=== PATIENT | male | born 1965 | race Caucasian/White ===

== ENCOUNTER → 2017-07-11 15:40 | Outpatient (CLI) | payer MEDICARE, MEDICAID, SELFPAY ==
--- NOTE | 2017-07-11 15:44 | RAD_ITS ---
STUDY: X-RAY CHEST REASON FOR EXAM: Male, 51 years old. Chest pain and cough TECHNIQUE: PA and lateral views of the chest. COMPARISON: 11/04/2015 FINDINGS: Satisfactory position of a left subclavian pacemaker The lungs are clear and expanded. There is no demonstrated pleural abnormality. Normal size heart. Normal mediastinum and zahida. Normal visualized pulmonary arteries. Normal visualized aortic arch and descending thoracic aorta. There are diffuse degenerative changes of the visualized thoracic spine. Normal visualized ribs, clavicles, and shoulders. There is no demonstrated abnormality of the visualized soft tissue structures of the upper abdomen. RAD/Chest PA and Lateral IMPRESSION: No acute pulmonary process Electronically Signed: Santo Lawrence MD at 15:29 EDT , Service support ,
[2017-07-11 15:55] LABS: Bacteria 0 SEEN /hpf (None Seen); Red Blood Cells-Urine 0 SEEN /hpf (0-5); White Blood Cells 0 SEEN /hpf (0-5)
[2017-07-11 16:24] LABS: Color, Urine Yellow (Yellow); Glucose, Dipstick Normal (Normal); Ketone-Dipstick 15 mg/dl (Negative); Leukocyte Esterase-Dipstick Negative /ul (Negative); Nitrite-Dipstick Negative (Negative); Occult Blood-Urine Negative /ul (Negative); Protein-Dipstick Negative (Negative); Specific Gravity, Urine 1.025 (1.002-1.030); Urine Bilirubin Dipstick Negative (Negative); Urine Clarity Clear (Clear); Urine Urobilinogen Normal (Normal)
[2017-07-11 16:29] LABS: Hematocrit 39.6 % (40-54); Hemoglobin 12.6 g/dl (13.0-16.5); Mean Corp Hgb Conc 31.8 g/gl (32-36); Mean Corpuscular Hgb 19.1 pg (27.0-32.0); Mean Corpuscular Volume 60.2 fL (80-94); Platelet Count 194 K/mm3 (150-450); RBC Distribution Width SD 33.2 fl (35.1-43.9); Red Blood Count 6.58 M/mm3 (4.6-6.2); White Blood Count 8.9 K/mm3 (4.4-11.0)
[2017-07-11 16:31] LABS: Prothrombin Time (Protime)PT. 13.4 SECONDS (11.7-14.9)
[2017-07-11 16:35] LABS: Mean Platelet Vol. 11.2 fl (6.2-12.0); Scan Indicated on CBC? Y/N YES- FLAGS NOTED
[2017-07-11 16:48] LABS: Differential Comment SCANNED
[2017-07-11 16:59] LABS: Anion Gap 6 (5-15); BUN 15 mg/dL (7-18); BUN/Creat Ratio 19.5 RATIO (10-20); Calcium,Total 9.2 mg/dL (8.5-10.1); Chloride 103 mmol/L (98-107); Creatinine, Serum 0.77 mg/dL (0.70-1.30); EST Glomerular Filtration Rate 114 mL/min (>60); Est Glom Filt Rate - Afr Amer 138 mL/min (>60); Glucose 92 mg/dL (74-106); Potassium 3.7 mmol/L (3.5-5.1); Sodium Level 139 mmol/L (136-145)
[2017-07-11 17:19] LABS: Mucous, Urine 3+ /hpf (<or=2+); Squamous Epithelial Cells - UA 0-5 SEEN /hpf (0-5)
== END ==
PROVIDERS: Family Provider Internal Medicine; PCP Internal Medicine; Visit Provider Physician Assistant Medical
DX: Z95.810 Presence of automatic (implantable) cardiac defibrillator (principal); I42.0 Dilated cardiomyopathy; I47.2 Ventricular tachycardia; I47.1 Supraventricular tachycardia; I49.5 Sick sinus syndrome; I44.1 Atrioventricular block, second degree; Z86.79 Personal history of other diseases of the circulatory system
CPT/HCPCS: 36415; 71046; 80048; 81001; 85027; 85610

== ENCOUNTER → 2017-07-26 09:21 | Day surgery (SDC) | payer MEDICARE, MEDICAID, SELFPAY ==
[2017-07-25 11:41] VITALS: BMI 30.9
--- NOTE | 2017-07-26 11:21 | PCM.OP.BLANK ---
Problem List (1) Biventricular implantable cardioverter-defibrillator (ICD) in situ Status: Acute Comment: 12/23/98 Dual chamber pacemaker, 08/12/10 Paacemaker generator change & atrial lead repair, 12/08/10 removal of implanted pacemaker, implant of ventricular lead, implant of coronary vein lead, implant of atrial lead, implant of ICD, ICD generator change 11/29
--- NOTE | 2017-07-26 11:34 | PCM.OP.BLANK ---
Problem List (1) Biventricular implantable cardioverter-defibrillator (ICD) in situ Status: Acute Comment: 12/23/98 Dual chamber pacemaker, 08/12/10 Paacemaker generator change & atrial lead repair, 12/08/10 removal of implanted pacemaker, implant of ventricular lead, implant of coronary vein lead, implant of atrial lead, implant of ICD, ICD generator change 11/29 Operative Report Date of Procedure: 07/26/17 Preoperative diagnosis is device at end of life for normal battery depletion. Postoperative diagnosis same as above. After informed consent and IV antibiotics the patient was brought to the [place] catheterization laboratory and the skin over the device was prepped and draped in the usual sterile manner. Intermittent boluses of Versed, fentanyl and propofol were used for sedation and analgesia as well as 1% subcutaneous lidocaine. An incision was made over the pre-existing device. Using blunt and Bovie dissection the pocket was opened and the device was removed. Careful attention was paid not to injure the pre-existing leads. The leads were removed from the device header and they were interrogated. There is normal lead function. Hemostasis was obtained. The pocket was flushed with antibiotic solution. The sponge and needle count were correct. The new device was brought to the field. The leads were placed in the appropriate position in the header and secured by the set screw. The leads and the device were then placed in the pocket. The pocket was closed with a deep layer of running 2-0 Vicryl, a superficial layer of running 4-0 Vicryl, skin with Steri-Strips which were covered with a rolled 4 x 4 and Tegaderm. Patient left the room with the device programmed to proper parameters and there were no complications. All lead parameters were tested and found to be functionally normal. The patient has a BiV ICD with pacemaker dependency. Normal lead function. Battery replaced due to alert for abrupt battery failure for [place] recall. Tyrex antibiotic pouch placed Lead and device serial and model numbers are available in the chart documents provided by the device company airline security representative procedure summary.
== END ==
PROVIDERS: Family Provider Internal Medicine; PCP Internal Medicine; Visit Provider Internal Medicine Cardiovascular Disease
DX: Z45.010 Encounter for checking and testing of cardiac pacemaker pulse generator [battery] (principal); Z95.810 Presence of automatic (implantable) cardiac defibrillator; I42.0 Dilated cardiomyopathy; I49.5 Sick sinus syndrome; I44.1 Atrioventricular block, second degree; I47.1 Supraventricular tachycardia; I47.2 Ventricular tachycardia; Z86.79 Personal history of other diseases of the circulatory system; E78.5 Hyperlipidemia, unspecified
CPT/HCPCS: 33264; 93641; 99152; 99153; J3010; J7030; J7050; A4216; J2785

== ENCOUNTER 2021-06-19 14:06 | Observation (INO) | payer MEDICARE, MEDICAID, SELFPAY ==
[2021-06-19 14:07] VITALS: BP 118/73; PULSE 70; RESP 18; TEMP 35.8; O2SAT 93; BMI 30.7
--- NOTE | 2021-06-19 14:53 | EDS_ITS ---
HPI HPI - GI History of Present Illness Chief Complaint: Abd Pain Informant: patient Abdominal Pain/Flank Pain Onset: Yesterday Context: Gradual Onset Timing: Intermittent Quality: Aching Location: Epigastric Worsened by: Nothing Relieved by: Nothing Nausea/Vomiting/Emesis GI Symptom: Positive for Nausea and Vomiting Quality: Positive for Nonbilious; Negative for Blood streaks, Coffee ground and Hematemesis Diarrhea/Melena/Hematochezia Stool Quality: Positive for Watery Associated Symptoms Associated Symptoms: Negative for Dysuria, Frequency and Hematuria Narrative Narrative: Patient presents with abdominal pain that began yesterday. Patient states it is gradually getting worse. Patient states it can it comes and goes. Patient states the pain is over the epigastric area. Patient describes it as aching. Patient states nothing makes it better nothing makes it worse. Patient admits to some nausea and vomiting. Patient has a colostomy bag and states his stools are usually liquid. Patient denies any melena or hematochezia. Patient denies any dysuria, frequency, or hematuria. [facility] Medical History (Updated 06/19/21 @ 19:[address] Wilbert Padgett, ) Benign hypertension Dilated cardiomyopathy History of complete heart block History of depression Hyperlipidemia Mental retardation Paroxysmal atrial fibrillation Second degree AV block, Mobitz type II Tachycardia-bradycardia syndrome Ulcerative colitis Ventricular tachycardia Home Medications multivitamin with folic acid 1 tab PO DAILY 11/09/15 [History Last Taken 07/26/17] Handicap placard #1 ea 11/01/18 [Rx Last Taken Unknown] cholecalciferol (vitamin D3) 10 mcg (400 unit) capsule 400 unit PO DAILY 04/23/19 [History Last Taken Unknown] ferrous sulfate 325 mg (65 mg iron) tablet,delayed release 325 mg PO BID tab 04/23/19 [History Last Taken Unknown] vitamin B complex 1 tab PO DAILY 04/23/19 [History Last Taken Unknown] carvedilol 3.125 mg tablet 3.125 mg PO BID #60 tab 08/06/20 [Rx Last Taken Unknown] rivaroxaban 20 mg tablet 20 mg PO QDAY #90 tab 09/02/20 [Rx Last Taken Unknown] digoxin 250 mcg (0.25 mg) tablet 250 mcg PO DAILY #90 tab 11/24/20 [Rx Last Taken Unknown] lisinopril 2.5 mg tablet 2.5 mg PO BID #180 tab 11/24/20 [Rx Last Taken Unknown] Allergy/AdvReac Type Severity Reaction Status Date / Time infliximab [From Remicade] Allergy Unknown Verified 06/19/21 14:09 Family History Unknown No problems noted. Surgical History Biventricular implantable cardioverter-defibrillator (ICD) in situ History of ileostomy Social History Smoking Status: Never smoker alcohol intake: never substance use type: does not use caffeine: Yes Type: tea what type of physical activity do you participate in: none seatbelt use: always do you feel safe at home: Yes ROS ROS ED Constitutional Constitutional ED: Denies chills or fever(s) Eyes Eyes: Denies blurry vision or change in vision ENT ENT ED: Denies rhinorrhea or sore throat Cardiovascular Cardiovascular: Denies chest pain or palpitations Respiratory/Chest Respiratory/Chest: Denies cough or dyspnea Gastrointestinal Gastrointestinal: Reports abdominal pain, nausea and vomiting Genitourinary Genitourinary ED: Denies dysuria or hematuria Musculoskeletal Musculoskeletal: Reports back pain; Denies neck pain Integumentary Denies abscess or rash Neurologic Neurologic: Denies headache(s) or weakness Allergic/Immunologic Allergic/Immunologic ED: Denies mouth swelling or urticaria EXAM Physical Exam Const Vital Signs: 06/19/21 14:07 Temperature 96.5 F L Temperature Source Temporal Pulse Rate 70 Respiratory Rate 18 Blood Pressure 118/73 Blood Pressure Mean 88 Pulse Ox 93 Oxygen Delivery Method Room Air Positive well nourished, well developed and unkempt General Appearance ED: unkempt, well developed and NAD HEENT Reports moist mucous membranes Neck supple and no JVD Resp normal respiratory effort and clear to auscultation bilaterally Cardio regular rate, regular rhythm and no murmurs GI normal to inspection, nondistended, normoactive bowel sounds and non-tender Auscultation: normoactive bowel sounds Palpation: soft and tender epigastric, LUQ and RUQ; Negative for guarding or rebound tenderness present Extremity normal to inspection General Extremety ED: Negative for edema or tenderness General Extremity: Negative for edema Neuro oriented x3, CN's II-XII intact bilaterally and no sensory deficits noted Sensorium / Orientation: alert Motor Exam: strength 5/5 throughout Psych mental status grossly normal Appearance: unkempt Skin no rashes or lesions noted MDM MDM MDM Narrative Medical decision making narrative: Patient was given IV fluids, morphine, and Zofran. CBC shows mild anemia with a hemoglobin of 8.2 hematocrit 25.3. Platelets were normal. Comprehensive metabolic profile shows a BUN of 37 and creatinine of 2.23. These are increased from previous results from 2018. Urinalysis does not show any evidence of urinary tract infection. CT scan of the abdomen pelvis was obtained with oral contrast. There is fatty infiltration of the liver. There is no other acute abnormality noted. This was interpreted by the radiologist and reviewed by myself. Case was discussed with the hospitalist. He will admit the patient for observation. Patient understands and is agreeable with the plan. All questions were answered. Lab Data Labs: Laboratory Results - last 24 hr 06/19/21 06/19/21 06/19/21 15:00 15:00 18:20 WBC 7.7 RBC 4.20 L Hgb 8.2 L Hct 25.3 L MCV 60.2 L MCH 19.5 L MCHC 32.4 RDW Std Deviation 33.3 L RDW Coeff of Milagros 15.9 H Plt Count 174 Immature Gran % (Auto) 0.500 Neut % (Auto) 92.5 H Lymph % (Auto) 3.9 L [place] % (Auto) 3.0 Eos % (Auto) 0.0 Baso % (Auto) 0.1 Absolute Neuts (auto) 7.1 Absolute Lymphs (auto) 0.30 L Nucleated RBC % 0 Platelet Estimate ADEQUATE Microcytosis 2+ Sodium 134 L Potassium 4.7 Chloride 98 Carbon Dioxide 27.0 Anion Gap 9 BUN 37 H Creatinine 2.23 H Estim Creat Clear Calc 29.59 Est GFR (MDRD) Af Amer 40 L Est GFR (MDRD) Non-Af 33 L BUN/Creatinine Ratio 16.6 Glucose 178 H Calcium 10.5 H Total Bilirubin 0.80 AST 17 ALT 41 Alkaline Phosphatase 94 Total Protein 9.8 H Albumin 4.5 Globulin 5.3 H Albumin/Globulin Ratio 0.8 L Lipase 40 L Urine Color Yellow Urine Clarity Sl Cldy Urine pH 5.0 Ur Specific [place] 1.025 Urine Protein 30 H Urine Glucose (UA) Normal Urine Ketones 5 H Urine Occult Blood 25 H Urine Nitrite Negative Urine Bilirubin Negative Urine Urobilinogen Normal Ur Leukocyte Esterase 25 H Urine RBC 0-5 SEEN Urine WBC 0-5 SEEN Ur Squamous Epith Cells 0-5 SEEN Urine Bacteria 0 SEEN Urine Mucus 0 SEEN Radiography Diagnostic Testing: Clinical Impression(s) from Imaging Studies Abdomen CT 06/19/21 14:56 IMPRESSION: No acute abnormality. Fatty infiltration of the liver. Electronically Signed: Stiven Swann MD at 17:42 EST , Treatment and Re-Evaluation Vital Sign Attestation:: Vital signs were reviewed prior to admission. They are stable. Discharge Plan Dx/Rx/DC Orders Clinical Impression: Acute kidney injury, Gastroenteritis Disposition Disposition: Acute Care [facility]
--- NOTE | 2021-06-19 14:56 | CT_ITS ---
STUDY: CT ABDOMEN AND PELVIS WITHOUT CONTRAST REASON FOR EXAM: Male, 55 years old. Abdominal pain -- PO Contrast RADIATION DOSAGE (If Supplied By Facility): CTDIvol = ( 8.6 ) mGy, DLP = ( 433.77 ) mGycm TECHNIQUE: Transaxial images were obtained from the dome of the diaphragm to the symphysis pubis with oral contrast, and without intravenous contrast. Sagittal and coronal images were reconstructed. Individualized dose optimization techniques were used for this CT. COMPARISON: 12/22/2012 FINDINGS: The visualized lung bases are unremarkable. The visualized portions of the heart are within normal limits. There is decreased attenuation of the liver consistent with steatosis. Normal gallbladder and extrahepatic biliary system. Normal spleen. Normal pancreas. Normal bilateral adrenal glands. Normal right kidney. Normal left kidney. Normal visualized stomach. Normal small intestine. Status post subtotal colectomy with a right lower quadrant ileostomy. The appendix is visualized and appears normal. Normal abdominal aorta. Normal inferior vena cava. Normal retroperitoneum. Normal urinary bladder. There are prostatic calcifications. Normal abdominal wall. Normal osseous structures. CT/Abdomen/Pel W ORAL Cont Only IMPRESSION: No acute abnormality. Fatty infiltration of the liver. Electronically Signed: Stiven Swann MD at 17:42 EST ,
[2021-06-19] MEDS: Ondansetron 4 MG/2 ML Vial IV (15:07)
[2021-06-19] MEDS: Morphine 4 MG/ML Syringe IV (15:09)
[2021-06-19] MEDS: 0.9% Normal Saline 1,000 ML 1000 ML IV (15:10)
[2021-06-19 15:24] LABS: Absolute Neutrophil Count 7.1 X10^3/uL (2.0-7.7); Basophil# 0.01 X10^3/uL; Basophil% 0.1 % (0-1); Hematocrit 25.3 % (40-54); Hemoglobin 8.2 g/dL (13.0-16.5); Lymphocyte % 3.9 % (19-41); Mean Corp Hgb Conc 32.4 g/dL (32-36); Mean Corpuscular Hgb 19.5 pg (27.0-32.0); Mean Corpuscular Volume 60.2 fL (80-94); Monocyte# 0.23 X10^3/uL; NRBC Flagged by Analyzer 0 % (0-5); Neutrophil # 7.14 X10^3/uL (2.7-7.7); Neutrophil % 92.5 % (47-70); POSITIVE DIFFERENTIAL YES; POSITIVE MORPHOLOGY YES; Platelet Count 174 K/mm3 (150-450); RBC Distribution Width CV 15.9 % (11.6-14.6); RBC Distribution Width SD 33.3 fl (35.1-43.9); White Blood Count 7.7 K/mm3 (4.4-11.0)
[2021-06-19 15:27] LABS: Differential Indicated SCAN CRITERIA MET
[2021-06-19 15:33] LABS: ALB/GLOB Ratio 0.8 RATIO (0.9-2.4); AST(SGOT) 17 U/L (15-37); Alanine Aminotransfer ALT/SGPT 41 U/L (16-61); Albumin, Serum 4.5 g/dL (3.2-5.0); Alkaline Phosphatase 94 U/L (45-117); Anion Gap 9 (5-15); BUN 37 mg/dL (7-18); BUN/Creat Ratio 16.6 RATIO (10-20); Calcium,Total 10.5 mg/dL (8.5-10.1); Chloride 98 mmol/L (98-107); Creatinine, Serum 2.23 mg/dL (0.70-1.30); EST Glomerular Filtration Rate 33 mL/min (>60); Est Glom Filt Rate - Afr Amer 40 mL/min (>60); Estimated Creatinine Clearance 29.59 ml/min; Globulin 5.3 g/dL (2.2-4.2); Glucose 178 mg/dL (74-106); Lipase 40 U/L (73-393); Potassium 4.7 mmol/L (3.5-5.1); Protein, Total 9.8 g/dL (6.4-8.2); Sodium Level 134 mmol/L (136-145)
[2021-06-19 15:48] LABS: Microcytosis 2+; Platelet Estimate ADEQUATE (ADEQ)
[2021-06-19 18:27] LABS: Bacteria 0 SEEN /hpf (None Seen); Mucous, Urine 0 SEEN /hpf (<or=2+)
[2021-06-19 18:29] LABS: Color, Urine Yellow (Yellow); Glucose, Dipstick Normal (Normal); Ketone-Dipstick 5 mg/dl (Negative); Nitrite-Dipstick Negative (Negative); Occult Blood-Urine 25 /ul (Negative); Protein-Dipstick 30 mg/dl (Negative); Specific Gravity, Urine 1.025 (1.002-1.030); Urine Bilirubin Dipstick Negative (Negative); Urine Clarity Sl Cldy (Clear); Urine Urobilinogen Normal (Normal)
[2021-06-19 18:30] LABS: Leukocyte Esterase-Dipstick 25 /ul (Negative)
[2021-06-19 18:34] LABS: Red Blood Cells-Urine 0-5 SEEN /hpf (0-5); Squamous Epithelial Cells - UA 0-5 SEEN /hpf (0-5); White Blood Cells 0-5 SEEN /hpf (0-5)
[2021-06-19] MEDS: Acetaminophen 500 MG Tablet 1000 MG PO (19:05)
[2021-06-19] MEDS: 0.9% Normal Saline 1,000 ML 999 ML IV (19:43)
[2021-06-19 19:44] VITALS: BP 112/71; PULSE 68; RESP 14; TEMP 36.6; O2SAT 97
--- NOTE | 2021-06-19 19:47 | HP.PCM.HOS_ITS ---
HPI - General HPI Narrative MARCELA IGNACIO, is a 55 M who presents to the hospital with abdominal pain, nausea, and vomiting. He states that this started last night after he ate some chicken or turkey. It does appear that he has some type of learning disability and has a mixed livestock farmer who checks in on him every couple of days. He denies any lightheadedness or dizziness, states that his abdominal pain is better now and that his nausea has improved a little bit. He does have a colostomy secondary to ulcerative colitis that he said was placed in 2009. He has noticed that his stool has been fairly liquidy over the last several days which is not normal for him. In the ER he did not doses but he was found in acute failure with a creat inine of 2.23 however his most recent creatinine prior to this 1 was about 4 years ago. Also his hemoglobin was 8.2 but he denies any blood in his stool. He is supposed to be on iron replacement at home as well. [facility] Medical History (Updated 06/19/21 @ 19:[address] Wilbert Padgett, DO) Benign hypertension Dilated cardiomyopathy History of complete heart block History of depression Hyperlipidemia Mental retardation Paroxysmal atrial fibrillation Second degree AV block, Mobitz type II Tachycardia-bradycardia syndrome Ulcerative colitis Ventricular tachycardia Home Medications multivitamin with folic acid 1 tab PO DAILY 11/09/15 [History Last Taken 07/26/17] Handicap placard #1 ea 11/01/18 [Rx Last Taken Unknown] cholecalciferol (vitamin D3) 10 mcg (400 unit) capsule 400 unit PO DAILY 04/23/19 [History Last Taken Unknown] vitamin B complex 1 tab PO DAILY 04/23/19 [History Last Taken Unknown] carvedilol 3.125 mg tablet 3.125 mg PO BID #60 tab 08/06/20 [Rx Last Taken Unknown] rivaroxaban 20 mg tablet 20 mg PO QDAY #90 tab 09/02/20 [Rx Last Taken Unknown] digoxin 250 mcg (0.25 mg) tablet 250 mcg PO DAILY #90 tab 11/24/20 [Rx Last Taken Unknown] lisinopril 2.5 mg tablet 2.5 mg PO BID #180 tab 11/24/20 [Rx Last Taken Unknown] alendronate 70 mg PO DAILY 06/19/21 [History Last Taken Unknown] Allergy/AdvReac Type Severity Reaction Status Date / Time infliximab [From Remicade] Allergy Unknown Verified 06/19/21 14:09 Family History Unknown No problems noted. Surgical History Biventricular implantable cardioverter-defibrillator (ICD) in situ History of ileostomy Social History Smoking Status: Never smoker alcohol intake: never substance use type: does not use caffeine: Yes Type: tea what type of physical activity do you participate in: none seatbelt use: always do you feel safe at home: Yes ROS Constitutional Constitutional: Denies chills, fatigue, fever(s) or malaise Eyes Eyes: Denies blurry vision ENT HEENT: Denies headache(s) or nasal discharge Cardiovascular Cardiovascular: Denies chest pain, dyspnea on exertion or syncope Respiratory/Chest Respiratory/Chest: Denies cough, shortness of breath at rest or shortness of breath with exertion Gastrointestinal Gastrointestinal: Reports nausea and vomiting; Denies constipation or diarrhea Genitourinary Genitourinary: Denies dysuria Neurologic Neurologic: Denies focal weakness, numbness or tremor(s) Psychiatric Psychiatric: Denies anxiety or depression Vital Signs Vital Signs Vital Signs: 06/19/21 14:07 06/19/21 19:44 Temperature 96.5 F L 97.9 F Temperature Source Temporal Temporal Pulse Rate 70 68 Respiratory Rate 18 14 Blood Pressure 118/73 112/71 Blood Pressure Mean 88 84 Pulse Ox 93 97 Oxygen Delivery Method Room Air Room Air Weight Weight: 167 lb 9.6 oz Body Mass Index (BMI) 30.7 Physical Exam Const alert, oriented x3 and no apparent distress General Appearance: cooperative HEENT normocephalic Mouth: dry mucous membranes Eyes PERRL, EOMs intact bilaterally and conjunctivae normal Neck supple and no JVD Resp normal respiratory effort, no retractions, no use of accessory muscles and clear to auscultation bilaterally Auscultation: Negative for crackles, rales, rhonchi or wheezes Cardio regular rate, regular rhythm, S1 normal heart sound, S2 normal heart sound and no murmurs GI soft to palpation, non-tender and non-distended; Negative for hepatosplenomegaly GI Narrative: Ostomy with liquid stool in his right lower quadrant Extremity no clubbing, cyanosis or edema Skin no rashes or lesions noted Neuro no focal motor deficits and no sensory deficits noted Psych affect normal Appearance: appropriate Results Lab / Micro Data Result Diagrams: 06/19/21 15:00 06/19/21 15:00 Labs: Laboratory Results - last 24 hr 06/19/21 15:00: WBC 7.7, RBC 4.20 L, Hgb 8.2 L, Hct 25.3 L, MCV 60.2 L, MCH 19.5 L, MCHC 32.4, RDW Std Deviation 33.3 L, RDW Coeff of Milagros 15.9 H, Plt Count 174, Immature Gran % (Auto) 0.500, Neut % (Auto) 92.5 H, Lymph % (Auto) 3.9 L, [place] % (Auto) 3.0, Eos % (Auto) 0.0, Baso % (Auto) 0.1, Absolute Neuts (auto) 7.1, Absolute Lymphs (auto) 0.30 L, Nucleated RBC % 0, Platelet Estimate ADEQUATE, Microcytosis 2+ 06/19/21 15:00: Sodium 134 L, Potassium 4.7, Chloride 98, Carbon Dioxide 27.0, Anion Gap 9, BUN 37 H, Creatinine 2.23 H, Estim Creat Clear Calc 29.59, Est GFR (MDRD) Af Amer 40 L, Est GFR (MDRD) Non-Af 33 L, BUN/Creatinine Ratio 16.6, Glucose 178 H, Calcium 10.5 H, Total Bilirubin 0.80, AST 17, ALT 41, Alkaline Phosphatase 94, Total Protein 9.8 H, Albumin 4.5, Globulin 5.3 H, Al bumin/Globulin Ratio 0.8 L, Lipase 40 L 06/19/21 18:20: Urine Color Yellow, Urine Clarity Sl Cldy, Urine pH 5.0, Ur Specific [place] 1.025, Urine Protein 30 H, Urine Glucose (UA) Normal, Urine Ketones 5 H, Urine Occult Blood 25 H, Urine Nitrite Negative, Urine Bilirubin Negative, Urine Urobilinogen Normal, Ur Leukocyte Esterase 25 H, Urine RBC 0-5 S EEN, Urine WBC 0-5 SEEN, Ur Squamous Epith Cells 0-5 SEEN, Urine Bacteria 0 SEEN, Urine Mucus 0 SEEN Radiology Impression Abdomen CT 06/19/21 14:56 IMPRESSION: No acute abnormality. Fatty infiltration of the liver. Electronically Signed: Stiven Swann MD at 17:42 EST , Assessment & Plan Assessment/Plan (1) Acute kidney injury: (2) Gastroenteritis: PLAN: 1. GLORY secondary to dehydration from gastroenteritis/status post ostomy for ulcerative colitis ?Placed on antiemetic and start him on IV fluids ?We will hold any nephrotoxic medications he takes ?Baseline creatinine seems to be around 0.7 however we have not had a recent creatinine since 2018 ?Ostomy is intact with liquid stool we will monitor 2. Paroxysmal A. fib/dilated cardiomyopathy/tachybradycardia syndrome status post pacemaker and defibrillator/HTN ?We will hold his Xarelto and his digoxin as well as his lisinopril secondary to his GLORY ?Can resume Coreg 3. Osteoporosis ?Stable ?Can resume alendronate on discharge if his renal function is improved DVT: Ambulation Charges/Coding Visit Charges OBSV E&M: 97257 Initial observation care L2
[2021-06-19 20:32] VITALS: BMI 31.1
[2021-06-19 20:39] VITALS: BP 130/72; PULSE 86; RESP 20; TEMP 37.1; O2SAT 98
[2021-06-19] MEDS: 0.9% Normal Saline 1,000 ML 100 ML IV (20:43)
[2021-06-19] MEDS: Carvedilol 3.125 MG TABLET PO (20:50)
[2021-06-19 21:12] LABS: Ferritin 81 ng/mL (26-388); Iron 48 ug/dL (65-175); Iron Binding Capacity,Total 459 ug/dL (250-450); PERCENT IRON SATURATION 10.5 % (15.0-55.0)
[2021-06-20 02:35] VITALS: BP 116/64; PULSE 71; RESP 18; TEMP 36.5; O2SAT 100
[2021-06-20] MEDS: 0.9% Normal Saline 1,000 ML 100 ML IV (05:39)
[2021-06-20 05:46] LABS: Absolute Lymphocyte Count 1.11 X10^3/uL (0.83-4.51); Absolute Neutrophil Count 6.2 X10^3/uL (2.0-7.7); Basophil# 0.03 X10^3/uL; Basophil% 0.3 % (0-1); Eosinophil# 0.24 X10^3/uL; Eosinophils% 2.8 % (0-5); Hemoglobin 12.7 g/dL (13.0-16.5); Lymphocyte # 1.11 X10^3/ul (0.83-4.51); Lymphocyte % 12.9 % (19-41); Mean Corp Hgb Conc 31.8 g/dL (32-36); Mean Corpuscular Hgb 19.7 pg (27.0-32.0); Mean Corpuscular Volume 61.9 fL (80-94); Monocyte# 0.98 X10^3/uL; Monocyte% 11.4 % (0-10); NRBC Flagged by Analyzer 0 % (0-5); Neutrophil # 6.21 X10^3/uL (2.7-7.7); Neutrophil % 71.9 % (47-70); Platelet Count 194 K/mm3 (150-450); RBC Distribution Width CV 17.5 % (11.6-14.6); RBC Distribution Width SD 33.6 fl (35.1-43.9); Red Blood Count 6.46 M/mm3 (4.6-6.2); White Blood Count 8.6 K/mm3 (4.4-11.0)
[2021-06-20 06:00] LABS: Anion Gap 3 (5-15); BUN 30 mg/dL (7-18); BUN/Creat Ratio 36.5 RATIO (10-20); Calcium,Total 8.2 mg/dL (8.5-10.1); Chloride 109 mmol/L (98-107); Creatinine, Serum 0.82 mg/dL (0.70-1.30); EST Glomerular Filtration Rate 104 mL/min (>60); Est Glom Filt Rate - Afr Amer 126 mL/min (>60); Estimated Creatinine Clearance 80.46 ml/min; Glucose 105 mg/dL (74-106); Potassium 3.6 mmol/L (3.5-5.1); Sodium Level 139 mmol/L (136-145)
[2021-06-20 08:45] VITALS: BP 114/67; PULSE 81; RESP 16; TEMP 37; O2SAT 94
[2021-06-20] MEDS: Carvedilol 3.125 MG TABLET PO ×2 (08:57→19:53)
--- NOTE | 2021-06-20 09:02 | PN.HOSP_ITS ---
Subjective Subjective Patient still having increased output from the ileostomy bag. Patient looks dehydrated. BUN 30. Objective Data Objective Data Vital Signs: Vital Signs Temp Pulse Resp BP Pulse Ox 98.6 F 81 16 114/67 94 06/20/21 08:45 06/20/21 08:45 06/20/21 08:45 06/20/21 08:45 06/20/21 08:45 Oxygen Delivery Method Room Air Weight: 170 lb 10.205 oz Body Mass Index (BMI) 31.1 Intake & Output: Intake and Output for Last 24 Hours 06/18/21 06/19/21 06/20/21 23:59 23:59 23:59 Intake Total 1999 893.33 / 893.33 Output Total 1150 / 1150 Balance 1999 -256.67 / -256.67 Lab / Micro Data Result Diagrams: 06/20/21 05:18 06/20/21 05:18 Labs: Laboratory Results - last 24 hr 06/19/21 15:00: WBC 7.7, RBC 4.20 L, Hgb 8.2 L, Hct 25.3 L, MCV 60.2 L, MCH 19.5 L, MCHC 32.4, RDW Std Deviation 33.3 L, RDW Coeff of Milagros 15.9 H, Plt Count 174, Immature Gran % (Auto) 0.500, Neut % (Auto) 92.5 H, Lymph % (Auto) 3.9 L, [place] % (Auto) 3.0, Eos % (Auto) 0.0, Baso % (Auto) 0.1, Absolute Neuts (auto) 7.1, Absolute Lymphs (auto) 0.30 L, Nucleated RBC % 0, Platelet Estimate ADEQUATE, Microcytosis 2+ 06/19/21 15:00: Sodium 134 L, Potassium 4.7, Chloride 98, Carbon Dioxide 27.0, Anion Gap 9, BUN 37 H, Creatinine 2.23 H, Estim Creat Clear Calc 29.59, Est GFR (MDRD) Af Amer 40 L, Est GFR (MDRD) Non-Af 33 L, BUN/Creatinine Ratio 16.6, Glucose 178 H, Calcium 10.5 H, Total Bilirubin 0.80, AST 17, ALT 41, Alkaline Phosphatase 94, Total Protein 9.8 H, Albumin 4.5, Globulin 5.3 H, Albumin/Globulin Ratio 0.8 L, Lipase 40 L 06/19/21 15:00: Iron 48 L, TIBC 459 H, Iron Saturation 10.5 L, Ferritin 81 06/19/21 18:20: Urine Color Yellow, Urine Clarity Sl Cldy, Urine pH 5.0, Ur Specific [place] 1.025, Urine Protein 30 H, Urine Glucose (UA) Normal, Urine Ketones 5 H, Urine Occult Blood 25 H, Urine Nitrite Negative, Urine Bilirubin Negative, Urine Urobilinogen Normal, Ur Leukocyte Esterase 25 H, Urine RBC 0-5 SEEN, Urine WBC 0-5 SEEN, Ur Squamous Epith Cells 0-5 SEEN, Urine Bacteria 0 SEEN, Urine Mucus 0 SEEN 06/20/21 05:18: WBC 8.6, RBC 6.46 H, Hgb 12.7 L, Hct 40.0, MCV 61.9 L, MCH 19.7 L, MCHC 31.8 L, RDW Std Deviation 33.6 L, RDW Coeff of Milagros 17.5 H, Plt Count 194, Immature Gran % (Auto) 0.700, Neut % (Auto) 71.9 H, Lymph % (Auto) 12.9 L, [place] % (Auto) 11.4 H, Eos % (Auto) 2.8, Baso % (Auto) 0.3, Absolute Neuts (auto) 6.2, Absolute Lymphs (auto) 1.11, Nucleated RBC % 0 06/20/21 05:18: Sodium 139, Potassium 3.6, Chloride 109 H, Carbon Dioxide 27.0, Anion Gap 3 L, BUN 30 H, Creatinine 0.82, Estim Creat Clear Calc 80.46, Est GFR (MDRD) Af Amer 126, Est GFR (MDRD) Non-Af 104, BUN/Creatinine Ratio 36.5 H, Glucose 105, Calcium 8.2 L Radiography Diagnostic Testing: Radiology Impression Abdomen CT 06/19/21 14:56 IMPRESSION: No acute abnormality. Fatty infiltration of the liver. Electronically Signed: Stiven Swann MD at 17:42 EST , Physical Exam Narrative General: Alert, Oriented x3, Cooperative HEENT: Atraumatic, PERRLA, EOMI, Normocephalic Oral: No Gingival or Mucosal Lesions/ Ulcerations Neck: Supple, No JVD, Negative Carotid Bruits Lungs: Air entry diminished in bilateral lung bases. No crepitation/rhonchi Cardiovascular: Regular rate, Regular Rhythm, Normal S1, Normal S2, No murmurs Abdomen: Bowel Sounds Present, Soft, Non Tender, Non-Distended. Ileostomy bag with liquidy stool yellow in color : No renal angle tenderness. No suprapubic tenderness. Extremities: No edema, Capillary Refill Less than 3 Seconds Skin: No rashes, No breakdown Musculoskeletal: No Tenderness to Palpation of Joints or Extremities Neurological: Cranial nerves II-XII grossly intact, DTR 2+/4 and Symmetrical, Neuro grossly intact Psych/Mental Status: Mild learning debility. Assessment & Plan Assessment/Plan (1) Acute kidney injury: (2) Gastroenteritis: PLAN: 1. GLORY most likely prerenal from prerenal: Volume resuscitation. Monitor kidney function. BUN/creatinine ratio 36. Creatinine improved from 2.23-0.82. GLORY resolved. 2. Acute gastroenteritis with increased liquid output status post ostomy for ulcerative colitis: Patient had 7 liquid bowel movements today therefore continue IV fluid volume resuscitation. Heart rate and blood pressure are in normal range. On antiemetic. 2. Paroxysmal A. fib/dilated cardiomyopathy/tachybradycardia syndrome status post pacemaker and defibrillator: Xarelto resumed. Digoxin from tomorrow 125 mcg daily. Continue holding lisinopril On Coreg. 3. Osteoporosis: Alendronate on hold. Resume once patient is discharged DVT: On Xarelto. Charges/Coding Visit Charges Inpatient E&M: 32422 Subs Hosp L2
[2021-06-20] MEDS: 0.45% Normal Saline 1,000 ML 100 ML IV (15:38)
[2021-06-20] MEDS: Rivaroxaban 20 MG Tablet PO (17:21)
[2021-06-20 19:48] VITALS: BP 120/52; PULSE 66; RESP 16; TEMP 37.1; O2SAT 97
[2021-06-21 01:56] VITALS: BP 108/57; PULSE 62; RESP 16; TEMP 37; O2SAT 96
[2021-06-21 07:12] LABS: Absolute Lymphocyte Count 1.54 X10^3/uL (0.83-4.51); Absolute Neutrophil Count 3.6 X10^3/uL (2.0-7.7); Basophil# 0.02 X10^3/uL; Basophil% 0.3 % (0-1); Eosinophil# 0.49 X10^3/uL; Eosinophils% 7.4 % (0-5); Hematocrit 36.2 % (40-54); Hemoglobin 11.1 g/dL (13.0-16.5); Lymphocyte # 1.54 X10^3/ul (0.83-4.51); Lymphocyte % 23.4 % (19-41); Mean Corp Hgb Conc 30.7 g/dL (32-36); Mean Corpuscular Hgb 18.9 pg (27.0-32.0); Mean Corpuscular Volume 61.7 fL (80-94); Monocyte# 0.94 X10^3/uL; Monocyte% 14.3 % (0-10); NRBC Flagged by Analyzer 0 % (0-5); Neutrophil # 3.56 X10^3/uL (2.7-7.7); Neutrophil % 54.1 % (47-70); Platelet Count 175 K/mm3 (150-450); RBC Distribution Width CV 16.7 % (11.6-14.6); RBC Distribution Width SD 34.2 fl (35.1-43.9); Red Blood Count 5.87 M/mm3 (4.6-6.2); White Blood Count 6.6 K/mm3 (4.4-11.0)
[2021-06-21 07:30] VITALS: BP 116/66; PULSE 60; RESP 14; TEMP 36.7; O2SAT 98
[2021-06-21 07:32] LABS: Anion Gap 4 (5-15); BUN 17 mg/dL (7-18); BUN/Creat Ratio 27.6 RATIO (10-20); Chloride 108 mmol/L (98-107); Creatinine, Serum 0.62 mg/dL (0.70-1.30); EST Glomerular Filtration Rate 145 mL/min (>60); Est Glom Filt Rate - Afr Amer 176 mL/min (>60); Estimated Creatinine Clearance 106.41 ml/min; Glucose 78 mg/dL (74-106); Potassium 3.7 mmol/L (3.5-5.1); Sodium Level 140 mmol/L (136-145)
[2021-06-21 07:34] VITALS: PULSE 60
[2021-06-21] MEDS: Multivitamins,Ther W-Minerals Tablet 1 TABLET PO (07:34)
[2021-06-21] MEDS: Digoxin 125 MCG Tablet PO (07:34)
[2021-06-21] MEDS: Vitamin B Comp W-C Capsule 1 CAP PO (07:34)
[2021-06-21] MEDS: Carvedilol 3.125 MG TABLET PO (07:34)
--- NOTE | 2021-06-21 08:20 | PCM.DC ---
Discharge Instructions Diet Discharge Diet: Soft diet (Soft diet for 3 days and then regular diet.) Activity Discharge Activity: May Not Drive Dressing / Incision Call your doctor if you observe: Fever of 101 or Higher, Coldness, Increased Pain, Numbness or Tingling, Change in Color, Inability to urinate, Inability to have a bowel movement, Shortness of breath, Dizziness, Fainting spells, Swelling in the ankles, Chest pain, Prolonged hiccupping, Increased palpitations (irregular heartbeat), Calf discomfort and Uncontrolled pain Follow Up Care Test Results: Test results from this visit will be discussed in further detail at your follow-up appointment, if applicable. Discharge Plan Admission Admit Date/Time: 06/20/21 10:44 Primary Reason for Your Visit: Acute kidney injury. Attending Provider: Houston Archibald Primary Care Provider: Maritza Hikcey Discharge Orders/Prescriptions Prescriptions: Continued cholecalciferol (vitamin D3) 400 unit capsule 400 unit PO DAILY RF: 0 vitamin B complex [B Complex-Vitamin B12] Tablet 1 tab PO DAILY RF: 0 multivitamin with folic acid 1 TABLET tablet 1 tab PO DAILY RF: 0 alendronate 70 mg tablet 70 mg PO QWEEK RF: 0 rivaroxaban 20 mg tablet 20 mg PO QDAY RF: 0 (DME) Handicap placard Qty: 1 RF: 0 carvedilol 3.125 mg tablet 3.125 mg PO BID Qty: 60 RF: 11 Changed digoxin 250 mcg (0.25 mg) tablet 125 mcg PO DAILY Qty: 0 RF: 0 lisinopril 2.5 mg tablet 2.5 mg PO DAILY Qty: 0 RF: 0 Referrals / Follow Up: Maritza Hickey MD [Primary Care Provider] - Within 1 Week Ace Sahu MD [STAFF PHYSICIAN] - Within 1 Month (History of complete heart block, status post AICD, VT, dilated cardiomyopathy, paroxysmal A. fib) Disposition Disposition (needs filled in before D/C Order can be placed): Home, Self Care
--- NOTE | 2021-06-21 08:21 | DS.PCM_ITS ---
Providers Date of Admission: 06/20/21 Date of Discharge: 06/21/21 Primary Care Physician: Dr. Maritza Hickey MD Reason For Visit: DEHYDRATION AND GLORY Diagnosis Discharge Diagnosis (1) Acute kidney injury: Status: Acute Code(s): N17.9 - Acute kidney failure, unspecified (2) Gastroenteritis: Status: Acute Code(s): K52.9 - Noninfective gastroenteritis and colitis, unspecified Medications at Discharge Home Medications multivitamin with folic acid 1 tab PO DAILY 11/09/15 Handicap placard #1 ea 11/01/18 cholecalciferol (vitamin D3) 10 mcg (400 unit) capsule 400 unit PO DAILY 04/23/19 vitamin B complex 1 tab PO DAILY 04/23/19 carvedilol 3.125 mg tablet 3.125 mg PO BID #60 tab 08/06/20 alendronate 70 mg PO QWEEK 06/19/21 rivaroxaban 20 mg PO QDAY 06/19/21 digoxin 125 mcg PO DAILY #0 tab 06/21/21 lisinopril 2.5 mg PO DAILY #0 tab 06/21/21 Hospital Course Summary of Care Provided Hospital Course: This is a 55-year-old gentleman with mild learning disability admitted with abdominal pain, nausea and vomiting for 2 days prior to admission. He ate chicken and turkey before that. Patient admitted with acute kidney injury from hypovolemia. 1. GLORY most likely prerenal from prerenal: Volume resuscitation. Monitor kidney function. BUN/creatinine ratio 36. Creatinine improved from 2.23-0.82. GLORY resolved. 2. Acute gastroenteritis with increased liquid output status post ostomy for ulcerative colitis: Patient had 7 liquid bowel movements today therefore continue IV fluid volume resuscitation. Heart rate and blood pressure are in normal range. On antiemetic. 2. Paroxysmal A. fib/dilated cardiomyopathy/tachybradycardia syndrome status post pacemaker and defibrillator: Xarelto resumed. Digoxin from tomorrow 125 mcg daily. Continue holding lisinopril and resume from 06/23. On Coreg 3.125 mg twice daily. Digoxin dose decreased to 125 mcg daily. 3. Osteoporosis: Resume once patient is discharged DVT: On Xarelto. Discharge medication reconciliation done. Discharge follow-up instructions completed. Discharge process discussed with the patient and all questions were answered to patient's satisfaction. Discharged home.Lisinopril dose decreased to 2.5 mg daily to start from 06/23/2021 and digoxin dose decreased to 125 mcg daily. Follow with hot metal mixer operator Dr. Sahu in the month. Follow-up PCP Total time spent, exact 35 minutes on discharge meds reconciliation, examina tion, coordination of care with nurses and ancillary staff, review of imaging and blood test and discussion with the patient on follow-up instructions. Physical Exam Narrative General: Alert, Oriented x3, Cooperative HEENT: Atraumatic, PERRLA, EOMI, Normocephalic Oral: No Gingival or Mucosal Lesions/ Ulcerations Neck: Supple, No JVD, Negative Carotid Bruits Lungs: Air entry diminished in bilateral lung bases. No crepitation/rhonchi Cardiovascular: Regular rate, Regular Rhythm, Normal S1, Normal S2, No murmurs Abdomen: Bowel Sounds Present, Soft, Non Tender, Non-Distended. Ileostomy bag with thick liquid stool. No blood. : No renal angle tenderness. No suprapubic tenderness. Extremities: No edema, Capillary Refill Less than 3 Seconds Skin: No rashes, No breakdown Musculoskeletal: No Tenderness to Palpation of Joints or Extremities Neurological: Cranial nerves II-XII grossly intact, DTR 2+/4 and Symmetrical, Neuro grossly intact Psych/Mental Status: Mild learning debility. Weight / BMI Weight Weight: 170 lb 10.205 oz Body Mass Index (BMI) 31.1 ABG / Lab / Microbiology Data Result Diagrams: 06/21/21 06:35 06/21/21 06:35 Laboratory: Laboratory Results - last 24 hr 06/21/21 06:35: WBC 6.6, RBC 5.87, Hgb 11.1 L, Hct 36.2 L, MCV 61.7 L, MCH 18.9 L, MCHC 30.7 L, RDW Std Deviation 34.2 L, RDW Coeff of Milagros 16.7 H, Plt Count 175, Immature Gran % (Auto) 0.500, Neut % (Auto) 54.1, Lymph % (Auto) 23.4, [place] % (Auto) 14.3 H, Eos % (Auto) 7.4 H, Baso % (Auto) 0.3, Absolute Neuts (auto) 3.6, Absolute Lymphs (auto) 1.54, Nucleated RBC % 0 06/21/21 06:35: Sodium 140, Potassium 3.7, Chloride 108 H, Carbon Dioxide 28.0, Anion Gap 4 L, BUN 17, Creatinine 0.62 L, Estim Creat Clear Calc 106.41, Est GFR (MDRD) Af Amer 176, Est GFR (MDRD) Non-Af 145, BUN/Creatinine Ratio 27.6 H, Glucose 78, Calcium 8.0 L Meaningful Use Info Meaningful Use Diagnoses (Choose all that apply): None applicable Discharge Plan Admission Admit Date/Time: 06/20/21 10:44 Primary Reason for Your Visit: Acute kidney injury. Attending Provider: Houston Archibald Primary Care Provider: Maritza Hickey Discharge Orders/Prescriptions Prescriptions: Continued cholecalciferol (vitamin D3) 400 unit capsule 400 unit PO DAILY RF: 0 vitamin B complex [B Complex-Vitamin B12] Tablet 1 tab PO DAILY RF: 0 multivitamin with folic acid 1 TABLET tablet 1 tab PO DAILY RF: 0 alendronate 70 mg tablet 70 mg PO QWEEK RF: 0 rivaroxaban 20 mg tablet 20 mg PO QDAY RF: 0 (DME) Handicap placard Qty: 1 RF: 0 carvedilol 3.125 mg tablet 3.125 mg PO BID Qty: 60 RF: 11 Changed digoxin 250 mcg (0.25 mg) tablet 125 mcg PO DAILY Qty: 0 RF: 0 lisinopril 2.5 mg tablet 2.5 mg PO DAILY Qty: 0 RF: 0 Referrals / Follow Up: Maritza Hickey MD [Primary Care Provider] - Within 1 Week Ace Sahu MD [STAFF PHYSICIAN] - Within 1 Month (History of complete heart block, status post AICD, VT, dilated cardiomyopathy, paroxysmal A. fib) Disposition Disposition (needs filled in before D/C Order can be placed): Home, Self Care Charges/Coding Visit Charges Inpatient E&M: 40932 Disch Hosp
--- NOTE | 2021-06-21 11:00 | CASEMGMT ---
HARMAN HOUSER Assessment: Face to Face with pt for initial transition planning/care coordination assessment. RN CORRINA introduced self and role at [facility], pt voices understanding and consents to assessment. Pt is A/O x4 and answers all questions appropriately at this time. Pt sitting on edge of bed in no distress, dressed and ready for dc. Care providers, pharmacy, and demographics verified/updated. Admitting Dx: dehydration, GLORY PCP:Ed[place]ira per chart, pt could not confirm this but states pt is at the [facility]. Specialists: Pt denies. Preferred Pharmacy: [facility] Insurance: SHELBY Diehl Prescription Benefit: yes LW/HPOA: Pt denies having a LW/DPOA and denies need for info regarding AD. Pt wishes for resources for this. He states he has asked his gold leaf roller to assist without success. Provided pt with information and administrator social welfare phone number to call if he decides to complete. LNOK: Loretta Pena, gold leaf roller Living Arrangements: Pt lives alone in a ground level apt with no steps to enter. Pt reports he is I in ADL's and denies concerns at home. Transportation: Pt drives self and denies concerns with transportation. DME/HHC/SNF: Pt denies having any DME in the home, hx of HHC but has been at [facility] and [facility]. Pt states no concerns with going home at time of dc. Pt states no further concerns/needs. CM to follow. Advised pt to ask CM if any further question/concerns/needs arise, voices understanding. Pt Goal: Home Plan: Home
== END 2021-06-21 12:06 | disposition home or self-care (01) | DRG 392 ==
LOC: ED 19:39 → MS3 06-20 07:57
PROVIDERS: Admitting Provider Family Medicine; Emergency Provider Emergency Medicine; PCP Internal Medicine; Visit Provider Internal Medicine
DX: K52.9 Noninfective gastroenteritis and colitis, unspecified (principal); Z93.3 Colostomy status; N17.9 Acute kidney failure, unspecified; I42.0 Dilated cardiomyopathy; K51.90 Ulcerative colitis, unspecified, without complications; I48.0 Paroxysmal atrial fibrillation; K76.0 Fatty (change of) liver, not elsewhere classified; E86.1 Hypovolemia; D64.9 Anemia, unspecified; E78.5 Hyperlipidemia, unspecified; I10 Essential (primary) hypertension; M81.0 Age-related osteoporosis without current pathological fracture; F81.9 Developmental disorder of scholastic skills, unspecified; Z95.810 Presence of automatic (implantable) cardiac defibrillator; Z79.01 Long term (current) use of anticoagulants; Z79.899 Other long term (current) drug therapy; E86.0 Dehydration
CPT/HCPCS: 36415; 74176; 80048; 80053; 81001; 82728; 83540; 83550; 83690; 85025; 96361; 96374; 96375; 99218; 99284; J7030; A4216; G0378; J2405

== ENCOUNTER 2021-12-27 17:32 | Emergency (ER) | payer MEDICARE, MEDICAID, SELFPAY ==
[2021-12-27 17:33] VITALS: BP 127/69; PULSE 106; RESP 15; TEMP 38.2; O2SAT 98; BMI 29.2
--- NOTE | 2021-12-27 18:54 | EDS_ITS ---
HPI HPI - GI History of Present Illness Chief Complaint: Nausea/Vomiting Narrative Narrative: 56-year-old male with MRDD presenting with his caregiver for not feeling well for the last week. Patient developed a fever overnight which was last treated with Tylenol at about noon today. Patient was seen at the urgent care where he was evaluated and his caregiver states that he had some right-sided facial swelling. They evaluated him and told him he had an infected tooth on the right side. He states he does not have a tooth back here. He was given discharge instructions with say he has a viral illness but he was not tested for any viruses. He was put on Augmentin for a dental infection as well. When he got his medicines and got home he vomited them up and when he went back to the urgent care they sent him to the emergency room. Patient complains of some epigastric abdominal pain. He states he coughs from time to time. He admits to increased ostomy output over the last couple of days. No urinary complaints. He does complain of a headache which does respond to Tylenol. Patient does not have any chest pain or shortness of breath. [facility] Medical History Benign hypertension Dilated cardiomyopathy History of complete heart block History of depression Hyperlipidemia Mental retardation Paroxysmal atrial fibrillation Second degree AV block, Mobitz type II Tachycardia-bradycardia syndrome Ulcerative colitis Ventricular tachycardia Home Medications multivitamin with folic acid 400 mcg tablet 1 tab PO DAILY supplement 11/09/15 [History Last Taken 06/18/21] Handicap placard #1 ea 11/01/18 [Rx Last Taken Unknown] cholecalciferol (vitamin D3) 10 mcg (400 unit) capsule 400 unit PO DAILY supplement 04/23/19 [History Last Taken 06/18/21] vitamin B complex (B Complex-Vitamin B12 tablet) 1 tab PO DAILY supplement 04/23/19 [History Last Taken 06/18/21] alendronate 70 mg tablet 70 mg PO QWEEK supplement 06/19/21 [History Last Taken Unknown] carvedilol 3.125 mg tablet 3.125 mg PO BID #60 tabs 07/07/21 [Rx Last Taken Unknown] rivaroxaban 20 mg tablet (Xarelto) See Rx Instructions .Route .COMPLEX #28 TABLETS 08/03/21 [Rx Last Taken Unknown] digoxin 250 mcg (0.25 mg) tablet See Rx Instructions .Route .COMPLEX #28 tabs 10/26/21 [Rx Last Taken Unknown] lisinopril 2.5 mg tablet See Rx Instructions .Route .COMPLEX #56 tabs 10/26/21 [Rx Last Taken Unknown] ondansetron 4 mg disintegrating tablet 4 mg PO Q8H PRN nausea and vomiting #10 tabs 12/27/21 [Rx Last Taken Unknown] Allergy/AdvReac Type Severity Reaction Status Date / Time infliximab [From Remicade] Allergy Unknown Verified 12/27/21 17:36 Family History Unknown No problems noted. Surgical History Biventricular implantable cardioverter-defibrillator (ICD) in situ History of ileostomy Social History Smoking Status: Never smoker alcohol intake: never substance use type: does not use caffeine: Yes Type: tea what type of physical activity do you participate in: none seatbelt use: always do you feel safe at home: Yes ROS ROS ED Constitutional Constitutional ED: Reports chills and fever(s) ENT ENT ED: Denies rhinorrhea or sore throat Cardiovascular Cardiovascular: Denies chest pain or palpitations Respiratory/Chest Respiratory/Chest: Reports cough; Denies dyspnea Gastrointestinal Gastrointestinal: Reports abdominal pain, nausea, vomiting and other Details: Increased ostomy output. No black or bloody stools Genitourinary Genitourinary ED: Denies dysuria or hematuria Musculoskeletal Musculoskeletal: Reports myalgias Integumentary Denies abscess or Abrasions Neurologic Neurologic: Reports headache(s); Denies paresthesias or weakness Psychiatric Psychiatric: Denies anxiety or depression EXAM Physical Exam Const Vital Signs: 12/27/21 17:33 12/27/21 19:45 Temperature 100.8 F H 101.4 F H Temperature Source Temporal Oral Pulse Rate 106 H 97 Respiratory Rate 15 18 Blood Pressure 127/69 H 105/65 Blood Pressure Mean 88 78 Pulse Ox 98 98 Oxygen Delivery Method Room Air Room Air Positive well nourished General Appearance ED: NAD; Negative for pallor HEENT Reports dry mucous membranes normocephalic and atraumatic Face and Sinus: normal facial exam and sinuses nontender Nose: external nose normal, nares normal and nasal mucous membranes and turbinates normal Tympanic Membrane ED: Yes TM's normal bilaterally Mouth ED: Yes lips normal, Yes tongue normal, Yes salivary gland normal, Yes dry mucous membranes, No drooling, No muffled voice and No trismus Mouth: lips normal, tongue normal, salivary gland normal, dry mucous membranes, No drooling, No muffled voice and No trismus Teeth and Gingiva: caries, teeth discoloration and other Other Details: No dental percussion tenderness. Throat: posterior oropharynx normal, tonsils normal and uvula midline Neck no lymphadenopathy Resp normal respiratory effort and clear to auscultation bilaterally Auscultation: Negative for rales, rhonchi or wheezes Cardio regular rhythm Rate: tachycardic GI non-tender Palpation: soft Neuro CN's II-XII intact bilaterally, moves all extremities and no sensory deficits noted Sensorium / Orientation: alert, oriented to person, oriented to place and oriented to time Motor Exam: strength 5/5 throughout Psych mental status grossly normal and thought process normal Skin no wounds General Skin Exam: Negative for jaundice or pallor MDM MDM MDM Narrative Medical decision making narrative: Patient presenting with nausea and vomiting as well as a fever. An IV was established he was given a liter of IV fluids. Zofran was also given. Patient given a gram of Tylenol for his fever. Although patient complained of some abdominal discomfort his abdominal exam is benign. I suspect this is from vomiting. Although he was given Augmentin for a dental infection based on his exam I do not think he has 1. He does not have any teeth here. He has no facial asymmetry. I did not find any source of infection inside of his mouth. I counseled his caregiver not to give him any more of the Augmentin. CBC shows a white blood cell count of 5.2. Hemoglobin stable at 12.1. Platelets normal at 163. Renal function electrolytes are normal. There is a slight elevation of AST at 42 and ALT at 63 otherwise his LFTs are unremarkable. Chest x-ray my interpretation shows no acute cardiopulmonary process and the radiologist does agree. Rapid COVID did return positive this is likely the source of the patient's fever and feeling unwell. I do not believe he needs any imaging of his abdomen. Digoxin level is slightly low and he is counseled to make sure he is taking this on a regular basis. No follow-up with his regular physician to ensure this is therapeutic. Impression: 1. COVID-19 2. Nausea/vomiting 3. Subtherapeutic digoxin level Lab Data Attestation: I reviewed the patient's lab results. Labs: Laboratory Results - last 24 hr 12/27/21 12/27/21 12/27/21 19:10 19:10 19:10 WBC 5.2 RBC 6.30 H Hgb 12.1 L Hct 38.4 L MCV 61.0 L MCH 19.2 L MCHC 31.5 L RDW Std Deviation 33.2 L RDW Coeff of Milagros 17.6 H Plt Count 163 Immature Gran % (Auto) 1.000 H Neut % (Auto) 80.3 H Lymph % (Auto) 9.7 L [place] % (Auto) 8.4 Eos % (Auto) 0.2 Baso % (Auto) 0.4 Absolute Neuts (auto) 4.2 Absolute Lymphs (auto) 0.51 L Nucleated RBC % 0 Differential Comment SCANNED Sodium 141 Potassium 3.6 Chloride 105 Carbon Dioxide 27.0 Anion Gap 9 BUN 12 Creatinine 0.83 Estim Creat Clear Calc 85.19 Est GFR (MDRD) Af Amer 124 Est GFR (MDRD) Non-Af 103 BUN/Creatinine Ratio 14.5 Glucose 108 H Calcium 9.1 Total Bilirubin 0.30 AST 42 H ALT 63 H Alkaline Phosphatase 73 Total Protein 7.8 Albumin 3.8 Globulin 4.0 Albumin/Globulin Ratio 1.0 Digoxin 0.33 L Radiography Diagnostic Testing: Clinical Impression(s) from Imaging Studies Chest X-Ray 12/27/21 19:10 IMPRESSION: There are no acute findings. Electronically Signed: Irving Briceño MD at 19:27 EDT Reading Location ID and State: [facility] / [place] , Service support , Discharge Plan Triage Chief Complaint: Nausea/Vomiting ED Provider: Jerry Gloria Dx/Rx/DC Orders Instructions: Coronavirus Disease 2019 (COVID-19): Caring for Yourself or Others, ED Gastroenteritis, Viral (Adult) Prescriptions: New ondansetron 4 mg tablet,disintegrating 4 mg PO Q8H PRN (Reason: nausea and vomiting) Qty: 10 0RF No Action cholecalciferol (vitamin D3) 400 unit capsule 400 unit PO DAILY vitamin B complex [B Complex-Vitamin B12] Tablet 1 tab PO DAILY multivitamin with folic acid 1 TABLET tablet 1 tab PO DAILY alendronate 70 mg tablet 70 mg PO QWEEK (DME) Handicap placard Qty: 1 0RF Rx Instructions: Lifetime carvedilol 3.125 mg tablet 3.125 mg PO BID Qty: 60 11RF Xarelto 20 mg tablet See Rx Instructions .ROUTE .COMPLEX Qty: 28 11RF Dose Instruction: TAKE 1 TABLET BY MOUTH DAILY Rx Instructions: TAKE 1 TABLET BY MOUTH DAILY digoxin 250 mcg (0.25 mg) tablet See Rx Instructions .ROUTE .COMPLEX Qty: 28 11RF Dose Instruction: TAKE 1 TABLET BY MOUTH DAILY Rx Instructions: TAKE 1 TABLET BY MOUTH DAILY lisinopril 2.5 mg tablet See Rx Instructions .ROUTE .COMPLEX Qty: 56 11RF Dose Instruction: TAKE 1 TABLET BY MOUTH TWICE A DAY Rx Instructions: TAKE 1 TABLET BY MOUTH TWICE A DAY Primary Care Provider: Bunny Hendrix Referrals: Maritza Hickey MD [Med Staff - Carbonation Tester] - Activity Restrictions/Additional Instructions: Her digoxin level was low today. Make sure you are taking this as prescribed. Follow-up with your regular physician to make sure this is staying in a therapeutic range. Disposition Disposition: Home, Self Care
[2021-12-27] MEDS: 0.9% Normal Saline 1,000 ML 1000 ML IV (19:07)
[2021-12-27] MEDS: Ondansetron 4 MG/2 ML Vial IV (19:07)
[2021-12-27] MEDS: Acetaminophen 500 MG Tablet 1000 MG PO (19:07)
--- NOTE | 2021-12-27 19:10 | RAD_ITS ---
STUDY: X-RAY CHEST REASON FOR EXAM: Male, 56 years old. CHEST PAIN fever TECHNIQUE: XR Chest 1 View COMPARISON: 07/11/2017 FINDINGS: There is no demonstrated pleural abnormality. There is a left sided pacemaker batterypack. Normal size heart. Normal mediastinum and zahida. Normal visualized pulmonary arteries. Normal visualized aortic arch and descending thoracic aorta. Normal visualized thoracic spine. Normal visualized ribs, clavicles, and shoulders. There is no demonstrated abnormality of the visualized soft tissue structures of the upper abdomen. RAD/Chest 1 View (Portable) IMPRESSION: There are no acute findings. Electronically Signed: Irving Briceño MD at 19:27 EDT ,
[2021-12-27 19:21] LABS: Absolute Lymphocyte Count 0.51 X10^3/uL (0.83-4.51); Absolute Neutrophil Count 4.2 X10^3/uL (2.0-7.7); Basophil# 0.02 X10^3/uL; Basophil% 0.4 % (0-1); Differential Indicated SCAN CRITERIA MET; Eosinophil# 0.01 X10^3/uL; Eosinophils% 0.2 % (0-5); Hematocrit 38.4 % (40-54); Hemoglobin 12.1 g/dL (13.0-16.5); Lymphocyte # 0.51 X10^3/ul (0.83-4.51); Lymphocyte % 9.7 % (19-41); Mean Corp Hgb Conc 31.5 g/dL (32-36); Mean Corpuscular Hgb 19.2 pg (27.0-32.0); Monocyte# 0.44 X10^3/uL; Monocyte% 8.4 % (0-10); NRBC Flagged by Analyzer 0 % (0-5); Neutrophil # 4.21 X10^3/uL (2.7-7.7); Neutrophil % 80.3 % (47-70); POSITIVE DIFFERENTIAL YES; Platelet Count 163 K/mm3 (150-450); RBC Distribution Width CV 17.6 % (11.6-14.6); RBC Distribution Width SD 33.2 fl (35.1-43.9); White Blood Count 5.2 K/mm3 (4.4-11.0)
[2021-12-27 19:36] LABS: AST(SGOT) 42 U/L (15-37); Alanine Aminotransfer ALT/SGPT 63 U/L (16-61); Albumin, Serum 3.8 g/dL (3.2-5.0); Alkaline Phosphatase 73 U/L (45-117); Anion Gap 9 (5-15); BUN 12 mg/dL (7-18); BUN/Creat Ratio 14.5 RATIO (10-20); Calcium,Total 9.1 mg/dL (8.5-10.1); Chloride 105 mmol/L (98-107); Creatinine, Serum 0.83 mg/dL (0.70-1.30); EST Glomerular Filtration Rate 103 mL/min (>60); Est Glom Filt Rate - Afr Amer 124 mL/min (>60); Estimated Creatinine Clearance 85.19 ml/min; Glucose 108 mg/dL (74-106); Potassium 3.6 mmol/L (3.5-5.1); Protein, Total 7.8 g/dL (6.4-8.2); Sodium Level 141 mmol/L (136-145)
[2021-12-27 19:45] VITALS: BP 105/65; PULSE 97; RESP 18; TEMP 38.6; O2SAT 98
[2021-12-27 19:45] LABS: Differential Comment SCANNED
[2021-12-27 20:06] LABS: Digoxin Level 0.33 ng/mL (0.80-2.00)
--- NOTE | 2021-12-27 20:41 | ED.RN ---
had approx 500 ml of saline.
== END 2021-12-27 20:41 | disposition home or self-care (01) ==
PROVIDERS: Emergency Provider Student in an Organized Health Care Education/Training Program; PCP Family Medicine; Visit Provider Student in an Organized Health Care Education/Training Program
DX: U07.1 COVID-19 (principal); R11.2 Nausea with vomiting, unspecified; R89.2 Abnormal level of other drugs, medicaments and biological substances in specimens from other organs, systems and tissues
CPT/HCPCS: 71045; 80053; 80162; 85025; 87811; 96361; 96374; 99284; J7030; J2405

== ENCOUNTER 2021-12-29 07:08 | Emergency (ER) | payer MEDICARE, MEDICAID, SELFPAY ==
[2021-12-29 07:09] VITALS: BP 116/78; PULSE 95; RESP 17; TEMP 37.4; O2SAT 95; BMI 30.3
--- NOTE | 2021-12-29 07:23 | CT_ITS ---
EXAM: CT ABDOMEN AND PELVIS WITHOUT INTRAVENOUS CONTRAST CLINICAL INDICATION: Pain TECHNIQUE: Helically acquired images were obtained of the abdomen and pelvis without intravenous contrast. This CT exam was performed using one or more of the following dose reduction techniques: automated exposure control, adjustment of the mA and/or kV according to patient size, and/or use of iterative reconstruction technique. This report was created using [employer] report generation technology. COMPARISON: CT Abdomen Pelvis dated 06/19/2021 FINDINGS: LOWER THORAX: Stable mild cardiomegaly. ABDOMEN: LIVER: Mild to moderate diffuse hepatic steatosis again seen. GALLBLADDER AND BILE DUCTS: Normal. No calcified gallstones. No gallbladder distention or wall edema. No intra- or extrahepatic biliary ductal dilation. PANCREAS: Normal. No focal cystic mass. SPLEEN: Normal. Normal size without focal cystic or solid mass. ADRENALS: Normal. No nodules. KIDNEYS AND URETERS: Normal. No hydronephrosis. STOMACH AND BOWEL: Surgical changes of colectomy with right lower quadrant ileostomy and Schuler''s pouch. PELVIS: APPENDIX: See above. BLADDER: Normal. REPRODUCTIVE: Unremarkable as visualized. No mass. ABDOMEN and PELVIS: INTRAPERITONEAL SPACE: Normal. No ascites or other fluid collection. No free air. BONES/JOINTS: Normal. No suspicious lytic or blastic abnormality. SOFT TISSUES: Normal. No discrete abdominal or pelvic wall hernia. VASCULATURE: Normal. Abdominal aorta is non-dilated. LYMPH NODES: Normal. No enlarged lymph nodes. TUBES, LINES AND DEVICES: Cardiac pacemaker wires remain in place. CT/Abdomen/Pelvis without Cont IMPRESSION: 1. No acute abdominal or pelvic abnormality. 2. Hepatic steatosis. 3. Stable changes of colectomy with right lower quadrant ileostomy. Electronically Signed: Tapan Mancia MD at 8:14 EDT ,
--- NOTE | 2021-12-29 07:25 | EDS_ITS ---
HPI HPI - GI History of Present Illness Chief Complaint: Abd Pain Detail of Chief Complaint: Abdominal pain that is worse since last night Informant: patient Abdominal Pain/Flank Pain Maximum Severity: 9/10 Narrative Narrative: Patient presents the emergency department complaint of abdominal pain since last evening. Patient states he has had similar pain in the past for a long time. Patient also diagnosed with COVID-19 2 days ago and has had symptoms for about 4 days. Complains of a mild cough. Complains of low-grade fever. Patient has an ostomy from prior surgery due to ulcerative colitis. Patient having output from the ostomy. He has had nausea but no vomiting. He denies urinary symptoms. Patient has history of kidney stones when he was a child. Patient rates his pain a 9 out of 10. Patient states he had a hard time sleeping last night. Patient is anticoagulated with rivaroxaban due to history of A. fib. Prior similar symptoms: Yes [facility] Medical History (Updated 12/29/21 @ 09:[address] Gregory Wallace, DO) Benign hypertension Dilated cardiomyopathy History of complete heart block History of depression Hyperlipidemia Mental retardation Paroxysmal atrial fibrillation Second degree AV block, Mobitz type II Tachycardia-bradycardia syndrome Ulcerative colitis Ventricular tachycardia Home Medications multivitamin with folic acid 400 mcg tablet 1 tab PO DAILY supplement 11/09/15 [History Last Taken 06/18/21] Handicap placard #1 ea 11/01/18 [Rx Last Taken Unknown] cholecalciferol (vitamin D3) 10 mcg (400 unit) capsule 400 unit PO DAILY supplement 04/23/19 [History Last Taken 06/18/21] vitamin B complex (B Complex-Vitamin B12 tablet) 1 tab PO DAILY supplement 04/23/19 [History Last Taken 06/18/21] alendronate 70 mg tablet 70 mg PO QWEEK supplement 06/19/21 [History Last Taken Unknown] carvedilol 3.125 mg tablet 3.125 mg PO BID #60 tabs 07/07/21 [Rx Last Taken Unknown] rivaroxaban 20 mg tablet (Xarelto) See Rx Instructions .Route .COMPLEX #28 TABLETS 08/03/21 [Rx Last Taken Unknown] digoxin 250 mcg (0.25 mg) tablet See Rx Instructions .Route .COMPLEX #28 tabs 10/26/21 [Rx Last Taken Unknown] lisinopril 2.5 mg tablet See Rx Instructions .Route .COMPLEX #56 tabs 10/26/21 [Rx Last Taken Unknown] ondansetron 4 mg disintegrating tablet 4 mg PO Q8H PRN nausea and vomiting #10 tabs 12/27/21 [Rx Last Taken Unknown] hydrocodone-acetaminophen 5-325mg 5mg-325mg 1 tab PO Q4H PRN PRN Pain 2 days #10 TABLETS 12/29/21 [Rx Last Taken Unknown] Allergy/AdvReac Type Severity Reaction Status Date / Time infliximab [From Remicade] Allergy Unknown Verified 12/29/21 07:08 Family History Unknown No problems noted. Surgical History Biventricular implantable cardioverter-defibrillator (ICD) in situ History of ileostomy Social History Smoking Status: Never smoker alcohol intake: never substance use type: does not use caffeine: Yes Type: tea what type of physical activity do you participate in: none seatbelt use: always do you feel safe at home: Yes ROS ROS ED Review of Systems ROS Unobtainable: other Constitutional Constitutional ED: Reports lethargy; Denies chills, fever(s), sweats or weight loss Eyes Eyes: Denies blurry vision, change in vision or diplopia ENT ENT ED: Denies rhinorrhea or sore throat Cardiovascular Cardiovascular: Denies chest pain, orthopnea or racing heartbeat Respiratory/Chest Respiratory/Chest: Reports cough; Denies dyspnea, dyspnea on exertion, orthopnea or sputum Gastrointestinal Gastrointestinal: Reports abdominal pain and nausea; Denies diarrhea or vomiting Genitourinary Genitourinary ED: Denies dysuria, hematuria or urinary frequency Musculoskeletal Musculoskeletal: Denies arthralgias, back pain, myalgias or neck pain Integumentary Denies abscess, Abrasions or rash Neurologic Neurologic: Denies headache(s) or weakness Psychiatric Psychiatric: Denies anxiety, depression or suicidal thoughts Endocrine Endocrinology: Denies polydipsia, polyphagia or polyuria Hematologic/Lymphatic Hematologic/Lymphatic: Denies easy bleeding, easy bruising or lymphadenopathy Allergic/Immunologic Allergic/Immunologic ED: Denies mouth swelling, tongue swelling or urticaria EXAM Physical Exam Const Vital Signs: 12/29/21 07:09 Temperature 99.3 F H Temperature Source Temporal Pulse Rate 95 Respiratory Rate 17 Blood Pressure 116/78 Blood Pressure Mean 90 Pulse Ox 95 Oxygen Delivery Method Room Air Positive well nourished and well developed General Appearance ED: well developed and NAD HEENT Reports TM's clear and moist mucous membranes normocephalic and atraumatic; Negative for trauma or tenderness Tympanic Membrane ED: Yes TM's clear Eyes PERRL and EOMs intact bilaterally General Eye ED: Negative for pale conjunctiva or scleral icterus Neck no lymphadenopathy, supple and no JVD General: Negative for tenderness Chest Wall inspection of chest normal and palpation of chest normal Chest: Negative for tenderness Resp normal respiratory effort and clear to auscultation bilaterally Effort and Inspection: Negative for respiratory distress or pain with movement Auscultation: Negative for rhonchi, wheezes or diminished lung sounds Cardio regular rate, regular rhythm, S1 normal heart sound, S2 normal heart sound and no murmurs Peripheral Pulses: pulses 2+ throughout GI normal to inspection, nondistended, normoactive bowel sounds, soft to palpation, non-distended and no masses GI Narrative: Tender to palpation over the right lower quadrant and suprapubic region. Ostomy bag is in place with watery stool output that is yellow-brown in color. No peristomal hernias noted. There is no rebound, rigidity, peritoneal signs. No significant CVA tenderness on exam. Back/Spine no CVA tenderness and no thoracic nor lumbar tenderness Extremity normal to inspection General Extremety ED: Negative for edema General Extremity: Negative for edema Neuro oriented x3, CN's II-XII intact bilaterally, no sensory deficits noted and gait normal Sensorium / Orientation: awake, alert, oriented to person, oriented to place and oriented to time Motor Exam: strength 5/5 throughout and strength abnormal Psych mental status grossly normal Skin no rashes or lesions noted and no wounds MDM MDM MDM Narrative Medical decision making narrative: IV line established on arrival. Patient was medicated with morphine and Zofran. Lab work-up was essentially unremarkable. Urinalysis was normal. CT scan of the abdomen pelvis showed no acute disease process. This point etiology of his pain is unclear. I feel he safe for discharge. He will be given a prescription for few [place] for pain. He is advised to follow-up with primary care physician within next 3 to 5 days. Advised to return if worsening pain, vomiting, or condition should worsen anyway. Lab Data Attestation: I reviewed the patient's lab results. Labs: Laboratory Results - last 24 hr 12/29/21 12/29/21 12/29/21 07:32 07:32 07:32 WBC 3.5 L RBC 6.43 H Hgb 12.4 L Hct 39.8 L MCV 61.9 L MCH 19.3 L MCHC 31.2 L RDW Std Deviation 34.0 L RDW Coeff of Milagros 17.6 H Plt Count 153 Immature Gran % (Auto) 0.600 Neut % (Auto) 65.5 Lymph % (Auto) 24.1 [place] % (Auto) 9.5 Eos % (Auto) 0.0 Baso % (Auto) 0.3 Absolute Neuts (auto) 2.3 Absolute Lymphs (auto) 0.84 Nucleated RBC % 0 Sodium 139 Potassium 3.6 Chloride 103 Carbon Dioxide 27.0 Anion Gap 9 BUN 15 Creatinine 0.84 Estim Creat Clear Calc 77.64 Est GFR (MDRD) Af Amer 122 Est GFR (MDRD) Non-Af 101 BUN/Creatinine Ratio 17.8 Glucose 97 Lactic Acid 1.4 Calcium 8.8 Total Bilirubin 0.30 AST 49 H ALT 69 H Alkaline Phosphatase 75 Total Protein 8.0 Albumin 3.8 Globulin 4.2 Albumin/Globulin Ratio 0.9 Urine Color Urine Clarity Urine pH Ur Specific [place] Urine Protein Urine Glucose (UA) Urine Ketones Urine Occult Blood Urine Nitrite Urine Bilirubin Urine Urobilinogen Ur Leukocyte Esterase Urine RBC Urine WBC Ur Squamous Epith Cells Urine Bacteria Urine Mucus 12/29/21 08:00 WBC RBC Hgb Hct MCV MCH MCHC RDW Std Deviation RDW Coeff of Milagros Plt Count Immature Gran % (Auto) Neut % (Auto) Lymph % (Auto) [place] % (Auto) Eos % (Auto) Baso % (Auto) Absolute Neuts (auto) Absolute Lymphs (auto) Nucleated RBC % Sodium Potassium Chloride Carbon Dioxide Anion Gap BUN Creatinine Estim Creat Clear Calc Est GFR (MDRD) Af Amer Est GFR (MDRD) Non-Af BUN/Creatinine Ratio Glucose Lactic Acid Calcium Total Bilirubin AST ALT Alkaline Phosphatase Total Protein Albumin Globulin Albumin/Globulin Ratio Urine Color Yellow Urine Clarity Clear Urine pH 6.0 Ur Specific [place] 1.025 Urine Protein 100 H Urine Glucose (UA) Normal Urine Ketones 150 A* Urine Occult Blood 10 H Urine Nitrite Negative Urine Bilirubin Negative Urine Urobilinogen Normal Ur Leukocyte Esterase Negative Urine RBC 0 SEEN Urine WBC 0 SEEN Ur Squamous Epith Cells 0 SEEN Urine Bacteria 0 SEEN Urine Mucus 0 SEEN Radiography Diagnostic Testing: Clinical Impression(s) from Imaging Studies Abdomen/Pelvis CT 12/29/21 07:23 IMPRESSION: 1. No acute abdominal or pelvic abnormality. 2. Hepatic steatosis. 3. Stable changes of colectomy with right lower quadrant ileostomy. Electronically Signed: Tapan Mancia MD at 8:14 EDT , Discharge Plan Triage Chief Complaint: Abd Pain ED Provider: Gregory Wallace Dx/Rx/DC Orders Clinical Impression: Abdominal pain, COVID-19 Instructions: Caring for Someone Who Has COVID-19, ED Abdominal Pain Unkn Cause Male... Prescriptions: New hydrocodone-acetaminophen [hydrocodone-acetaminophen] 5-325 mg tablet 1 tab PO Q4H PRN PRN (Reason: Pain) 2 Days Qty: 10 0RF No Action cholecalciferol (vitamin D3) 400 unit capsule 400 unit PO DAILY vitamin B complex [B Complex-Vitamin B12] Tablet 1 tab PO DAILY multivitamin with folic acid 1 TABLET tablet 1 tab PO DAILY alendronate 70 mg tablet 70 mg PO QWEEK ondansetron 4 mg tablet,disintegrating 4 mg PO Q8H PRN (Reason: nausea and vomiting) Qty: 10 0RF (DME) Handicap placard Qty: 1 0RF Rx Instructions: Lifetime carvedilol 3.125 mg tablet 3.125 mg PO BID Qty: 60 11RF Xarelto 20 mg tablet See Rx Instructions .ROUTE .COMPLEX Qty: 28 11RF Dose Instruction: TAKE 1 TABLET BY MOUTH DAILY Rx Instructions: TAKE 1 TABLET BY MOUTH DAILY digoxin 250 mcg (0.25 mg) tablet See Rx Instructions .ROUTE .COMPLEX Qty: 28 11RF Dose Instruction: TAKE 1 TABLET BY MOUTH DAILY Rx Instructions: TAKE 1 TABLET BY MOUTH DAILY lisinopril 2.5 mg tablet See Rx Instructions .ROUTE .COMPLEX Qty: 56 11RF Dose Instruction: TAKE 1 TABLET BY MOUTH TWICE A DAY Rx Instructions: TAKE 1 TABLET BY MOUTH TWICE A DAY Primary Care Provider: Bunny Hendrix Referrals: Bunny Hendrix MD [Primary Care Provider] - 3-5 Days Disposition Disposition: Home, Self Care
[2021-12-29] MEDS: Morphine 4 MG/ML Syringe IV (07:31)
[2021-12-29] MEDS: Ondansetron 4 MG/2 ML Vial IV (07:31)
[2021-12-29] MEDS: 0.9% Normal Saline 1,000 ML 125 ML IV (07:31)
[2021-12-29 07:45] LABS: Absolute Lymphocyte Count 0.84 X10^3/uL (0.83-4.51); Absolute Neutrophil Count 2.3 X10^3/uL (2.0-7.7); Basophil# 0.01 X10^3/uL; Basophil% 0.3 % (0-1); Hematocrit 39.8 % (40-54); Hemoglobin 12.4 g/dL (13.0-16.5); Lymphocyte # 0.84 X10^3/ul (0.83-4.51); Lymphocyte % 24.1 % (19-41); Mean Corp Hgb Conc 31.2 g/dL (32-36); Mean Corpuscular Hgb 19.3 pg (27.0-32.0); Mean Corpuscular Volume 61.9 fL (80-94); Monocyte# 0.33 X10^3/uL; Monocyte% 9.5 % (0-10); NRBC Flagged by Analyzer 0 % (0-5); Neutrophil # 2.29 X10^3/uL (2.7-7.7); Neutrophil % 65.5 % (47-70); Platelet Count 153 K/mm3 (150-450); RBC Distribution Width CV 17.6 % (11.6-14.6); Red Blood Count 6.43 M/mm3 (4.6-6.2); White Blood Count 3.5 K/mm3 (4.4-11.0)
[2021-12-29 08:06] LABS: Bacteria 0 SEEN /hpf (None Seen); Mucous, Urine 0 SEEN /hpf (<or=2+); Red Blood Cells-Urine 0 SEEN /hpf (0-5); Squamous Epithelial Cells - UA 0 SEEN /hpf (0-5); White Blood Cells 0 SEEN /hpf (0-5)
[2021-12-29 08:10] LABS: Lactic Acid 1.4 mmol/L (0.4-1.9)
[2021-12-29 08:11] LABS: Color, Urine Yellow (Yellow); Glucose, Dipstick Normal (Normal); Leukocyte Esterase-Dipstick Negative /ul (Negative); Nitrite-Dipstick Negative (Negative); Occult Blood-Urine 10 /ul (Negative); Protein-Dipstick 100 mg/dl (Negative); Specific Gravity, Urine 1.025 (1.002-1.030); Urine Bilirubin Dipstick Negative (Negative); Urine Clarity Clear (Clear); Urine Urobilinogen Normal (Normal)
[2021-12-29 08:17] LABS: ALB/GLOB Ratio 0.9 RATIO (0.9-2.4); AST(SGOT) 49 U/L (15-37); Alanine Aminotransfer ALT/SGPT 69 U/L (16-61); Albumin, Serum 3.8 g/dL (3.2-5.0); Alkaline Phosphatase 75 U/L (45-117); Anion Gap 9 (5-15); BUN 15 mg/dL (7-18); BUN/Creat Ratio 17.8 RATIO (10-20); Calcium,Total 8.8 mg/dL (8.5-10.1); Chloride 103 mmol/L (98-107); Creatinine, Serum 0.84 mg/dL (0.70-1.30); EST Glomerular Filtration Rate 101 mL/min (>60); Est Glom Filt Rate - Afr Amer 122 mL/min (>60); Estimated Creatinine Clearance 77.64 ml/min; Globulin 4.2 g/dL (2.2-4.2); Glucose 97 mg/dL (74-106); Potassium 3.6 mmol/L (3.5-5.1); Sodium Level 139 mmol/L (136-145)
[2021-12-29 09:01] LABS: Ketone-Dipstick 150 mg/dl (Negative)
[2021-12-29 09:49] VITALS: BP 124/69; PULSE 82; RESP 16; O2SAT 95
== END 2021-12-29 09:51 | disposition home or self-care (01) ==
PROVIDERS: Emergency Provider Emergency Medicine; PCP Family Medicine; Visit Provider Emergency Medicine
DX: U07.1 COVID-19 (principal); R10.9 Unspecified abdominal pain
CPT/HCPCS: 74176; 80053; 81001; 83605; 85025; 96374; 96375; 99284; J7030; A4216; J2405

== ENCOUNTER 2022-11-20 22:11 | Emergency (ER) | payer MEDICARE, MEDICAID, SELFPAY ==
[2022-11-20 22:11] VITALS: BP 129/84; PULSE 67; RESP 16; TEMP 36.4; O2SAT 99; BMI 28.7
--- NOTE | 2022-11-20 22:27 | CT_ITS ---
EXAM: CT ABDOMEN AND PELVIS WITH INTRAVENOUS CONTRAST CLINICAL INDICATION: abd pain TECHNIQUE: Helically acquired images were obtained of the abdomen and pelvis with intravenous contrast. This CT exam was performed using one or more of the following dose reduction techniques: automated exposure control, adjustment of the mA and/or kV according to patient size, and/or use of iterative reconstruction technique. CONTRAST: IV 100mL Isovue-300 RADIATION DOSE: CTDIvol = 13.98 mGy, DLP = 757.26 mGy-cm COMPARISON: CT abdomen pelvis 12/29/2021 FINDINGS: LOWER THORAX: Unremarkable. Lung bases are clear. No cardiomegaly. No significant pericardial effusion. ABDOMEN: LIVER: Unremarkable. Homogeneous. No focal mass. GALLBLADDER AND BILE DUCTS: Unremarkable. No calcified gallstones. No gallbladder distention or wall edema. No intra- or extrahepatic biliary ductal dilation. PANCREAS: Unremarkable. No focal cystic or solid mass. SPLEEN: Unremarkable. Normal size without focal cystic or solid mass. ADRENALS: Unremarkable. No nodules. KIDNEYS AND URETERS: Small benign right renal cyst. No follow-up imaging is recommended per consensus recommendations based on imaging criteria. Normal renal size and position. No hydronephrosis. STOMACH AND BOWEL: Stable right abdominal wall ostomy with no evidence of complication. Near complete colectomy. No stomach or bowel distention. PELVIS: APPENDIX: See above. BLADDER: Unremarkable. REPRODUCTIVE: Some calcifications of the prostate. ABDOMEN and PELVIS: INTRAPERITONEAL SPACE: Unremarkable. No ascites or other fluid collection. No free air. BONES/JOINTS: Degenerative changes of the spine. No suspicious lytic or blastic abnormality. SOFT TISSUES: Unremarkable. No discrete abdominal or pelvic wall hernia. VASCULATURE: Unremarkable. Abdominal aorta is non-dilated. LYMPH NODES: Unremarkable. No enlarged lymph nodes. CT/Abdomen/Pelvis W IV Cont ONLY IMPRESSION: 1. No acute abnormalities identified in the abdomen/pelvis. 2. Stable postsurgical changes with near complete colectomy and right abdominal wall ostomy with no evidence of complication. Electronically Signed: Irving Kenny MD at 0:49 EDT ,
--- NOTE | 2022-11-20 22:30 | EX.ED.DYSGE1 ---
HPI History of Present Illness Chief Complaint: Abd Pain Narrative Narrative: Patient is a 56-year-old male with past medical history of hypertension hyperlipidemia sick sinus syndrome status post ICD pacemaker and history of colitis requiring colectomy. Patient states that beginning Sunday he experienced bouts of generalized abdominal discomfort with bouts of nausea and vomiting. He states whenever he eats and drinks he has difficulty holding the food or fluid down. He denies any known sick contacts. He denies any fevers associated with this. He states however that his symptoms have persisted for the past 5 to 6 days he is concerned for dehydration and therefore comes in for evaluation. [facility] Medical History Benign hypertension Dilated cardiomyopathy Essential hypertension History of complete heart block History of depression Hyperlipidemia Mental retardation Paroxysmal atrial fibrillation Second degree AV block, Mobitz type II Tachycardia-bradycardia syndrome Ulcerative colitis Ventricular tachycardia Home Medications multivitamin with folic acid 400 mcg tablet 1 tab PO DAILY supplement 11/09/15 [History Last Taken 06/18/21] Handicap placard #1 ea 11/01/18 [Rx Last Taken Unknown] cholecalciferol (vitamin D3) 10 mcg (400 unit) capsule 400 unit PO DAILY supplement 04/23/19 [History Last Taken 06/18/21] vitamin B complex (B Complex-Vitamin B12 tablet) 1 tab PO DAILY supplement 04/23/19 [History Last Taken 06/18/21] carvedilol 3.125 mg tablet 3.125 mg PO BID #180 tabs 06/08/22 [Rx Last Taken Unknown] rivaroxaban 20 mg tablet (Xarelto) See Rx Instructions .Route .COMPLEX #30 TABLETS 07/07/22 [Rx Last Taken Unknown] digoxin 250 mcg (0.25 mg) tablet See Rx Instructions .Route .COMPLEX #28 tabs 09/25/22 [Rx Last Taken Unknown] lisinopril 2.5 mg tablet See Rx Instructions .Route .COMPLEX #56 tabs 09/25/22 [Rx Last Taken Unknown] ondansetron 4 mg disintegrating tablet 4 mg PO TID PRN nausea and vomiting #21 tabs 11/21/22 [Rx Last Taken Unknown] oxycodone-acetaminophen 5 mg-325 mg tablet (Percocet) 1 tab PO Q6H PRN pain 3 days #12 tabs 11/21/22 [Rx Last Taken Unknown] Allergy/AdvReac Type Severity Reaction Status Date / Time infliximab [From Remicade] Allergy Unknown Verified 11/20/22 22:12 Family History Unknown No problems noted. Surgical History Biventricular implantable cardioverter-defibrillator (ICD) in situ History of ileostomy Social History Smoking Status: Never smoker alcohol intake: never substance use type: does not use caffeine: Yes Type: tea what type of physical activity do you participate in: none seatbelt use: always do you feel safe at home: Yes ROS ROS ED Constitutional Constitutional ED: Denies chills or fever(s) ENT ENT ED: Denies sore throat Cardiovascular Cardiovascular: Denies chest pain Respiratory/Chest Respiratory/Chest: Denies cough or dyspnea Gastrointestinal Gastrointestinal: Reports abdominal pain, nausea and vomiting; Denies diarrhea Genitourinary Genitourinary ED: Denies dysuria Musculoskeletal Musculoskeletal: Denies myalgias Integumentary Denies rash Neurologic Neurologic: Denies headache(s) Hematologic/Lymphatic Hematologic/Lymphatic: Denies easy bleeding or easy bruising EXAM Physical Exam Const Vital Signs: 11/20/22 22:11 11/21/22 01:38 Temperature 97.5 F L Temperature Source Temporal Pulse Rate 67 74 Respiratory Rate 16 18 Blood Pressure 129/84 H Blood Pressure Mean 99 Pulse Ox 99 96 Oxygen Delivery Method Room Air Positive well nourished and well developed General Appearance ED: well developed HEENT Reports dry mucous membranes HEENT Narrative: Mucous membranes are dry and tacky without secondary changes to suggest infection Mouth ED: Yes dry mucous membranes Mouth: dry mucous membranes Eyes PERRL and EOMs intact bilaterally General Eye ED: Negative for scleral icterus Neck supple Resp normal respiratory effort and clear to auscultation bilaterally Cardio regular rate and regular rhythm GI non-distended GI Narrative: Abdomen is soft and nondistended with hyperactive bowel sounds. Patient has a colostomy present in the right lower quadrant draining a combination of soft and liquidy stool. There is mild diffuse pain with palpation without voluntary guarding or rigidity. No pulsatile mass or fluid wave. Auscultation: hyperactive bowel sounds Palpation: soft Extremity normal to inspection Neuro oriented x3 and CN's II-XII intact bilaterally Sensorium / Orientation: alert Psych mental status grossly normal Skin no rashes or lesions noted Skin Narrative: Skin turgor is increased General Skin Exam: Negative for jaundice MDM MDM MDM Narrative Medical decision making narrative: Patient presented to the ER with stable vitals and a soft nonsurgical abdomen but with history of previous colitis requiring colectomy and the fact he is not on immunosuppressive therapy I did elect to perform basic labs and a CT scan. Differential diagnosis includes a colitis flare versus small bowel obstruction versus dehydration versus acute kidney injury versus digoxin toxicity versus gastroenteritis. Labs revealed slight elevation to his white count as well as lipase but otherwise no signs of acute kidney injury or electrolyte derangement. CT scan showed no signs of obstruction perforation acute pancreatitis or overt colitis. Therefore this time after patient has been given 1 L of IV fluids to replenish his dehydration and pain control I do not believe there is need for admission to the hospital as he does not have signs of acute kidney injury acute pancreatitis on CT scan or signs of a colon perforation or obstruction History & Record Review Discussion w/independent historian: Patient Lab Data Attestation: I reviewed the patient's lab results. Labs: Laboratory Results - last 24 hr 11/20/22 22:48 WBC 12.1 H RBC 7.32 H Hgb 13.9 Hct 45.6 MCV 62.3 L MCH 19.0 L MCHC 30.5 L RDW Std Deviation 32.0 L RDW Coeff of Milagros 17.5 H Plt Count 240 MPV TNP Immature Gran % (Auto) 0.500 Neut % (Auto) 70.3 H Lymph % (Auto) 17.0 L [place] % (Auto) 7.7 Eos % (Auto) 4.0 Baso % (Auto) 0.5 Absolute Neuts (auto) 8.5 H Absolute Lymphs (auto) 2.06 Nucleated RBC % 0 Sodium 134 L Potassium 3.9 Chloride 102 Carbon Dioxide 23.0 Anion Gap 9 BUN 26 H Creatinine 1.21 Estim Creat Clear Calc 53.90 Est GFR (MDRD) Af Amer 80 Est GFR (MDRD) Non-Af 66 BUN/Creatinine Ratio 21.5 H Glucose 118 H Lactic Acid 2.0 Calcium 9.5 Magnesium 2.3 Total Bilirubin 0.50 Direct Bilirubin 0.18 AST 16 ALT 31 Alkaline Phosphatase 76 Total Protein 8.4 H Albumin 4.2 Globulin 4.2 Lipase 167 H Digoxin 0.33 L Radiography Diagnostic Testing: Clinical Impression(s) from Imaging Studies Abdomen/Pelvis CT 11/20/22 22:27 IMPRESSION: 1. No acute abnormalities identified in the abdomen/pelvis. 2. Stable postsurgical changes with near complete colectomy and right abdominal wall ostomy with no evidence of complication. Electronically Signed: Irving Kenny MD at 0:49 EDT , Discharge Plan Triage Chief Complaint: Abd Pain ED Provider: Vazquez Santana Dx/Rx/DC Orders Clinical Impression: Nonspecific abdominal pain, Mild dehydration, Nausea & vomiting, Essential hypertension, Biventricular implantable cardioverter-defibrillator (ICD) in situ Instructions: Abdominal Pain, ED Gastroenteritis, Viral (Adult) Prescriptions: New oxycodone-acetaminophen [Percocet] 5-325 mg tablet 1 tab PO Q6H PRN (Reason: pain) 3 Days Qty: 12 0RF ondansetron 4 mg tablet,disintegrating 4 mg PO TID PRN (Reason: nausea and vomiting) Qty: 21 0RF No Action cholecalciferol (vitamin D3) 400 unit capsule 400 unit PO DAILY vitamin B complex [B Complex-Vitamin B12] Tablet 1 tab PO DAILY multivitamin with folic acid 1 TABLET tablet 1 tab PO DAILY (DME) Handicap placard Qty: 1 0RF Rx Instructions: Lifetime carvedilol 3.125 mg tablet 3.125 mg PO BID Qty: 180 3RF Xarelto 20 mg tablet See Rx Instructions .ROUTE .COMPLEX Qty: 30 11RF Dose Instruction: TAKE 1 TABLET BY MOUTH DAILY Rx Instructions: TAKE 1 TABLET BY MOUTH DAILY lisinopril 2.5 mg tablet See Rx Instructions .ROUTE .COMPLEX Qty: 56 11RF Dose Instruction: TAKE 1 TABLET BY MOUTH TWICE A DAY Rx Instructions: TAKE 1 TABLET BY MOUTH TWICE A DAY digoxin 250 mcg (0.25 mg) tablet See Rx Instructions .ROUTE .COMPLEX Qty: 28 11RF Dose Instruction: TAKE 1 TABLET BY MOUTH DAILY Rx Instructions: TAKE 1 TABLET BY MOUTH DAILY Primary Care Provider: Bunny Hendrix Referrals: Bunny Hendrix MD [Primary Care Provider] - Disposition Disposition: Home, Self Care Discharge Date/Time: 11/21/22 01:39
[2022-11-20] MEDS: 0.9% Normal Saline 1,000 ML 999 ML IV (22:44)
[2022-11-20] MEDS: Morphine 4 MG/ML Syringe IV (22:45)
[2022-11-20] MEDS: Ondansetron 4 MG/2 ML Vial IV (22:45)
[2022-11-20 23:05] LABS: Absolute Lymphocyte Count 2.06 X10^3/uL (0.83-4.51); Absolute Neutrophil Count 8.5 X10^3/uL (2.0-7.7); Basophil# 0.06 X10^3/uL; Basophil% 0.5 % (0-1); Eosinophil# 0.49 X10^3/uL; Hematocrit 45.6 % (40-54); Hemoglobin 13.9 g/dL (13.0-16.5); Lymphocyte # 2.06 X10^3/ul (0.83-4.51); Mean Corp Hgb Conc 30.5 g/dL (32-36); Mean Corpuscular Volume 62.3 fL (80-94); Monocyte# 0.93 X10^3/uL; Monocyte% 7.7 % (0-10); NRBC Flagged by Analyzer 0 % (0-5); Neutrophil # 8.52 X10^3/uL (2.7-7.7); Neutrophil % 70.3 % (47-70); Platelet Count 240 K/mm3 (150-450); RBC Distribution Width CV 17.5 % (11.6-14.6); Red Blood Count 7.32 M/mm3 (4.6-6.2); White Blood Count 12.1 K/mm3 (4.4-11.0)
[2022-11-20 23:07] LABS: POSITIVE COUNT NO; POSITIVE DIFFERENTIAL NO; POSITIVE MORPHOLOGY NO
[2022-11-20 23:16] LABS: AST(SGOT) 16 U/L (15-37); Alanine Aminotransfer ALT/SGPT 31 U/L (16-61); Albumin, Serum 4.2 g/dL (3.2-5.0); Alkaline Phosphatase 76 U/L (45-117); Anion Gap 9 (5-15); BUN 26 mg/dL (7-18); BUN/Creat Ratio 21.5 RATIO (10-20); Bilirubin, Direct 0.18 mg/dL (0.00-0.30); Calcium,Total 9.5 mg/dL (8.5-10.1); Chloride 102 mmol/L (98-107); Creatinine, Serum 1.21 mg/dL (0.70-1.30); EST Glomerular Filtration Rate 66 mL/min (>60); Est Glom Filt Rate - Afr Amer 80 mL/min (>60); Globulin 4.2 g/dL (2.2-4.2); Glucose 118 mg/dL (74-106); Lipase 167 U/L (13-75); Magnesium 2.3 mg/dL (1.6-2.6); Potassium 3.9 mmol/L (3.5-5.1); Protein, Total 8.4 g/dL (6.4-8.2); Sodium Level 134 mmol/L (136-145)
[2022-11-20 23:34] LABS: Digoxin Level 0.33 ng/mL (0.80-2.00)
[2022-11-20] MEDS: HYDROmorphone 0.5 MG/0.5 ML SYRINGE IV (23:53)
[2022-11-21 01:38] VITALS: PULSE 74; RESP 18; O2SAT 96
[2022-11-21 02:54] LABS: Reflex Lactate? Y
== END 2022-11-21 01:39 | disposition home or self-care (01) ==
PROVIDERS: Emergency Provider Emergency Medicine; PCP Family Medicine; Visit Provider Emergency Medicine
DX: R10.9 Unspecified abdominal pain (principal); E86.0 Dehydration; R11.2 Nausea with vomiting, unspecified; I10 Essential (primary) hypertension; Z95.810 Presence of automatic (implantable) cardiac defibrillator
CPT/HCPCS: 74177; 80048; 80076; 80162; 83605; 83690; 83735; 85025; 96361; 96374; 96375; 99283; J7030; Q9967; A4216; J2405

== ENCOUNTER 2022-12-10 17:17 | Emergency (ER) | payer MEDICARE, MEDICAID, SELFPAY ==
[2022-12-10 17:17] VITALS: BP 137/83; PULSE 92; RESP 16; TEMP 36.1; O2SAT 98; BMI 25.4
--- NOTE | 2022-12-10 17:34 | EKG12_ITS ---
Test Reason : CP Blood Pressure : / mmHG Vent. Rate : 077 BPM Atrial Rate : 077 BPM P-R Int : 144 ms QRS Dur : 146 ms QT Int : 426 ms P-R-T Axes : 065 -80 080 degrees QTc Int : 482 ms Atrial-sensed ventricular-paced rhythm Biventricular pacemaker detected Abnormal ECG Confirmed by AYANNA VARGAS, JERRY ([id number]), deputy editor in chief JEANETTE TRIANA ([id number]) on 01/19/2023 12:50:37 PM Referred By: CLADUIA Confirmed By:FREYA URENA MD
[2022-12-10 17:35] LABS: Absolute Lymphocyte Count 1.58 X10^3/uL (0.83-4.51); Absolute Neutrophil Count 6.4 X10^3/uL (2.0-7.7); Basophil# 0.05 X10^3/uL; Basophil% 0.5 % (0-1); Eosinophil# 0.91 X10^3/uL; Eosinophils% 9.5 % (0-5); Hematocrit 39.4 % (40-54); Hemoglobin 11.9 g/dL (13.0-16.5); Lymphocyte # 1.58 X10^3/ul (0.83-4.51); Lymphocyte % 16.5 % (19-41); Mean Corp Hgb Conc 30.2 g/dL (32-36); Mean Corpuscular Hgb 18.9 pg (27.0-32.0); Mean Corpuscular Volume 62.6 fL (80-94); Mean Platelet Vol. 10.3 fl (6.2-12.0); Monocyte# 0.53 X10^3/uL; Monocyte% 5.5 % (0-10); NRBC Flagged by Analyzer 0 % (0-5); Neutrophil # 6.42 X10^3/uL (2.7-7.7); Neutrophil % 67.4 % (47-70); Platelet Count 231 K/mm3 (150-450); RBC Distribution Width SD 34.3 fl (35.1-43.9); Red Blood Count 6.29 M/mm3 (4.6-6.2); White Blood Count 9.6 K/mm3 (4.4-11.0)
--- NOTE | 2022-12-10 17:38 | RAD_ITS ---
INDICATION: chest pain EXAMINATION/TECHNIQUE: X-RAY - XR Chest 1 View COMPARISON: 12/27/2021 FINDINGS: LINES/DEVICES: Stable transvenous pacemaker. LUNGS: No consolidation, edema or effusion. No pneumothorax. MEDIASTINUM AND CARDIOVASCULAR STRUCTURES: Cardiac silhouette not enlarged. Central airways and mediastinal contour are unremarkable. BONES AND SOFT TISSUES: No acute changes. RAD/Chest 1 View (Portable) IMPRESSION: No radiographic evidence of acute cardiopulmonary disease. Electronically Signed: Omid Johnson MD at 18:26 EDT ,
[2022-12-10 18:00] LABS: Anion Gap 5 (5-15); BUN 12 mg/dL (7-18); BUN/Creat Ratio 16.3 RATIO (10-20); Calcium,Total 9.5 mg/dL (8.5-10.1); Chloride 106 mmol/L (98-107); Creatinine, Serum 0.74 mg/dL (0.70-1.30); EST Glomerular Filtration Rate 118 mL/min (>60); Est Glom Filt Rate - Afr Amer 142 mL/min (>60); Estimated Creatinine Clearance 95.56 ml/min; Glucose 109 mg/dL (74-106); Potassium 3.9 mmol/L (3.5-5.1); Sodium Level 138 mmol/L (136-145); Troponin-I HS (w/2H Reflex) 6 pg/mL (3.0-78.0)
--- NOTE | 2022-12-10 18:47 | EX.ED.DYSGE1 ---
HPI History of Present Illness Chief Complaint: Dizziness Narrative Narrative: 56-year-old male past medical history of MRDD, dilated cardiomyopathy, colostomy bag, and pacemaker placement/ICD presents with lightheadedness and near syncope that has had since Sunday of last week, approximately 5 days ago. He states it first happened or when he went to stand up he felt very lightheaded as if you are going to pass out. He almost fell. It happened to him again today. He denies any chest pain or shortness of breath, no recent nausea or vomiting, no diarrhea or recent dysuria or hematuria. He presents for evaluation of his near syncope. He denies any vertiginous type symptoms such as the room spinning. [facility] Medical History Benign hypertension Dilated cardiomyopathy Essential hypertension History of complete heart block History of depression Hyperlipidemia Mental retardation Paroxysmal atrial fibrillation Second degree AV block, Mobitz type II Tachycardia-bradycardia syndrome Ulcerative colitis Ventricular tachycardia Home Medications multivitamin with folic acid 400 mcg tablet 1 tab PO DAILY supplement 11/09/15 [History Last Taken 06/18/21] Handicap placard #1 ea 11/01/18 [Rx Last Taken Unknown] cholecalciferol (vitamin D3) 10 mcg (400 unit) capsule 400 unit PO DAILY supplement 04/23/19 [History Last Taken 06/18/21] vitamin B complex (B Complex-Vitamin B12 tablet) 1 tab PO DAILY supplement 04/23/19 [History Last Taken 06/18/21] carvedilol 3.125 mg tablet 3.125 mg PO BID #180 tabs 06/08/22 [Rx Last Taken Unknown] rivaroxaban 20 mg tablet (Xarelto) See Rx Instructions .Route .COMPLEX #30 TABLETS 07/07/22 [Rx Last Taken Unknown] digoxin 250 mcg (0.25 mg) tablet See Rx Instructions .Route .COMPLEX #28 tabs 09/25/22 [Rx Last Taken Unknown] lisinopril 2.5 mg tablet See Rx Instructions .Route .COMPLEX #56 tabs 09/25/22 [Rx Last Taken Unknown] ondansetron 4 mg disintegrating tablet 4 mg PO TID PRN nausea and vomiting #21 tabs 11/21/22 [Rx Last Taken Unknown] oxycodone-acetaminophen 5 mg-325 mg tablet (Percocet) 1 tab PO Q6H PRN pain 3 days #12 tabs 11/21/22 [Rx Last Taken Unknown] Allergy/AdvReac Type Severity Reaction Status Date / Time infliximab [From Remicade] Allergy Unknown Verified 11/28/22 08:59 Family History Unknown No problems noted. Surgical History Biventricular implantable cardioverter-defibrillator (ICD) in situ History of ileostomy Social History Smoking Status: Never smoker alcohol intake: never substance use type: does not use caffeine: Yes Type: tea what type of physical activity do you participate in: none seatbelt use: always do you feel safe at home: Yes ROS ROS ED ROS Narrative Constitutional: No fever, no chills. HEENT: No sore throat. No neck pain. No loss of vision. No rhinorrhea. Cardiovascular: No chest pain. No palpitations. No pedal edema. Respiratory: No cough, no shortness of breath. Abdominal: No abdominal pain. No nausea. No vomiting. Genitourinary: No dysuria. No hematuria. Musculoskeletal: No myalgias. No arthralgias. Neurologic: No headaches. No dizziness. Positive lightheadedness and near syncope. Skin: No rash. No change in color. Psychiatric: No depression. No anxiety. EXAM Physical Exam Narrative Exam Narrative: Afebrile. Vital signs noted. HEENT: Normocephalic. Atraumatic. PERRL, EOMI. Neck soft and supple. No point tenderness or step off. Cardiovascular: Regular rate and rhythm. No murmurs, rubs, or gallops appreciated. Respiratory: No tachypnea. Lungs clear to auscultation bilaterally. Gastrointestinal: Abdomen soft, nontender, with normoactive bowel sounds. No rebound or guarding. Neurological: Awake. Alert. Nonfocal, nonlateralizing. Consistent with mild MRDD. Skin: No rash. Normal color. No pallor. Musculoskeletal: No pedal edema. Full range of motion extremities. Const Vital Signs: 12/10/22 17:17 12/10/22 17:30 12/10/22 19:24 Temperature 96.9 F L Temperature Source Temporal Pulse Rate 92 Respiratory Rate 16 Respiratory Effort Normal Non-Labored Respiratory Pattern Normal Blood Pressure 137/83 H Blood Pressure Mean 101 Pulse Ox 98 99 Oxygen Delivery Method Room Air Room Air 12/10/22 19:24 Temperature Temperature Source Pulse Rate 67 Respiratory Rate 14 Respiratory Effort Respiratory Pattern Blood Pressure 121/75 H Blood Pressure Mean 90 Pulse Ox 100 Oxygen Delivery Method Room Air MDM MDM MDM Narrative Medical decision making narrative: Concern would be for near syncope and dehydration. To look for cardiac cause of this given his history, nursing protocol labs and imaging were entered. I reviewed his laboratory work from today and he has normal white count of 9.6, hemoglobin slightly low at 11.9, platelet count normal at 231. EKG was obtained and interpreted by myself independently as atrial sensed ventricular paced rhythm at 77 bpm without ectopy or acute ST changes. No STEMI. Review of his electrolyte panel shows normal sodium of 138, potassium normal at 3.9, chloride normal at 106. Glucose is appropriately elevated at 109 with a normal anion gap of 5. Urinalysis is negative for for infection, negative for ketones. I do not feel antibiotics are indicated. Initial high-sensitivity troponin is 6 with 2-hour troponin normal at 7. Chest x-ray in 1 view interpreted by myself independently shows no acute process, no pneumonia or pneumothorax. I reviewed the radiology report which confirms my independent interpretation. At this point in time, I feel he can be discharged safely home with follow-up to his primary care provider. He was bolused normal saline 1 L intravenously in the event that he had intravascular volume depletion as a cause of his near syncope. I do not feel he requires observation at this time. Return instructions to the emergency department were reviewed. Disposition is discharged home in stable condition. History & Record Review Discussion w/independent historian: Patient Additional record(s) reviewed:: Prior ED visit and Prior labs Lab Data Attestation: I reviewed the patient's lab results. Labs: Laboratory Results - last 24 hr 12/10/22 12/10/22 12/10/22 17:26 19:20 20:10 WBC 9.6 RBC 6.29 H Hgb 11.9 L Hct 39.4 L MCV 62.6 L MCH 18.9 L MCHC 30.2 L RDW Std Deviation 34.3 L RDW Coeff of Milagros 18.0 H Plt Count 231 MPV 10.3 Immature Gran % (Auto) 0.600 Neut % (Auto) 67.4 Lymph % (Auto) 16.5 L [place] % (Auto) 5.5 Eos % (Auto) 9.5 H Baso % (Auto) 0.5 Absolute Neuts (auto) 6.4 Absolute Lymphs (auto) 1.58 Nucleated RBC % 0 Sodium 138 Potassium 3.9 Chloride 106 Carbon Dioxide 27.0 Anion Gap 5 BUN 12 Creatinine 0.74 Estim Creat Clear Calc 95.56 Est GFR (MDRD) Af Amer 142 Est GFR (MDRD) Non-Af 118 BUN/Creatinine Ratio 16.3 Glucose 109 H Calcium 9.5 Troponin I High Sens 6 7 Urine Color Yellow Urine Clarity Clear Urine pH 6.0 Ur Specific Needles 1.020 Urine Protein 15 H Urine Glucose (UA) Normal Urine Ketones Negative Urine Occult Blood Negative Urine Nitrite Negative Urine Bilirubin Negative Urine Urobilinogen Normal Ur Leukocyte Esterase Negative Urine RBC 0 SEEN Urine WBC 0-5 SEEN Ur Squamous Epith Cells 0 SEEN Urine Bacteria 0 SEEN Urine Mucus 0 SEEN Radiography Diagnostic Testing: Clinical Impression(s) from Imaging Studies Chest X-Ray 12/10/22 17:38 IMPRESSION: No radiographic evidence of acute cardiopulmonary disease. Electronically Signed: Omid Johnson MD at 18:26 EDT Reading Location ID and State: [facility] / [place] Tel , Service support , Discharge Plan Triage Chief Complaint: Dizziness ED Provider: Jaiden Gallo Dx/Rx/DC Orders Clinical Impression: Lightheaded, Near syncope, Chest pain Instructions: ED Chest Pain, Uncertain Cause, ED Near-Fainting, Uncertain Cause Prescriptions: No Action cholecalciferol (vitamin D3) 400 unit capsule 400 unit PO DAILY vitamin B complex [B Complex-Vitamin B12] Tablet 1 tab PO DAILY multivitamin with folic acid 1 TABLET tablet 1 tab PO DAILY oxycodone-acetaminophen [Percocet] 5-325 mg tablet 1 tab PO Q6H PRN (Reason: pain) 3 Days Qty: 12 0RF ondansetron 4 mg tablet,disintegrating 4 mg PO TID PRN (Reason: nausea and vomiting) Qty: 21 0RF (DME) Handicap placard Qty: 1 0RF Rx Instructions: Lifetime carvedilol 3.125 mg tablet 3.125 mg PO BID Qty: 180 3RF Xarelto 20 mg tablet See Rx Instructions .ROUTE .COMPLEX Qty: 30 11RF Dose Instruction: TAKE 1 TABLET BY MOUTH DAILY Rx Instructions: TAKE 1 TABLET BY MOUTH DAILY lisinopril 2.5 mg tablet See Rx Instructions .ROUTE .COMPLEX Qty: 56 11RF Dose Instruction: TAKE 1 TABLET BY MOUTH TWICE A DAY Rx Instructions: TAKE 1 TABLET BY MOUTH TWICE A DAY digoxin 250 mcg (0.25 mg) tablet See Rx Instructions .ROUTE .COMPLEX Qty: 28 11RF Dose Instruction: TAKE 1 TABLET BY MOUTH DAILY Rx Instructions: TAKE 1 TABLET BY MOUTH DAILY Primary Care Provider: Bunny Hendrix Referrals: Bunny Hendrix MD [Primary Care Provider] - 3-5 Days if not improving Disposition Disposition: Home, Self Care
[2022-12-10] MEDS: 0.9% Normal Saline 1,000 ML 999 ML IV (19:22)
[2022-12-10 19:24] VITALS: BP 121/75; PULSE 67; RESP 14; O2SAT 100; O2SAT 99
[2022-12-10 19:29] LABS: Bacteria 0 SEEN /hpf (None Seen); Mucous, Urine 0 SEEN /hpf (<or=2+); Red Blood Cells-Urine 0 SEEN /hpf (0-5); Squamous Epithelial Cells - UA 0 SEEN /hpf (0-5)
[2022-12-10 19:31] LABS: Reflex Troponin-HS? (from REC) Y
[2022-12-10 19:37] LABS: Color, Urine Yellow (Yellow); Glucose, Dipstick Normal (Normal); Ketone-Dipstick Negative (Negative); Leukocyte Esterase-Dipstick Negative /ul (Negative); Nitrite-Dipstick Negative (Negative); Occult Blood-Urine Negative /ul (Negative); Protein-Dipstick 15 mg/dl (Negative); Urine Bilirubin Dipstick Negative (Negative); Urine Clarity Clear (Clear); Urine Urobilinogen Normal (Normal)
[2022-12-10 19:55] LABS: White Blood Cells 0-5 SEEN /hpf (0-5)
[2022-12-10 20:45] LABS: Troponin-I HS 7 pg/mL (3.0-78.0)
[2022-12-10 20:57] VITALS: BP 115/68; PULSE 67; RESP 17; O2SAT 98
[2022-12-10 21:03] VITALS: TEMP 36.7
== END 2022-12-10 21:03 | disposition home or self-care (01) ==
PROVIDERS: Emergency Provider Emergency Medicine; PCP Family Medicine; Visit Provider Emergency Medicine
DX: R42 Dizziness and giddiness (principal); I42.0 Dilated cardiomyopathy; R07.9 Chest pain, unspecified; Z95.0 Presence of cardiac pacemaker
CPT/HCPCS: 71045; 80048; 81001; 84484; 85025; 93005; 99284; J7030; A4216

== ENCOUNTER 2022-12-14 17:35 | Emergency (ER) | payer MEDICARE, MEDICAID, SELFPAY ==
[2022-12-14 17:35] VITALS: BP 141/82; PULSE 97; RESP 18; TEMP 36.1; O2SAT 99; BMI 28.0
--- NOTE | 2022-12-14 19:26 | EDS_ITS ---
HPI History of Present Illness Chief Complaint: General Illness [facility] Medical History Benign hypertension Dilated cardiomyopathy Essential hypertension History of complete heart block History of depression Hyperlipidemia Mental retardation Paroxysmal atrial fibrillation Second degree AV block, Mobitz type II Tachycardia-bradycardia syndrome Ulcerative colitis Ventricular tachycardia Home Medications multivitamin with folic acid 400 mcg tablet 1 tab PO DAILY supplement 11/09/15 [History Last Taken 06/18/21] Handicap placard #1 ea 11/01/18 [Rx Last Taken Unknown] cholecalciferol (vitamin D3) 10 mcg (400 unit) capsule 400 unit PO DAILY supplement 04/23/19 [History Last Taken 06/18/21] vitamin B complex (B Complex-Vitamin B12 tablet) 1 tab PO DAILY supplement 04/23/19 [History Last Taken 06/18/21] carvedilol 3.125 mg tablet 3.125 mg PO BID #180 tabs 06/08/22 [Rx Last Taken Unknown] rivaroxaban 20 mg tablet (Xarelto) See Rx Instructions .Route .COMPLEX #30 TABLETS 07/07/22 [Rx Last Taken Unknown] digoxin 250 mcg (0.25 mg) tablet See Rx Instructions .Route .COMPLEX #28 tabs 09/25/22 [Rx Last Taken Unknown] lisinopril 2.5 mg tablet See Rx Instructions .Route .COMPLEX #56 tabs 09/25/22 [Rx Last Taken Unknown] ondansetron 4 mg disintegrating tablet 4 mg PO TID PRN nausea and vomiting #21 tabs 11/21/22 [Rx Last Taken Unknown] oxycodone-acetaminophen 5 mg-325 mg tablet (Percocet) 1 tab PO Q6H PRN pain 3 days #12 tabs 11/21/22 [Rx Last Taken Unknown] carvedilol 3.125 mg tablet 3.125 mg PO BID #60 tabs 12/14/22 [Rx Last Taken Unknown] digoxin 250 mcg (0.25 mg) tablet 250 mcg PO DAILY #30 tabs 12/14/22 [Rx Last Taken Unknown] rivaroxaban 20 mg tablet (Xarelto) 20 mg PO DAILY #30 tabs 12/14/22 [Rx Last Taken Unknown] Allergy/AdvReac Type Severity Reaction Status Date / Time infliximab [From Remicade] Allergy Unknown Verified 12/14/22 19:18 Family History Unknown No problems noted. Surgical History Biventricular implantable cardioverter-defibrillator (ICD) in situ History of ileostomy Social History Smoking Status: Never smoker alcohol intake: never substance use type: does not use caffeine: Yes Type: tea what type of physical activity do you participate in: none seatbelt use: always do you feel safe at home: Yes EXAM Physical Exam Const Vital Signs: 12/14/22 17:35 12/14/22 19:18 12/14/22 20:04 Temperature 97 F L Temperature Source Temporal Pulse Rate 97 81 Respiratory Rate 18 17 Respiratory Effort Normal Non-Labored Respiratory Pattern Normal Blood Pressure 141/82 H 125/81 H Blood Pressure Mean 101 95 Pulse Ox 99 96 Oxygen Delivery Method Room Air 12/14/22 21:30 12/14/22 22:10 Temperature Temperature Source Pulse Rate 72 Respiratory Rate 18 18 Respiratory Effort Respiratory Pattern Blood Pressure 150/84 H Blood Pressure Mean Pulse Ox 99 Oxygen Delivery Method Room Air MDM MDM MDM Narrative Medical decision making narrative: ED attending note: I evaluated the patient in conjunction with the HUYEN. I agree with his/her statements and above findings. I have personally performed a face to face assessment of the patient and have reviewed the HUYEN Note. I performed a substantive portion of the visit including all aspects of the following. I personally saw the patient performed chart review, physical exam, reviewed labs, imaging (if obtained), and formulated a treatment and management plan. Brief history: Patient here with no complaints concern for being kicked out of his apartment. Exam: Nursing triage notes reviewed, Vital signs reviewed Constitutional: please see mdm HENT: MMM Eyes: Pupils equal round and reactive to light, Extraocular muscles intact Neck: No stridor, no JVD, full neck ROM Lungs: Clear to auscultation, No wheezing or rales. No increased work of breathing, no conversational dyspnea, no accessory muscle use, no nasal flaring. No respiratory distress noted Heart: Regular rate and rhythm, No murmurs, No rubs and No gallops, 2+ distal pulses (radial, femoral, posterior tibial) in all extremities Abdomen: Soft, there is no tenderness, rigidity, rebound or guarding, no obvious peritoneal signs, no palpable pulsatile abdominal masses, no auscultated abdominal bruit : No CVAT Extremities: No edema Neuro: Alert and orient x3, capacity to make his own medical decisions, no focal neurological deficits, cranial nerves II through XII intact, 5/5 strength in all extremities. Intact sensation to light touch in all extremities, 2+ reflexes bilateral patella dens. Normal gait. No ataxia. Skin: No rash or lesions noted MDM/plan: Chief Complaint: Concern for being homeless External records reviewed: Prior ED visit reviewed. Patient a negative cardiac work-up at this time. Factors affecting care: MRDD, Mobitz type II, hypertension, dilated, apathy, paroxysmal atrial fibrillation, Social determinants of health: [MRDD History obtained from others: Concern status and MDM narrative: Patient initially hemodynamically stable, afebrile, nontoxic-appearing. Cardiopulmonary exam unremarkable. Patient no focal deficits. He had no complaints. Patient not meet criteria for inpatient mission at this time. Patient had outpatient resources including a shelter case manager, has an income provided by the [employer] and [employer]. Has a car. Access to cell phone communication. He was discharged stable condition with instruction to return if symptoms developed. Shared decision making: I will have a discussion with the patient and or visitors regarding risk/be nefits of further testing or admission. They will be made aware of of the risk/benefits inherent in this decision they will be given the opportunity to voice understanding. Consults: Social work Discharge Plan Triage Chief Complaint: General Illness Other Complaint: Well Child Check ED Midlevel Provider: Ace Redman ED Provider: Shawn Phan Dx/Rx/DC Orders Clinical Impression: Anxiety, Homeless Instructions: ED Anxiety Reaction Prescriptions: New carvedilol 3.125 mg tablet 3.125 mg PO BID Qty: 60 0RF Rx Instructions: must administer with a meal/food digoxin 250 mcg (0.25 mg) tablet 250 mcg PO DAILY Qty: 30 0RF Xarelto 20 mg tablet 20 mg PO DAILY Qty: 30 0RF Rx Instructions: must administer with evening meal No Action cholecalciferol (vitamin D3) 400 unit capsule 400 unit PO DAILY vitamin B complex [B Complex-Vitamin B12] Tablet 1 tab PO DAILY multivitamin with folic acid 1 TABLET tablet 1 tab PO DAILY oxycodone-acetaminophen [Percocet] 5-325 mg tablet 1 tab PO Q6H PRN (Reason: pain) 3 Days Qty: 12 0RF ondansetron 4 mg tablet,disintegrating 4 mg PO TID PRN (Reason: nausea and vomiting) Qty: 21 0RF (DME) Handicap placard Qty: 1 0RF Rx Instructions: Lifetime carvedilol 3.125 mg tablet 3.125 mg PO BID Qty: 180 3RF Xarelto 20 mg tablet See Rx Instructions .ROUTE .COMPLEX Qty: 30 11RF Dose Instruction: TAKE 1 TABLET BY MOUTH DAILY Rx Instructions: TAKE 1 TABLET BY MOUTH DAILY lisinopril 2.5 mg tablet See Rx Instructions .ROUTE .COMPLEX Qty: 56 11RF Dose Instruction: TAKE 1 TABLET BY MOUTH TWICE A DAY Rx Instructions: TAKE 1 TABLET BY MOUTH TWICE A DAY digoxin 250 mcg (0.25 mg) tablet See Rx Instructions .ROUTE .COMPLEX Qty: 28 11RF Dose Instruction: TAKE 1 TABLET BY MOUTH DAILY Rx Instructions: TAKE 1 TABLET BY MOUTH DAILY Primary Care Provider: Bunny Hendrix Referrals: Bunny Hendrix MD [Primary Care Provider] - Activity Restrictions/Additional Instructions: You have multiple resources, you need to reach out tomorrow morning. Disposition Disposition: Home, Self Care Discharge Date/Time: 12/14/22 22:26
[2022-12-14 20:04] VITALS: BP 125/81; PULSE 81; RESP 17; O2SAT 96
--- NOTE | 2022-12-14 20:09 | EDS_ITS ---
HPI History of Present Illness Chief Complaint: General Illness Narrative Narrative: Patient is a 56-year-old male with history of hypertension, developmentally delayed, heart block with a pacemaker, who presents to the emergency department for a social consult. Patient recently was evicted from his home. Patient is currently in his car. He went to a free clinic across the street who told to go to the emergency department. At this time, the patient thinks that he needs to go to a fci because he has nowhere to live. Patient states he does not want to go to the [facility] because they make fun of him there. Patient denies any medical emergency or complaint at this time. Patient was seen here couple days ago for chest pain and was then discharged home. Patient denies any pain, fever chills nausea vomiting. [facility] Medical History Benign hypertension Dilated cardiomyopathy Essential hypertension History of complete heart block History of depression Hyperlipidemia Mental retardation Paroxysmal atrial fibrillation Second degree AV block, Mobitz type II Tachycardia-bradycardia syndrome Ulcerative colitis Ventricular tachycardia Home Medications multivitamin with folic acid 400 mcg tablet 1 tab PO DAILY supplement 11/09/15 [History Last Taken 06/18/21] Handicap placard #1 ea 11/01/18 [Rx Last Taken Unknown] cholecalciferol (vitamin D3) 10 mcg (400 unit) capsule 400 unit PO DAILY supplement 04/23/19 [History Last Taken 06/18/21] vitamin B complex (B Complex-Vitamin B12 tablet) 1 tab PO DAILY supplement 04/23/19 [History Last Taken 06/18/21] carvedilol 3.125 mg tablet 3.125 mg PO BID #180 tabs 06/08/22 [Rx Last Taken Unknown] rivaroxaban 20 mg tablet (Xarelto) See Rx Instructions .Route .COMPLEX #30 TABLETS 07/07/22 [Rx Last Taken Unknown] digoxin 250 mcg (0.25 mg) tablet See Rx Instructions .Route .COMPLEX #28 tabs 09/25/22 [Rx Last Taken Unknown] lisinopril 2.5 mg tablet See Rx Instructions .Route .COMPLEX #56 tabs 09/25/22 [Rx Last Taken Unknown] ondansetron 4 mg disintegrating tablet 4 mg PO TID PRN nausea and vomiting #21 tabs 11/21/22 [Rx Last Taken Unknown] oxycodone-acetaminophen 5 mg-325 mg tablet (Percocet) 1 tab PO Q6H PRN pain 3 days #12 tabs 11/21/22 [Rx Last Taken Unknown] carvedilol 3.125 mg tablet 3.125 mg PO BID #60 tabs 12/14/22 [Rx Last Taken Unknown] digoxin 250 mcg (0.25 mg) tablet 250 mcg PO DAILY #30 tabs 12/14/22 [Rx Last Taken Unknown] rivaroxaban 20 mg tablet (Xarelto) 20 mg PO DAILY #30 tabs 12/14/22 [Rx Last Taken Unknown] Allergy/AdvReac Type Severity Reaction Status Date / Time infliximab [From Remicade] Allergy Unknown Verified 12/14/22 19:18 Family History Unknown No problems noted. Surgical History Biventricular implantable cardioverter-defibrillator (ICD) in situ History of ileostomy Social History Smoking Status: Never smoker alcohol intake: never substance use type: does not use caffeine: Yes Type: tea what type of physical activity do you participate in: none seatbelt use: always do you feel safe at home: Yes ROS ROS ED ROS Narrative Constitutional: Negative for fever, chills, weight loss, weakness Eyes: Negative for vision loss, vision change, double vision ENT: Negative for any sore throat, ear pain, congestion Cardiovascular: Negative for any chest pain, tightness, palpitations Respiratory: Negative for any cough, sputum production, hemoptysis, dyspnea, dyspnea on exertion, orthopnea Gastrointestinal: Negative for any abdominal pain, nausea, vomiting, diarrhea, constipation, blood in stool, blood in vomit : Negative for any urinary frequency, dysuria, retention, blood in urine Muscle skeletal: Negative for any muscle joint pain, stiffness, myalgias, arthralgias, neck pain, back pain Neurological: Negative for any headache, syncope, numbness or tingling, dizziness Skin: Negative for any rashes, lumps, itching, abrasions, lacerations Psychiatric: Negative for any depression, stress, suicidal ideation, homicidal ideation. Patient states that he is anxious because he does not know where he is going to live Hematologic: Negative for any easy bruising, excessive bruising, easy bleeding Allergies: Negative for any eczema, hives, rash EXAM Physical Exam Narrative Exam Narrative: Vital signs reviewed. HEET: Head normocephalic atraumatic, TMs clear bilaterally. Posterior pharynx is clear, moist mucous membranes. Nares clear bilaterally. Neck: Supple with no lymphadenopathy or tenderness. No signs of meningismus, negative jolt sign. Cardiac: Regular rate and rhythm no murmurs gallops or rubs, equal peripheral pulses bilaterally. Respiratory: Lungs clear to auscultation bilaterally. No chest tenderness. Abdomen: Soft, nontender, nondistended. No abdominal bruit or pulsatile masses. No hepatosplenomegaly. Patient does have a colostomy which is chronic. Extremities: No peripheral edema, no signs of gross trauma or deformity. Active full range of motion of all extremities. Neuro: Cranial nerves II through XII intact, no focal neurological deficits. Skin: Clean dry and intact with no rash, purpura, petechiae, vesicles or pustules. Backs/flank: No CVA tenderness, no midline spinal tenderness, no deformity. Psych: Normal mood and affect. No SI, HI or acute psychosis. Const Vital Signs: 12/14/22 17:35 12/14/22 19:18 12/14/22 20:04 Temperature 97 F L Temperature Source Temporal Pulse Rate 97 81 Respiratory Rate 18 17 Respiratory Effort Normal Non-Labored Respiratory Pattern Normal Blood Pressure 141/82 H 125/81 H Blood Pressure Mean 101 95 Pulse Ox 99 96 Oxygen Delivery Method Room Air 12/14/22 21:30 12/14/22 22:10 Temperature Temperature Source Pulse Rate 72 Respiratory Rate 18 18 Respiratory Effort Respiratory Pattern Blood Pressure 150/84 H Blood Pressure Mean Pulse Ox 99 Oxygen Delivery Method Room Air Positive well nourished and well developed General Appearance ED: well developed MDM MDM Treatment and Re-Evaluation :: Patient appears generally well, patient appears nontoxic, vital signs are stable. Patient presents to the emergency department because he got kicked out of his apartment. Patient was told by his social services specialist to go to the emergency department. Patient has no medical necessity at this time. Patient has no medical complaints other than he is homeless at this time. Patient does drive and has all his belongings in his car. Patient was seen here on 10 December for some lightheadedness. Patient had a full cardiac work-up, this work-up was negative. He was then discharged home. I spoke with the patient at length that he needs a medical necessity to be admitted to the hospital. I did speak with social work, however due to the time of day, there is not much they can do at this time. Patient does have multiple resources, patient has a case liner, patient has someone that works with him locally, he can also go to the free clinic tomorrow. He has [facility] the [facility] however he does not like it there because he gets made fun of. Patient at this time will be discharged out of the emergency department. He will stay in his car, he will follow-up closely with all of his resources tomorrow morning to get placed. At this time, there is no medical necessity for patient's admission. Patient understood, and was discharged. He was instructed return here for any worsening medical process. Discharge Plan Triage Chief Complaint: General Illness Other Complaint: Well Child Check ED Midlevel Provider: Ace Redman ED Provider: Shawn Phan Dx/Rx/DC Orders Clinical Impression: Anxiety, Homeless Instructions: ED Anxiety Reaction Prescriptions: New carvedilol 3.125 mg tablet 3.125 mg PO BID Qty: 60 0RF Rx Instructions: must administer with a meal/food digoxin 250 mcg (0.25 mg) tablet 250 mcg PO DAILY Qty: 30 0RF Xarelto 20 mg tablet 20 mg PO DAILY Qty: 30 0RF Rx Instructions: must administer with evening meal No Action cholecalciferol (vitamin D3) 400 unit capsule 400 unit PO DAILY vitamin B complex [B Complex-Vitamin B12] Tablet 1 tab PO DAILY multivitamin with folic acid 1 TABLET tablet 1 tab PO DAILY oxycodone-acetaminophen [Percocet] 5-325 mg tablet 1 tab PO Q6H PRN (Reason: pain) 3 Days Qty: 12 0RF ondansetron 4 mg tablet,disintegrating 4 mg PO TID PRN (Reason: nausea and vomiting) Qty: 21 0RF (DME) Handicap placard Qty: 1 0RF Rx Instructions: Lifetime carvedilol 3.125 mg tablet 3.125 mg PO BID Qty: 180 3RF Xarelto 20 mg tablet See Rx Instructions .ROUTE .COMPLEX Qty: 30 11RF Dose Instruction: TAKE 1 TABLET BY MOUTH DAILY Rx Instructions: TAKE 1 TABLET BY MOUTH DAILY lisinopril 2.5 mg tablet See Rx Instructions .ROUTE .COMPLEX Qty: 56 11RF Dose Instruction: TAKE 1 TABLET BY MOUTH TWICE A DAY Rx Instructions: TAKE 1 TABLET BY MOUTH TWICE A DAY digoxin 250 mcg (0.25 mg) tablet See Rx Instructions .ROUTE .COMPLEX Qty: 28 11RF Dose Instruction: TAKE 1 TABLET BY MOUTH DAILY Rx Instructions: TAKE 1 TABLET BY MOUTH DAILY Primary Care Provider: Bunny Hendrix Referrals: Bunny Hendrix MD [Primary Care Provider] - Activity Restrictions/Additional Instructions: You have multiple resources, you need to reach out tomorrow morning. Disposition Disposition: Home, Self Care Discharge Date/Time: 12/14/22 22:26
--- NOTE | 2022-12-14 20:41 | CM.ED ---
Social Work SW notified via triage of patient's arrival. CM from [facility], present with patient. CM reports patient arrived at Clinic and was homeless. CM was going to take patient to [facility] but Clinic staff recommended CM bring patient to ED due to major medical concerns and indicated patient could be admitted and sent to SNF. SW explained that this would be a medical determination and there are many factors that affect admission/placement. CM reports he has many medical issues and insurance should cover. SW explained it was going to be a medical determination and not SW. CM reports patient drove and is in ED parking. CM explained patient received a 3-day notice for eviction and his possessions were thrown on the streets. CM reports pt states he has a payee but they are from [place] and he did not know their name. Pt was residing at [address] [place] [address]. CM did not know of any other services or CM that assist with patient. SW reviewed public court records out of concern because pt is claiming only to have a 3-day notice which would be unlawful. ELVIN determined patient had 3-day notice the beginning of November and was formally evicted today. In eviction record, patient's items placed outside and law enforcement advised patient to go to [facility]. Pt is DD with intellectual disability. Pt receives disability and indicated a payee. SW unsure why payee did not ensure payment or if patient is confused. ELVIN called Crisis to see if patient was active with [facility] due to [facility] assisting with payees and DD clients but patient was not active. ELVIN called the board of DD and spoke with the on-call out operator. On-call out operator reports patient has a employment case manager named Shiela and took SW information. On-call out operator reports they were aware patient was likely to be evicted. Worker reports pt's employment case manager would call in the morning. SW explained patient may already be discharged at that time. Patient presents as DD intermediate appropriate. It is unclear why patient was evicted and arrangements not made previously for housing. Pt does not present as SNF appropriate. Pt does have chronic medical concerns with his heart and a colostomy bag but nothing new or that requires admission. Pt's conditions have been managed on-going by patient and patient has resided independently. Pt likely to be discharged due to denying any medical concerns at this time. Pt owns a car that is present at the ED and is able to transport self. CM at [place] to be notified of patient status and DD CM notified. Sonia Stapleton SLIDE FORMING MACHINE TENDER, [employer]ARD [employer]
[2022-12-14 21:30] VITALS: BP 150/84; PULSE 72; RESP 18; O2SAT 99
--- NOTE | 2022-12-14 21:53 | ED.RN ---
THIS RN LET DR. ARELLANO KNOW PT DOES NOT HAVE ACCESS TO HOME MEDICATIONS. DR. ARELLANO TO ORDER NIGHTTIME PRESCRIPTIONS FOR PT THROUGH MEDS TO BED. PHARMACY UNABLE TO FILL PRESCRIPTIONS DUE TO PT INSURANCE NOT COVERING REFILL SO SOON AFTER PREVIOUS REFILL. DR. ARELLANO AWARE. THIS RN EDUCATED PT ON AVAILABLE RESOURCES SUCH THE [facility]. PT STATES HE IS ABLE TO DRIVE AND HAS A DRIVERS LICENSE.
[2022-12-14] MEDS: Rivaroxaban 20 MG Tablet PO (22:08)
[2022-12-14] MEDS: Carvedilol 3.125 MG TABLET PO (22:08)
[2022-12-14] MEDS: Digoxin 250 MCG Tablet PO (22:08)
[2022-12-14 22:10] VITALS: RESP 18
[2022-12-14 23:09] VITALS: BP 112/71; PULSE 67; RESP 18; O2SAT 97
== END 2022-12-14 22:26 | disposition home or self-care (01) ==
PROVIDERS: Emergency Provider Emergency Medicine; PCP Family Medicine; Visit Provider Emergency Medicine
DX: F41.9 Anxiety disorder, unspecified (principal); Z59.00 Homelessness unspecified; Z95.810 Presence of automatic (implantable) cardiac defibrillator
CPT/HCPCS: 99282; A4216

== ENCOUNTER 2023-01-12 14:53 | Emergency (ER) | payer MEDICARE, MEDICAID, SELFPAY ==
[2023-01-12 14:54] VITALS: BP 130/89; PULSE 108; RESP 18; TEMP 35.7; O2SAT 99; BMI 29.0
--- NOTE | 2023-01-12 15:21 | EX.ED.DYSGE1 ---
HPI History of Present Illness Chief Complaint: General Illness Informant: patient Narrative Narrative: Presents with cold-like symptoms for the past week that progressed to nausea and vomiting over the last day as well as headache today. He has had some chills and feels intermittently dizzy. Patient states he has been homeless for the past month and has been living in his car. He has not been taking his medications. He states has been eating out a lot, but [facility] that he usually attends. He has not taken anything for headache today. [facility] Medical History Benign hypertension Dilated cardiomyopathy Essential hypertension History of complete heart block History of depression Hyperlipidemia Mental retardation Paroxysmal atrial fibrillation Second degree AV block, Mobitz type II Tachycardia-bradycardia syndrome Ulcerative colitis Ventricular tachycardia Home Medications multivitamin with folic acid 400 mcg tablet 1 tab PO DAILY supplement 11/09/15 [History Last Taken 06/18/21] Handicap placard #1 ea 11/01/18 [Rx Last Taken Unknown] cholecalciferol (vitamin D3) 10 mcg (400 unit) capsule 400 unit PO DAILY supplement 04/23/19 [History Last Taken 06/18/21] vitamin B complex (B Complex-Vitamin B12 tablet) 1 tab PO DAILY supplement 04/23/19 [History Last Taken 06/18/21] carvedilol 3.125 mg tablet 3.125 mg PO BID #180 tabs 06/08/22 [Rx Last Taken Unknown] rivaroxaban 20 mg tablet (Xarelto) See Rx Instructions .Route .COMPLEX #30 TABLETS 07/07/22 [Rx Last Taken Unknown] digoxin 250 mcg (0.25 mg) tablet See Rx Instructions .Route .COMPLEX #28 tabs 09/25/22 [Rx Last Taken Unknown] lisinopril 2.5 mg tablet See Rx Instructions .Route .COMPLEX #56 tabs 09/25/22 [Rx Last Taken Unknown] ondansetron 4 mg disintegrating tablet 4 mg PO TID PRN nausea and vomiting #21 tabs 11/21/22 [Rx Last Taken Unknown] oxycodone-acetaminophen 5 mg-325 mg tablet (Percocet) 1 tab PO Q6H PRN pain 3 days #12 tabs 11/21/22 [Rx Last Taken Unknown] carvedilol 3.125 mg tablet 3.125 mg PO BID #60 tabs 12/14/22 [Rx Last Taken Unknown] digoxin 250 mcg (0.25 mg) tablet 250 mcg PO DAILY #30 tabs 12/14/22 [Rx Last Taken Unknown] rivaroxaban 20 mg tablet (Xarelto) 20 mg PO DAILY #30 tabs 12/14/22 [Rx Last Taken Unknown] promethazine 25 mg tablet 25 mg PO TID PRN nausea and vomiting #14 tabs 01/12/23 [Rx Last Taken Unknown] Allergy/AdvReac Type Severity Reaction Status Date / Time infliximab [From Remicade] Allergy Unknown Verified 01/12/23 14:54 Family History Unknown No problems noted. Surgical History Biventricular implantable cardioverter-defibrillator (ICD) in situ History of ileostomy Social History Smoking Status: Never smoker alcohol intake: never substance use type: does not use caffeine: Yes Type: tea what type of physical activity do you participate in: none seatbelt use: always do you feel safe at home: Yes ROS ROS ED Constitutional Constitutional ED: Reports chills; Denies fever(s) Eyes Eyes: Denies change in vision or discharge from eye(s) ENT ENT ED: Reports rhinorrhea and other Details: Congestion ; Denies discharge from eye(s) or sore throat Cardiovascular Cardiovascular: Denies chest pain or palpitations Respiratory/Chest Respiratory/Chest: Reports cough and dyspnea Gastrointestinal Gastrointestinal: Reports nausea and vomiting; Denies abdominal pain or diarrhea Musculoskeletal Musculoskeletal: Denies back pain or extremity pain Integumentary Denies Abrasions or rash Neurologic Neurologic: Reports headache(s); Denies weakness Psychiatric Psychiatric: Denies anxiety or depression Endocrine Endocrinology: Denies polydipsia or polyuria Allergic/Immunologic Allergic/Immunologic ED: Denies lip swelling or urticaria EXAM Physical Exam Const Vital Signs: 01/12/23 14:54 Temperature 96.3 F L Temperature Source Temporal Pulse Rate 108 H Respiratory Rate 18 Blood Pressure 130/89 H Blood Pressure Mean 102 Pulse Ox 99 Oxygen Delivery Method Room Air Positive well nourished and well developed General Appearance ED: well developed HEENT Reports moist mucous membranes Eyes EOMs intact bilaterally Chest Wall inspection of chest normal and palpation of chest normal Resp normal respiratory effort and clear to auscultation bilaterally Cardio Rate: tachycardic GI non-tender Palpation: soft Extremity normal to inspection Neuro oriented x3 and no sensory deficits noted Motor Exam: strength 5/5 throughout Psych mental status grossly normal Skin no rashes or lesions noted MDM MDM MDM Narrative Medical decision making narrative: Patient given IV fluids along with Toradol and Phenergan. EKG obtained to evaluate for cardiac arrhythmia/ischemia. Labwork obtained to evaluate for leukocytosis, anemia, and electrolyte derangement. Swab for COVID and influenza obtained. Chest x-ray obtained to evaluate for acute lung pathology, cardiac size, or mediastinal abnormality. Lab Data Attestation: I reviewed the patient's lab results. Labs: Laboratory Results - last 24 hr 01/12/23 15:57 WBC 7.6 RBC 6.15 Hgb 11.9 L Hct 39.4 L MCV 64.1 L MCH 19.3 L MCHC 30.2 L RDW Std Deviation 36.4 RDW Coeff of Milagros 17.8 H Plt Count 187 MPV 10.7 Immature Gran % (Auto) 0.500 Neut % (Auto) 66.1 Lymph % (Auto) 13.9 L [place] % (Auto) 11.6 H Eos % (Auto) 7.5 H Baso % (Auto) 0.4 Absolute Neuts (auto) 5.0 Absolute Lymphs (auto) 1.05 Nucleated RBC % 0 Sodium 141 Potassium 3.9 Chloride 106 Carbon Dioxide 32.0 Anion Gap 3 L BUN 9 Creatinine 0.82 Estim Creat Clear Calc 81.92 Est GFR (MDRD) Af Amer 126 Est GFR (MDRD) Non-Af 104 BUN/Creatinine Ratio 11.0 Glucose 92 Calcium 9.0 Radiography Diagnostic Testing: Clinical Impression(s) from Imaging Studies Chest X-Ray 01/12/23 16:09 IMPRESSION: No acute findings in the chest. Electronically Signed: Garrison Lebron MD at 16:41 EDT , Treatment and Re-Evaluation :: CBC was normal white count at 7.6 with normal differential. Hemoglobin is 11.9. Chemistry studies are unremarkable. Portable chest x-ray per my interpretation reveals no focal infiltrate. Radiology interpretation is reviewed and agrees. Labs for COVID and influenza is negative. Repeat evaluation patient is resting comfortably. He has not had any further vomiting. I will give him a prescription for Phenergan to help with any vomiting at home. I avoided Zofran as his QTc is 502. I also spoke with social work regarding the patient currently living in his car. She reached out to his skilled nursing case manager to see how close they are to placement, however it is Sunday afternoon and she has not yet received a return call. Patient is being given resources for the area. Patient is encouraged to reach out to his primary care physician for his medications if he does not fact need refills. Discharge Plan Triage Chief Complaint: General Illness ED Provider: Caroline Sanchez Dx/Rx/DC Orders Clinical Impression: Viral URI Instructions: ED URI, Viral, No Abx (Adult) Prescriptions: New promethazine 25 mg tablet 25 mg PO TID PRN (Reason: nausea and vomiting) Qty: 14 0RF No Action cholecalciferol (vitamin D3) 400 unit capsule 400 unit PO DAILY vitamin B complex [B Complex-Vitamin B12] Tablet 1 tab PO DAILY multivitamin with folic acid 1 TABLET tablet 1 tab PO DAILY oxycodone-acetaminophen [Percocet] 5-325 mg tablet 1 tab PO Q6H PRN (Reason: pain) 3 Days Qty: 12 0RF ondansetron 4 mg tablet,disintegrating 4 mg PO TID PRN (Reason: nausea and vomiting) Qty: 21 0RF carvedilol 3.125 mg tablet 3.125 mg PO BID Qty: 60 0RF Rx Instructions: must administer with a meal/food digoxin 250 mcg (0.25 mg) tablet 250 mcg PO DAILY Qty: 30 0RF Xarelto 20 mg tablet 20 mg PO DAILY Qty: 30 0RF Rx Instructions: must administer with evening meal (DME) Handicap placard Qty: 1 0RF Rx Instructions: Lifetime carvedilol 3.125 mg tablet 3.125 mg PO BID Qty: 180 3RF Xarelto 20 mg tablet See Rx Instructions .ROUTE .COMPLEX Qty: 30 11RF Dose Instruction: TAKE 1 TABLET BY MOUTH DAILY Rx Instructions: TAKE 1 TABLET BY MOUTH DAILY lisinopril 2.5 mg tablet See Rx Instructions .ROUTE .COMPLEX Qty: 56 11RF Dose Instruction: TAKE 1 TABLET BY MOUTH TWICE A DAY Rx Instructions: TAKE 1 TABLET BY MOUTH TWICE A DAY digoxin 250 mcg (0.25 mg) tablet See Rx Instructions .ROUTE .COMPLEX Qty: 28 11RF Dose Instruction: TAKE 1 TABLET BY MOUTH DAILY Rx Instructions: TAKE 1 TABLET BY MOUTH DAILY Primary Care Provider: Bunny Hendrix Referrals: Bunny Hendrix MD [Primary Care Provider] - As soon as possible Disposition Disposition: Home, Self Care
[2023-01-12] MEDS: proMETHazine 25 MG/ML Syringe 12.5 MG IM (16:03)
[2023-01-12] MEDS: 0.9% Normal Saline (1000mL) 1,000 ML 1000 ML IV (16:03)
[2023-01-12] MEDS: Ketorolac 15 MG/ML Vial IV (16:03)
--- NOTE | 2023-01-12 16:09 | RAD_ITS ---
EXAM: XR CHEST, 1 VIEW CLINICAL INDICATION: cough TECHNIQUE: Frontal view of the chest. COMPARISON: 12/10/2022 FINDINGS: LUNGS AND PLEURAL SPACES: Unremarkable. No consolidation or edema. No pneumothorax. No effusion. HEART: Unremarkable. Cardiac silhouette not enlarged. MEDIASTINUM: Central airways and mediastinal contour are unremarkable. BONES/JOINTS: Unremarkable. SOFT TISSUES: Unremarkable. TUBES, LINES AND DEVICES: Left-sided pacemaker in stable position. RAD/Chest 1 View (Portable) IMPRESSION: No acute findings in the chest. Electronically Signed: Garrison Lebron MD at 16:41 EDT ,
[2023-01-12 16:21] LABS: Absolute Lymphocyte Count 1.05 X10^3/uL (0.83-4.51); Basophil# 0.03 X10^3/uL; Basophil% 0.4 % (0-1); Eosinophil# 0.57 X10^3/uL; Eosinophils% 7.5 % (0-5); Hematocrit 39.4 % (40-54); Hemoglobin 11.9 g/dL (13.0-16.5); Lymphocyte # 1.05 X10^3/ul (0.83-4.51); Lymphocyte % 13.9 % (19-41); Mean Corp Hgb Conc 30.2 g/dL (32-36); Mean Corpuscular Hgb 19.3 pg (27.0-32.0); Mean Corpuscular Volume 64.1 fL (80-94); Mean Platelet Vol. 10.7 fl (6.2-12.0); Monocyte# 0.88 X10^3/uL; Monocyte% 11.6 % (0-10); NRBC Flagged by Analyzer 0 % (0-5); Neutrophil # 5.01 X10^3/uL (2.7-7.7); Neutrophil % 66.1 % (47-70); Platelet Count 187 K/mm3 (150-450); RBC Distribution Width CV 17.8 % (11.6-14.6); RBC Distribution Width SD 36.4 fl (35.1-43.9); Red Blood Count 6.15 M/mm3 (4.6-6.2); White Blood Count 7.6 K/mm3 (4.4-11.0)
--- NOTE | 2023-01-12 16:22 | CM.ED ---
Addendum entered by Karma Valentine 01/12/23 17:49: SW met with patient and introduced self and role as [facility] SW. Patient lying in hospital bed and agreeable to speak with SW. SW engaged patient in conversation regarding housing and current resources. Patient reports being evicted a month ago and has been living out of his car. Patient reports little contact from his payee and CM. SW reviewed local housing resources as well as homeless shelters. Patient denied resources, reporting he has the [facility] list as well as group home list. Patient reports he has worked with [employer] and [facility] previously. Patient explained he has been going to a [facility] on [place] frequently for meals and emotional support. SW inquired about MH support. Patient reports he isn't engaged nor interested. SW reviewed local MH agencies and discussed [facility] as they have DD programs. Patient receptive and reports he has been there recently but is unsure about engaging in services. SW provided emotional support. Patient reports he plans to continue to stay in his car until [facility] has a bed available. SW encouraged patient to call daily as things can change as well as call his DD CM and payee for assistance. Care team updated. Plan: patient staying in his car until a bed is available at [facility] and should follow up with his DD CM. Patient declined list of resources MICHELLE Soliman Original Note: Social Work Referral Source: MD Sanchez Referral Reason: discharge planning/ resources MD Sanchez informed SW patient is currently homeless, hasn't been taking health medications consistently but reports being aware of free breakfast at a [facility] and frequently goes. ELVIN performed chart review. Per SW note on 12/14/22, patient had been evicted from his home and encouraged to go to [facility]. Patient has a payee from [place], CM with [facility] Board of DD, Shiela Guadarrama and is not active with [facility] services. SW contacted Board of DD and left for patient's CM requesting a return phone call. SW to follow along for d/c needs. MICHELLE Soliman
[2023-01-12 16:26] LABS: Anion Gap 3 (5-15); BUN 9 mg/dL (7-18); Chloride 106 mmol/L (98-107); Creatinine, Serum 0.82 mg/dL (0.70-1.30); EST Glomerular Filtration Rate 104 mL/min (>60); Est Glom Filt Rate - Afr Amer 126 mL/min (>60); Estimated Creatinine Clearance 81.92 ml/min; Glucose 92 mg/dL (74-106); Potassium 3.9 mmol/L (3.5-5.1); Sodium Level 141 mmol/L (136-145)
[2023-01-12 17:45] VITALS: BP 134/71; PULSE 84; RESP 16; O2SAT 98
== END 2023-01-12 17:46 | disposition home or self-care (01) ==
PROVIDERS: Emergency Provider Emergency Medicine; PCP Family Medicine; Visit Provider Emergency Medicine
DX: J06.9 Acute upper respiratory infection, unspecified (principal); Z95.810 Presence of automatic (implantable) cardiac defibrillator
CPT/HCPCS: 71045; 80048; 85025; 87428; 93005; 96372; 96374; 96375; 99283; J7030; A4216

== ENCOUNTER 2023-04-01 16:44 | Emergency (ER) | payer MEDICARE, MEDICAID, SELFPAY ==
[2023-04-01] VITALS (9 sets, daily range): BP systolic 76–141; BP diastolic 52–70; PULSE 71–88; RESP 16–25; TEMP 36.8; O2SAT 94–98; BMI 27.6
[2023-04-01 17:04] LABS: Absolute Lymphocyte Count 0.98 X10^3/uL (0.83-4.51); Absolute Neutrophil Count 3.7 X10^3/uL (2.0-7.7); Basophil# 0.01 X10^3/uL; Basophil% 0.2 % (0-1); Eosinophil# 0.01 X10^3/uL; Eosinophils% 0.2 % (0-5); Hematocrit 38.6 % (40-54); Hemoglobin 11.9 g/dL (13.0-16.5); Lymphocyte # 0.98 X10^3/ul (0.83-4.51); Lymphocyte % 18.5 % (19-41); Mean Corp Hgb Conc 30.8 g/dL (32-36); Mean Corpuscular Hgb 18.5 pg (27.0-32.0); Mean Corpuscular Volume 59.9 fL (80-94); Monocyte# 0.56 X10^3/uL; Monocyte% 10.6 % (0-10); NRBC Flagged by Analyzer 0 % (0-5); Neutrophil # 3.69 X10^3/uL (2.7-7.7); Neutrophil % 69.7 % (47-70); Platelet Count 181 K/mm3 (150-450); RBC Distribution Width CV 16.5 % (11.6-14.6); RBC Distribution Width SD 30.8 fl (35.1-43.9); Red Blood Count 6.44 M/mm3 (4.6-6.2); White Blood Count 5.3 K/mm3 (4.4-11.0)
[2023-04-01 17:14] LABS: Bacteria 0 SEEN /hpf (None Seen); Mucous, Urine 0 SEEN /hpf (<or=2+)
[2023-04-01 17:20] LABS: Color, Urine Yellow (Yellow); Glucose, Dipstick Normal (Normal); Ketone-Dipstick 15 mg/dl (Negative); Leukocyte Esterase-Dipstick 25 /ul (Negative); Nitrite-Dipstick Negative (Negative); Occult Blood-Urine 25 /ul (Negative); Protein-Dipstick 100 mg/dl (Negative); Specific Gravity, Urine 1.025 (1.002-1.030); Urine Bilirubin Dipstick Negative (Negative); Urine Clarity Sl. Cloudy (Clear); Urine Urobilinogen Normal (Normal)
[2023-04-01 17:27] LABS: ALB/GLOB Ratio 0.8 RATIO (0.9-2.4); AST(SGOT) 34 U/L (15-37); Alanine Aminotransfer ALT/SGPT 39 U/L (16-61); Albumin, Serum 3.7 g/dL (3.2-5.0); Alkaline Phosphatase 80 U/L (45-117); Anion Gap 5 (5-15); BUN 26 mg/dL (7-18); BUN/Creat Ratio 22.2 RATIO (10-20); Calcium,Total 9.7 mg/dL (8.5-10.1); Chloride 102 mmol/L (98-107); Creatinine, Serum 1.17 mg/dL (0.70-1.30); EST Glomerular Filtration Rate 69 mL/min (>60); Est Glom Filt Rate - Afr Amer 83 mL/min (>60); Estimated Creatinine Clearance 57.41 ml/min; Globulin 4.6 g/dL (2.2-4.2); Glucose 119 mg/dL (74-106); Potassium 3.8 mmol/L (3.5-5.1); Protein, Total 8.3 g/dL (6.4-8.2); Sodium Level 136 mmol/L (136-145)
[2023-04-01 17:28] LABS: Hyaline Cast 0-5 SEEN /lpf (0-5); Red Blood Cells-Urine 0-5 SEEN /hpf (0-5); Squamous Epithelial Cells - UA 0-5 SEEN /hpf (0-5); White Blood Cells 0-5 SEEN /hpf (0-5)
--- NOTE | 2023-04-01 17:49 | ED.VIS.GI ---
HPI HPI - GI History of Present Illness Chief Complaint: Nausea/Vomiting Informant: patient Abdominal Pain/Flank Pain Onset: Days (3) Context: Gradual Onset Timing: Continuous Quality: Stabbing Location: RUQ and RLQ Worsened by: Nothing Relieved by: Nothing Nausea/Vomiting/Emesis GI Symptom: Positive for Nausea and Vomiting Onset: Days (3) Quality: Positive for Nonbilious; Negative for Blood streaks, Coffee ground or Hematemesis Diarrhea/Melena/Hematochezia GI Symptom: Positive for Diarrhea; Negative for Melena or Hematochezia Onset: Days (3) Associated Symptoms Associated Symptoms: Positive for Dysuria; Negative for Frequency or Hematuria Narrative Narrative: Patient presents with abdominal pain that has been getting worse over the past 3 days. Patient states it is gradually getting worse. Patient states his pain has been constant for the past 3 days. Patient describes his pain as stabbing. Patient states his pain is mostly over the right side of his abdomen. Patient states nothing makes it better nothing makes it worse. Patient admits to some nausea and vomiting but denies any hematemesis or coffee-ground emesis. Patient admits to some diarrhea but denies any melena or hematochezia. Patient admits to some dysuria but denies any frequency or hematuria. [facility] Medical History Benign hypertension Dilated cardiomyopathy Essential hypertension History of complete heart block History of depression Hyperlipidemia Mental retardation Paroxysmal atrial fibrillation Second degree AV block, Mobitz type II Tachycardia-bradycardia syndrome Ulcerative colitis Ventricular tachycardia Home Medications multivitamin with folic acid 400 mcg tablet 1 tab PO DAILY supplement 11/09/15 [History Last Taken 06/18/21] Handicap placard #1 ea 11/01/18 [Rx Last Taken Unknown] cholecalciferol (vitamin D3) 10 mcg (400 unit) capsule 400 unit PO DAILY supplement 04/23/19 [History Last Taken 06/18/21] vitamin B complex (B Complex-Vitamin B12 tablet) 1 tab PO DAILY supplement 04/23/19 [History Last Taken 06/18/21] carvedilol 3.125 mg tablet 3.125 mg PO BID #180 tabs 06/08/22 [Rx Last Taken Unknown] rivaroxaban 20 mg tablet (Xarelto) See Rx Instructions .Route .COMPLEX #30 TABLETS 07/07/22 [Rx Last Taken Unknown] digoxin 250 mcg (0.25 mg) tablet See Rx Instructions .Route .COMPLEX #28 tabs 09/25/22 [Rx Last Taken Unknown] lisinopril 2.5 mg tablet See Rx Instructions .Route .COMPLEX #56 tabs 09/25/22 [Rx Last Taken Unknown] ondansetron 4 mg disintegrating tablet 4 mg PO TID PRN nausea and vomiting #21 tabs 11/21/22 [Rx Last Taken Unknown] oxycodone-acetaminophen 5 mg-325 mg tablet (Percocet) 1 tab PO Q6H PRN pain 3 days #12 tabs 11/21/22 [Rx Last Taken Unknown] carvedilol 3.125 mg tablet 3.125 mg PO BID #60 tabs 12/14/22 [Rx Last Taken Unknown] digoxin 250 mcg (0.25 mg) tablet 250 mcg PO DAILY #30 tabs 12/14/22 [Rx Last Taken Unknown] rivaroxaban 20 mg tablet (Xarelto) 20 mg PO DAILY #30 tabs 12/14/22 [Rx Last Taken Unknown] promethazine 25 mg tablet 25 mg PO TID PRN nausea and vomiting #14 tabs 01/12/23 [Rx Last Taken Unknown] ondansetron 4 mg disintegrating tablet 4 mg PO Q8H PRN PRN Nausea #10 tabs 04/01/23 [Rx Last Taken Unknown] Allergy/AdvReac Type Severity Reaction Status Date / Time infliximab [From Remicade] Allergy Unknown Verified 04/01/23 16:44 Family History Unknown No problems noted. Surgical History Biventricular implantable cardioverter-defibrillator (ICD) in situ History of ileostomy Social History Smoking Status: Never smoker alcohol intake: never substance use type: does not use caffeine: Yes Type: tea what type of physical activity do you participate in: none seatbelt use: always do you feel safe at home: Yes ROS ROS ED Constitutional Constitutional ED: Reports fever(s) and subjective; Denies chills Eyes Eyes: Denies blurry vision or change in vision ENT ENT ED: Denies rhinorrhea or sore throat Cardiovascular Cardiovascular: Denies chest pain or palpitations Respiratory/Chest Respiratory/Chest: Reports cough; Denies dyspnea Gastrointestinal Gastrointestinal: Reports abdominal pain, diarrhea, nausea and vomiting Genitourinary Genitourinary ED: Reports dysuria; Denies hematuria Musculoskeletal Musculoskeletal: Denies back pain or neck pain Integumentary Denies abscess or rash Neurologic Neurologic: Reports headache(s); Denies weakness Allergic/Immunologic Allergic/Immunologic ED: Denies mouth swelling or urticaria EXAM Physical Exam Const Vital Signs: 04/01/23 16:45 04/01/23 16:44 04/01/23 16:49 Temperature 98.2 F Temperature Source Temporal Pulse Rate 71 Respiratory Rate 18 Blood Pressure 86/61 L 76/58 L 84/52 L Blood Pressure Mean 69 64 62 Pulse Ox 98 Oxygen Delivery Method Room Air 04/01/23 17:08 04/01/23 18:10 04/01/23 19:17 Temperature 98.2 F Temperature Source Temporal Pulse Rate 88 88 83 Respiratory Rate 25 H 24 H 23 H Blood Pressure 141/70 H 103/61 103/61 Blood Pressure Mean 93 75 75 Pulse Ox 97 95 96 Oxygen Delivery Method Room Air Room Air Room Air 04/01/23 19:17 04/01/23 20:00 04/01/23 21:00 Temperature Temperature Source Pulse Rate 88 80 76 Respiratory Rate 18 20 H 18 Blood Pressure 103/61 98/58 L 100/68 Blood Pressure Mean 75 71 78 Pulse Ox 95 95 95 Oxygen Delivery Method Room Air Room Air Room Air Positive well nourished and well developed General Appearance ED: well developed and NAD HEENT Reports dry mucous membranes Mouth ED: Yes dry mucous membranes Mouth: dry mucous membranes Neck supple and no JVD Resp normal respiratory effort and clear to auscultation bilaterally Cardio regular rate and regular rhythm GI non-distended Palpation: soft and tender epigastric, RLQ, RUQ, periumbilical and suprapubic; Negative for guarding or rebound tenderness present Neuro CN's II-XII intact bilaterally, moves all extremities and no sensory deficits noted Sensorium / Orientation: alert Motor Exam: strength 5/5 throughout Psych mental status grossly normal MDM MDM MDM Narrative Medical decision making narrative: Differential diagnosis includes gastroenteritis, viral illness, dehydration, electrolyte abnormality, bowel obstruction, perforation, urinary tract infection, and pyelonephritis. CBC will be obtained to assess for leukocytosis and anemia. Comprehensive metabolic profile will be obtained to assess for electrolyte abnormality, renal function, and hepatic function. Urinalysis will be obtained to assess for urinary tract infection and hematuria. COVID-19 rapid antigen will be obtained to assess for COVID-19 infection. Influenza A and influenza B antigens will be obtained to assess for influenza infection. PT with INR and PTT will be obtained to assess for coagulopathy. CT scan of the abdomen and pelvis will be obtained to assess for bowel obstruction and perforation. Digoxin level will be obtained to assess for digoxin toxicity. Lab Data Attestation: I reviewed the patient's lab results. Lab results narrative: CBC was reviewed. There is a mild anemia with a hemoglobin of 11.9 and hematocrit 38.6. Comprehensive metabolic profile was reviewed and was essentially within normal limits. Urinalysis was reviewed. There is no evidence of urinary tract infection or hematuria. PT was INR and PTT were reviewed and were essentially within normal limits. Digoxin level was reviewed and was slightly subtherapeutic at 0.42. Analysis was reviewed. There is no evidence of urinary tract infection or hematuria. Influenza antigen was reviewed and was positive for influenza A. COVID-19 rapid antigen was reviewed and was negative. Labs: Laboratory Results - last 24 hr 04/01/23 04/01/23 04/01/23 16:54 17:00 18:00 WBC 5.3 RBC 6.44 H Hgb 11.9 L Hct 38.6 L MCV 59.9 L MCH 18.5 L MCHC 30.8 L RDW Std Deviation 30.8 L RDW Coeff of Milagros 16.5 H Plt Count 181 Immature Gran % (Auto) 0.800 Neut % (Auto) 69.7 Lymph % (Auto) 18.5 L [place] % (Auto) 10.6 H Eos % (Auto) 0.2 Baso % (Auto) 0.2 Absolute Neuts (auto) 3.7 Absolute Lymphs (auto) 0.98 Nucleated RBC % 0 PT 14.6 INR 1.1 APTT 48.7 H Sodium 136 Potassium 3.8 Chloride 102 Carbon Dioxide 29.0 Anion Gap 5 BUN 26 H Creatinine 1.17 Estim Creat Clear Calc 57.41 Est GFR (MDRD) Af Amer 83 Est GFR (MDRD) Non-Af 69 BUN/Creatinine Ratio 22.2 H Glucose 119 H Calcium 9.7 Total Bilirubin 0.40 AST 34 ALT 39 Alkaline Phosphatase 80 Total Protein 8.3 H Albumin 3.7 Globulin 4.6 H Albumin/Globulin Ratio 0.8 L Urine Color Yellow Urine Clarity Sl. Cloudy Urine pH 6.0 Ur Specific [place] 1.025 Urine Protein 100 H Urine Glucose (UA) Normal Urine Ketones 15 H Urine Occult Blood 25 H Urine Nitrite Negative Urine Bilirubin Negative Urine Urobilinogen Normal Ur Leukocyte Esterase 25 H Urine RBC 0-5 SEEN Urine WBC 0-5 SEEN Ur Squamous Epith Cells 0-5 SEEN Urine Bacteria 0 SEEN Hyaline Casts 0-5 SEEN Urine Mucus 0 SEEN Digoxin 0.42 L Radiography Diagnostic Testing: Clinical Impression(s) from Imaging Studies Abdomen/Pelvis CT 04/01/23 17:56 IMPRESSION: (NOT LISTED IN ORDER OF SIGNIFICANCE) There are no acute findings. Other findings as above. Electronically Signed: Irving Briceño MD at 20:37 EST Reading Location ID and State: [facility] / [place] , Service support , CT scan of the abdomen pelvis was obtained. There is no free air or free fluid. There is no evidence of bowel obstruction. There is no acute abnormality noted. This was interpreted by the radiologist and was also independently reviewed by myself. Treatment and Re-Evaluation :: Patient was given IV fluids and Zofran here. Patient is feeling better on reevaluation. Patient was advised of his findings. Patient was given a prescription for Zofran. Patient was instructed to start with small amounts of fluids more frequently. Patient was instructed to follow-up with his primary care physician in 5 to 7 days. Patient is outside of the window for Tamiflu. Patient understands and is agreeable with the plan. All questions were answered. Discharge Plan Triage Chief Complaint: Nausea/Vomiting ED Provider: Wilbert Padgett Dx/Rx/DC Orders Clinical Impression: Influenza A, Nausea and vomiting Instructions: ED Influenza (Adult), ED Vomiting (Adult) Prescriptions: New ondansetron [ondansetron] 4 mg tablet,disintegrating 4 mg PO Q8H PRN PRN (Reason: Nausea) Qty: 10 0RF No Action cholecalciferol (vitamin D3) 400 unit capsule 400 unit PO DAILY vitamin B complex [B Complex-Vitamin B12] Tablet 1 tab PO DAILY multivitamin with folic acid 1 TABLET tablet 1 tab PO DAILY oxycodone-acetaminophen [Percocet] 5-325 mg tablet 1 tab PO Q6H PRN (Reason: pain) 3 Days Qty: 12 0RF ondansetron 4 mg tablet,disintegrating 4 mg PO TID PRN (Reason: nausea and vomiting) Qty: 21 0RF promethazine 25 mg tablet 25 mg PO TID PRN (Reason: nausea and vomiting) Qty: 14 0RF carvedilol 3.125 mg tablet 3.125 mg PO BID Qty: 60 0RF Rx Instructions: must administer with a meal/food digoxin 250 mcg (0.25 mg) tablet 250 mcg PO DAILY Qty: 30 0RF Xarelto 20 mg tablet 20 mg PO DAILY Qty: 30 0RF Rx Instructions: must administer with evening meal (DME) Handicap placard Qty: 1 0RF Rx Instructions: Lifetime carvedilol 3.125 mg tablet 3.125 mg PO BID Qty: 180 3RF Xarelto 20 mg tablet See Rx Instructions .ROUTE .COMPLEX Qty: 30 11RF Dose Instruction: TAKE 1 TABLET BY MOUTH DAILY Rx Instructions: TAKE 1 TABLET BY MOUTH DAILY lisinopril 2.5 mg tablet See Rx Instructions .ROUTE .COMPLEX Qty: 56 11RF Dose Instruction: TAKE 1 TABLET BY MOUTH TWICE A DAY Rx Instructions: TAKE 1 TABLET BY MOUTH TWICE A DAY digoxin 250 mcg (0.25 mg) tablet See Rx Instructions .ROUTE .COMPLEX Qty: 28 11RF Dose Instruction: TAKE 1 TABLET BY MOUTH DAILY Rx Instructions: TAKE 1 TABLET BY MOUTH DAILY Primary Care Provider: Bunny Hendrix Referrals: Bunny Hendrix MD [Primary Care Provider] - 3-5 Days Disposition Disposition: Home, Self Care
--- NOTE | 2023-04-01 17:56 | CT_ITS ---
STUDY: CT Abdomen And Pelvis W/ Contrast Injection 04/01/2023 8:34 PM REASON FOR EXAM: Male, 57 years old. ABDOMINAL PAIN Abdominal pain -- IV PO Contrast TECHNIQUE: Transaxial images were obtained with oral contrast, and Oral and amp; IV Gastrografin and amp; 100mL Isovue-370 intravenous contrast. Individualized dose optimization techniques were used for this CT. COMPARISON: November 21, 2022 FINDINGS: The visualized lung bases are unremarkable. The visualized portions of the heart are within normal limits. Unremarkable liver. Unremarkable gallbladder and extrahepatic biliary system. Unremarkable spleen. Unremarkable pancreas. Unremarkable bilateral adrenal glands. There are hypodensities in the right kidney. These are consistent for cysts. No follow up required. No acute findings of the left kidney. Unremarkable visualized stomach. Unremarkable small intestine. Total colectomy changes. Right lower quadrant ileostomy. There is non-visualization of the appendix. There are no acute findings of the abdominal aorta. Unremarkable inferior vena cava. Subcentimeter mesenteric lymph nodes. Unremarkable urinary bladder. There are prostatic calcifications. Rectal stump noted. Unremarkable abdominal wall. There are diffuse degenerative changes of the visualized lumbar spine. CT/Abdomen/Pelvis WITH Contrast IMPRESSION: (NOT LISTED IN ORDER OF SIGNIFICANCE) There are no acute findings. Other findings as above. Electronically Signed: Irving Briceño MD at 20:37 EST ,
[2023-04-01] MEDS: 0.9% Normal Saline (1000mL) 1,000 ML 1000 ML IV (18:07)
[2023-04-01] MEDS: Ondansetron 4 MG/2 ML Vial IV (18:08)
[2023-04-01 18:17] LABS: International Normalized Ratio 1.1; Prothrombin Time (Protime)PT. 14.6 SECONDS (11.7-14.9)
[2023-04-01 18:18] LABS: Partial Thromboplast Time 48.7 Seconds (24.1-36.2)
[2023-04-01 18:45] LABS: Digoxin Level 0.42 ng/mL (0.80-2.00)
== END 2023-04-01 22:31 | disposition home or self-care (01) ==
PROVIDERS: Emergency Provider Emergency Medicine; PCP Family Medicine; Visit Provider Emergency Medicine
DX: J10.1 Influenza due to other identified influenza virus with other respiratory manifestations (principal); I42.0 Dilated cardiomyopathy; I48.0 Paroxysmal atrial fibrillation; R11.2 Nausea with vomiting, unspecified; Z95.810 Presence of automatic (implantable) cardiac defibrillator
CPT/HCPCS: 74177; 80053; 80162; 81001; 85025; 85610; 85730; 87428; 96361; 96374; 99283; J7030; Q9967; A4216; J2405

== ENCOUNTER → 2024-02-08 | Outpatient (CLI) | payer MEDICARE, MEDICAID, SELFPAY ==
--- NOTE | 2024-02-08 09:06 | ECHOD_ITS ---
Reason For Study: Arrhythmia Procedure This was a 2D Doppler, Color Flow transthoracic echocardiogram. Exam performed in department. Left Ventricle Normal left ventricle. Left ventricular systolic function is normal. The left ventricular ejection fraction is 60 %. No regional wall motion abnormalities noted. Right Ventricle Normal RV size. ICD or pacer leads identified within the right ventricle. Normal systolic function. Atria Normal left atrium. Mitral Valve Normal mitral valve. Tricuspid Valve Normal tricuspid valve. Mild tricuspid valve insufficiency. Aortic Valve Trisinus/trileaflet aortic valve. Pulmonic Valve Normal pulmonic valve. Great Vessels Normal aortic root. Pericardium/Pleural No pericardial effusion. MMode/2D Measurements & Calculations LVIDd: 4.7 cm IVSd: 0.86 cm LVOT diam: 2.0 cm LVIDs: 3.5 cm LVPWd: 0.98 cm LVOT area: 3.2 cm2 RVDd: 4.1 cm FS: 26.5 % Ao root diam: 3.1 cm LAV(MOD-bp): 37.8 ml LA A4 area: 15.2 cm2 LAV(MOD-bp) Indexed: 20.8 ml/m2 LAV(MOD-sp2): 33.2 ml LAV(MOD-sp4): 34.6 ml LA dimension(2D): 3.7 cm TAPSE: 2.1 cm Time Measurements MV dec time: 0.21 sec Doppler Measurements & Calculations MV E max raul: 67.5 cm/sec Lat Peak E' Ralu: 9.5 cm/sec Med Peak E' Raul: 8.1 cm/sec MV A max raul: 66.6 cm/sec E/E' lat: 7.1 E/E' med: 8.3 MV E/A: 1.0 MV V2 max: 84.7 cm/sec MV P1/2t max raul: 84.7 cm/sec Ao V2 max: 126.2 cm/sec MV max P.9 mmHg MV P1/2t: 78.0 msec Ao max P.4 mmHg MV V2 mean: 49.9 cm/sec Ao V2 mean: 87.9 cm/sec MV mean P.2 mmHg MV dec slope: 318.1 cm/sec2 Ao mean P.5 mmHg MV V2 VTI: 22.7 cm MVA(P1/2t): 2.8 cm2 Ao V2 VTI: 25.5 cm AV (velocity ratio): 0.71 MVA(VTI): 2.6 cm2 EDA(I,D): 2.3 cm2 EDA(V,D): 2.4 cm2 LV V1 max: 93.2 cm/sec SV(LVOT): 58.9 ml PA V2 max: 99.7 cm/sec LV V1 max P.5 mmHg PA max PG (full): 2.5 mmHg LV V1 mean P.9 mmHg LV V1 mean: 64.6 cm/sec LV V1 VTI: 18.2 cm TR max raul: 216.8 cm/sec TR max P.8 mmHg ECHO/Echo Complete Interpretation Summary Normal left ventricle. Left ventricular systolic function is normal. The left ventricular ejection fraction is 60 %. Structurally normal valves. Ordering Physician: Deniz Walker Referring Physician: Deniz Walker Performed By: Subhash Mendez RCS
== END | disposition home or self-care (01) ==
LOC: CVS 09:06
PROVIDERS: PCP Family Medicine; Referring Provider Internal Medicine Cardiovascular Disease; Visit Provider Internal Medicine Cardiovascular Disease
DX: I42.0 Dilated cardiomyopathy (principal)
CPT/HCPCS: 93306

== ENCOUNTER 2024-04-02 17:58 | Emergency (ER) | payer MEDICARE, MEDICAID, SELFPAY ==
[2024-04-02 17:59] VITALS: BP 111/73; PULSE 66; RESP 16; TEMP 36.9; O2SAT 99; BMI 28.7
[2024-04-02 18:32] LABS: Absolute Lymphocyte Count 1.97 X10^3/uL (0.83-4.51); Absolute Neutrophil Count 6.4 X10^3/uL (2.0-7.7); Basophil# 0.05 X10^3/uL; Basophil% 0.5 % (0-1); Eosinophil# 0.82 X10^3/uL; Hematocrit 34.2 % (40-54); Hemoglobin 10.8 g/dL (13.0-16.5); Lymphocyte # 1.97 X10^3/ul (0.83-4.51); Lymphocyte % 19.3 % (19-41); Mean Corp Hgb Conc 31.6 g/dL (32-36); Mean Corpuscular Hgb 19.1 pg (27.0-32.0); Mean Corpuscular Volume 60.4 fL (80-94); Mean Platelet Vol. 10.1 fl (6.2-12.0); Monocyte# 0.89 X10^3/uL; Monocyte% 8.7 % (0-10); NRBC Flagged by Analyzer 0 % (0-5); Neutrophil # 6.43 X10^3/uL (2.7-7.7); Neutrophil % 62.8 % (47-70); Platelet Count 264 K/mm3 (150-450); RBC Distribution Width CV 14.7 % (11.6-14.6); RBC Distribution Width SD 30.5 fl (35.1-43.9); Red Blood Count 5.66 M/mm3 (4.6-6.2); White Blood Count 10.2 K/mm3 (4.4-11.0)
--- NOTE | 2024-04-02 18:35 | EDS_ITS ---
HPI History of Present Illness Chief Complaint: Abd Pain Detail of Chief Complaint: Midline upper abdominal pain Informant: patient and spouse/S.O. Onset/Context/Timing Onset: Days Context: Gradual Onset Timing: Continuous Quality: Pain Location: Midline upper abdomen Current Severity: Mild Maximum Severity: Moderate Worsened by: Nothing Relieved by: Nothing Associated Symptoms Associated Symptoms: None Narrative Narrative: Patient is a 58-year-old male. He has history of developmental disability, hypertension, dilated cardiomyopathy, tacky bradycardia syndrome, heart block, V. tach, hyperlipidemia who presents with atraumatic pain upper abdomen for the past couple of days. There is no associated fever, chills night sweats. He denies cardiac or respiratory symptoms. He denies intolerance to greasy or fried foods. He denies black or maroon-colored stool. There is no history of trauma. He denies dysuria, frequency, urgency or hematuria. He has no history of alcohol use or pancreatitis. There are no alleviating, exacerbating or precipitating factors. Prior similar symptoms: No Recent Illness/Hospitalization: No [facility] Medical History Essential hypertension Ulcerative colitis History of depression Paroxysmal atrial fibrillation Dilated cardiomyopathy Tachycardia-bradycardia syndrome Hyperlipidemia Second degree AV block, Mobitz type II Ventricular tachycardia History of complete heart block Benign hypertension Home Medications ?Medication ?Instructions ?Recorded ?Last Taken ?Type Handicap placard #1 ea 11/01/18 Unknown Rx cholecalciferol (vitamin D3) 10 400 unit PO DAILY supplement 04/23/19 06/18/21 History mcg (400 unit) capsule carvedilol 3.125 mg tablet 3.125 mg PO BID #180 tabs 05/17/23 Unknown Rx cyanocobalamin (vitamin B-12) 100 100 mcg PO DAILY 05/29/23 Unknown History mcg tablet (Vitamin B-12) famotidine 20 mg tablet 20 mg PO BID 05/29/23 Unknown History ferrous sulfate 325 mg (65 mg 325 mg PO BID 05/29/23 Unknown History iron) tablet (FeroSul) [id number] 200 mcg-lycop 1 tab PO DAILY 05/29/23 Unknown History 175 mcg-lutei 250 mcg-herb 178 tablet (Stephan Multivitamin For Men) lisinopril 2.5 mg tablet 2.5 mg PO DAILY #30 tabs 05/30/23 Unknown Rx rivaroxaban 20 mg tablet (Xarelto) 20 mg PO DAILY #30 tabs 05/30/23 Unknown Rx escitalopram oxalate 10 mg tablet 10 mg PO QDAY 01/24/24 Unknown History Allergy/AdvReac Type Severity Reaction Status Date / Time infliximab (From Remicade) Allergy Unknown Verified 04/02/24 17:59 Family History Unknown No problems noted. Surgical History History of ileostomy Biventricular implantable cardioverter-defibrillator (ICD) in situ Social History Smoking Status: Never smoker alcohol intake: never substance use type: does not use caffeine: Yes Type: tea what type of physical activity do you participate in: none seatbelt use: always do you feel safe at home: Yes ROS ROS ED Constitutional Constitutional ED: Denies chills, fever(s), subjective, sweats or weight loss Cardiovascular Cardiovascular: Denies chest pain, orthopnea, palpitations, paroxysmal nocturnal dyspnea or racing heartbeat Respiratory/Chest Respiratory/Chest: Denies cough, dyspnea, dyspnea on exertion, orthopnea or paroxysmal nocturnal dyspnea Gastrointestinal Gastrointestinal: Reports abdominal pain; Denies constipation, diarrhea, melena, nausea or vomiting Genitourinary Genitourinary ED: Denies dysuria, hematuria or urinary frequency Musculoskeletal Musculoskeletal: Denies back pain or neck pain Integumentary Denies rash Endocrine Endocrinology: Denies cold intolerance or heat intolerance Hematologic/Lymphatic Hematologic/Lymphatic: Reports systems reviewed and no addt'l complaints, except as documented EXAM Physical Exam Const Vital Signs: 04/02/24 17:59 Temperature 98.5 F Temperature Source Oral Pulse Rate 66 Respiratory Rate 16 Blood Pressure 111/73 Blood Pressure Mean 85 Pulse Ox 99 Oxygen Delivery Method Room Air Positive well nourished and well developed General Appearance ED: well developed, NAD and pallor HEENT Reports moist mucous membranes HEENT Narrative: Patient has poor dentition and evidence of chronic periodontal disease and gingivitis. Eyes PERRL and EOMs intact bilaterally General Eye ED: Negative for pale conjunctiva or scleral icterus Neck no lymphadenopathy, supple and no JVD Chest Wall inspection of chest normal and palpation of chest normal Resp normal respiratory effort and clear to auscultation bilaterally Cardio regular rate, regular rhythm, S1 normal heart sound, S2 normal heart sound and no murmurs GI normal to inspection, nondistended, normoactive bowel sounds, non-tender, non- distended and no masses; Negative for hepatosplenomegaly Palpation: soft Back/Spine no CVA tenderness Extremity normal to inspection Neuro oriented x3 and CN's II-XII intact bilaterally Sensorium / Orientation: alert Psych mental status grossly normal Skin no rashes or lesions noted, no wounds and skin turgor normal General Skin Exam: pallor; Negative for elasticity normal or jaundice MDM MDM MDM Narrative Medical decision making narrative: Patient has a benign abdomen. Patient has no prior history of abdominal pathology. To evaluate his upper abdominal pain hepatic, lipase and CBC were obtained. Since he has a benign abdominal exam imaging was not ordered initial. Lab Data Attestation: I reviewed the patient's lab results. Lab results narrative: White count and differential are normal. Patient is slightly anemic. He has had approximately a 1 g drop since earlier this month. Labs: Laboratory Results - last 24 hr 04/02/24 18:16 WBC 10.2 RBC 5.66 Hgb 10.8 L Hct 34.2 L MCV 60.4 L MCH 19.1 L MCHC 31.6 L RDW Std Deviation 30.5 L RDW Coeff of Milagros 14.7 H Plt Count 264 MPV 10.1 Immature Gran % (Auto) 0.700 Neut % (Auto) 62.8 Lymph % (Auto) 19.3 [place] % (Auto) 8.7 Eos % (Auto) 8.0 H Baso % (Auto) 0.5 Absolute Neuts (auto) 6.4 Absolute Lymphs (auto) 1.97 Nucleated RBC % 0 Sodium 134 L Potassium 3.9 Chloride 105 Carbon Dioxide 23.0 Anion Gap 6 BUN 31 H Creatinine 1.00 Estim Creat Clear Calc 74.16 Est GFR (MDRD) Af Amer 99 Est GFR (MDRD) Non-Af 82 BUN/Creatinine Ratio 31.0 H Glucose 111 H Calcium 9.2 Total Bilirubin 0.30 Direct Bilirubin 0.09 AST 15 ALT 26 Alkaline Phosphatase 95 Total Protein 7.4 Albumin 3.7 Globulin 3.7 Lipase 60 Treatment and Re-Evaluation :: Patient and significant other informed of results. Patient was told the cause of his pain is unknown. Since his workup is unremarkable and his exam was negative he was discharged to home Discharge Plan Triage Chief Complaint: Abd Pain ED Provider: Yanick Nelson Dx/Rx/DC Orders Clinical Impression: Acute upper abdominal pain, Biventricular implantable cardioverter- defibrillator (ICD) in situ, Developmental disability Instructions: ED Abd Pain Unknown ... Prescriptions: No Action cholecalciferol (vitamin D3) 400 unit capsule 400 unit PO DAILY famotidine 20 mg tablet 20 mg PO BID ferrous sulfate [FeroSul] 325 mg (65 mg iron) tablet 325 mg PO BID Stephan Multivitamin For Men 200-175-250 mcg tablet 1 tab PO DAILY cyanocobalamin (vitamin B-12) [Vitamin B-12] 100 mcg tablet 100 mcg PO DAILY escitalopram oxalate 10 mg tablet 10 mg PO QDAY (DME) Handicap placard Qty: 1 0RF Rx Instructions: Lifetime carvedilol 3.125 mg tablet 3.125 mg PO BID Qty: 180 3RF lisinopril 2.5 mg tablet 2.5 mg PO DAILY Qty: 30 11RF Xarelto 20 mg tablet 20 mg PO DAILY Qty: 30 11RF Rx Instructions: must administer with evening meal Primary Care Provider: Bunny Hendrix Referrals: Bunny Hendrix MD [Primary Care Provider] - 3-5 Days if not improving Print Language: [place] Citizen Disposition Disposition: Home, Self Care
[2024-04-02 18:51] LABS: AST(SGOT) 15 U/L (15-37); Alanine Aminotransfer ALT/SGPT 26 U/L (16-61); Albumin, Serum 3.7 g/dL (3.2-5.0); Alkaline Phosphatase 95 U/L (45-117); Anion Gap 6 (5-15); BUN 31 mg/dL (7-18); Bilirubin, Direct 0.09 mg/dL (0.00-0.30); Calcium,Total 9.2 mg/dL (8.5-10.1); Chloride 105 mmol/L (98-107); EST Glomerular Filtration Rate 82 mL/min (>60); Est Glom Filt Rate - Afr Amer 99 mL/min (>60); Estimated Creatinine Clearance 74.16 ml/min; Globulin 3.7 g/dL (2.2-4.2); Glucose 111 mg/dL (74-106); Lipase 60 U/L (13-75); Potassium 3.9 mmol/L (3.5-5.1); Protein, Total 7.4 g/dL (6.4-8.2); Sodium Level 134 mmol/L (136-145)
== END 2024-04-02 19:30 | disposition home or self-care (01) ==
PROVIDERS: Emergency Provider Emergency Medicine; PCP Family Medicine; Visit Provider Emergency Medicine
DX: R10.10 Upper abdominal pain, unspecified (principal); Z95.810 Presence of automatic (implantable) cardiac defibrillator
CPT/HCPCS: 80048; 80076; 83690; 85025; 99283; A4216

== ENCOUNTER 2024-04-14 10:45 | Emergency (ER) | payer MEDICARE, MEDICAID, SELFPAY ==
[2024-04-14 10:45] VITALS: BP 106/66; PULSE 96; RESP 16; TEMP 36.4; O2SAT 95; BMI 28.8
--- NOTE | 2024-04-14 11:11 | CT_ITS ---
STUDY: CT ABDOMEN AND PELVIS WITH CONTRAST REASON FOR EXAM: Male, 58 years old. Abdominal pain, history of ostomy. RADIATION DOSAGE (If Supplied By Facility): CTDIvol = ( 14.49 ) mGy, DLP = ( 763.89 ) mGycm TECHNIQUE: IV 100mL Isovue-300 was administered. Transaxial images were obtained from the dome of the diaphragm to the symphysis pubis. Multiplanar coronal and sagittal images were reformatted. The protocol utilizes one or more of the following dose reduction techniques: automated exposure control, adjustment of mA and/or kV according to patient size,and/or use of iterative reconstruction technique. COMPARISON: Prior study dated: 04/01/2023 FINDINGS: The visualized lung bases are unremarkable. The visualized portions of the heart are within normal limits. Normal liver. Normal gallbladder and extrahepatic biliary system. Normal spleen. Normal pancreas. Normal bilateral adrenal glands. Small bilateral simple cysts for which no further follow-up examination are unchanged. No evidence hydronephrosis. Anteriorly malrotated right kidney. Normal visualized stomach. Normal in caliber small bowel loops. Status post total colectomy. Lower quadrant ileostomy. No evidence of inflammatory changes or obstruction. Normal abdominal aorta. No retroperitoneal adenopathy. Normal urinary bladder. Prostatic calcifications. There is a small right inguinal hernia containing adipose tissue. No demonstrated acute osseous changes. CT/Abdomen/Pelvis W IV Cont ONLY IMPRESSION: 1. Status post total colectomy and right lower quadrant ileostomy. 2. No evidence of obstruction or inflammatory changes. 3. Otherwise no focal acute inflammatory process. Electronically Signed: Suhas Wolff MD at 13:19 [facility] ,
--- NOTE | 2024-04-14 11:12 | ED.VIS.GI ---
HPI HPI - GI History of Present Illness Chief Complaint: Abd Pain Narrative Narrative: 58-year-old male past medical history of developmental disability, hypertension, has an ostomy bag secondary to colitis/colectomy presents with abdominal pain that has been ongoing for weeks. He relates history that he was seen in the emergency department last week but still has had periumbilical abdominal pain. No fevers or chills, no nausea or vomiting, no exacerbating or alleviating factors. He states that his pain has been ongoing for weeks. Per triage, he may have noticed change in the output from his ostomy. [facility] Medical History Essential hypertension Ulcerative colitis History of depression Paroxysmal atrial fibrillation Dilated cardiomyopathy Tachycardia-bradycardia syndrome Hyperlipidemia Second degree AV block, Mobitz type II Ventricular tachycardia History of complete heart block Benign hypertension Home Medications ?Medication ?Instructions ?Recorded ?Last Taken ?Type Handicap placard #1 ea 11/01/18 Unknown Rx cholecalciferol (vitamin D3) 10 400 unit PO DAILY supplement 04/23/19 06/18/21 History mcg (400 unit) capsule carvedilol 3.125 mg tablet 3.125 mg PO BID #180 tabs 05/17/23 Unknown Rx cyanocobalamin (vitamin B-12) 100 100 mcg PO DAILY 05/29/23 Unknown History mcg tablet (Vitamin B-12) famotidine 20 mg tablet 20 mg PO BID 05/29/23 Unknown History ferrous sulfate 325 mg (65 mg 325 mg PO BID 05/29/23 Unknown History iron) tablet (FeroSul) [id number] 200 mcg-lycop 1 tab PO DAILY 05/29/23 Unknown History 175 mcg-lutei 250 mcg-herb 178 tablet (Stephan Multivitamin For Men) lisinopril 2.5 mg tablet 2.5 mg PO DAILY #30 tabs 05/30/23 Unknown Rx rivaroxaban 20 mg tablet (Xarelto) 20 mg PO DAILY #30 tabs 05/30/23 Unknown Rx escitalopram oxalate 10 mg tablet 10 mg PO QDAY 01/24/24 Unknown History Allergy/AdvReac Type Severity Reaction Status Date / Time infliximab (From Remicade) Allergy Unknown Verified 04/14/24 10:47 Family History Unknown No problems noted. Surgical History History of ileostomy Biventricular implantable cardioverter-defibrillator (ICD) in situ Social History Smoking Status: Never smoker alcohol intake: never substance use type: does not use caffeine: Yes Type: tea what type of physical activity do you participate in: none seatbelt use: always do you feel safe at home: Yes ROS ROS ED ROS Narrative Constitutional: No fever, no chills. HEENT: No sore throat. No neck pain. No loss of vision. No rhinorrhea. Cardiovascular: No chest pain. No palpitations. No pedal edema. Respiratory: No cough, no shortness of breath. Abdominal: Positive weeks along of abdominal pain. No nausea. No vomiting. Questionable low output from ostomy. No exacerbating or alleviating factors. Genitourinary: No dysuria. No hematuria. Musculoskeletal: No myalgias. No arthralgias. Neurologic: No headaches. No dizziness. No lightheadedness. Skin: No rash. No change in color. Psychiatric: No depression. No anxiety. EXAM Physical Exam Narrative Exam Narrative: Afebrile. Vital signs noted. Cardiovascular examination reveals a regular rate and rhythm. Lungs are clear to auscultation bilaterally. Abdomen is soft and nontender without guarding or rebound. Positive bowel sounds. Positive air as well as small amount of feces in ostomy bag. No blood. Neurological examination nonfocal and nonlateralizing. Const Vital Signs: 04/14/24 10:45 04/14/24 13:04 Temperature 97.5 F L Temperature Source Temporal Pulse Rate 96 63 Respiratory Rate 16 15 Blood Pressure 106/66 111/63 Blood Pressure Mean 79 79 Pulse Ox 95 100 Oxygen Delivery Method Room Air Room Air MDM MDM MDM Narrative Medical decision making narrative: I reviewed the patient's prior ED visit and he did have laboratory work performed, but no imaging. As this is his second visit to the ED, I will obtain baseline laboratories including CBC, CMP, and lipase to rule out pancreatitis. Also the differential diagnosis would be bowel obstruction versus partial bowel obstruction versus nonspecific abdominal pain. I will obtain CT imaging as well to rule out obstruction. I reviewed his laboratory work and compared it to prior labs and see no significant change. He has normal white count of 8.3 with hemoglobin stable at 10.5, hematocrit 34.1, platelet count normal at 270. CMP is remarkable for glucose of 113 with a BUN of 18 and creatinine 0.92. Sodium normal at 137 with potassium normal at 4.1. Lipase normal at 34 so I doubt pancreatitis. Urinalysis negative for infection with 0-5 WBCs. I do not feel antibiotics are indicated. I reviewed the radiology report of the CT of the abdomen and pelvis which shows prior total colectomy with a right ileostomy. There is no evidence of obstruction. Repeat examination at approximately 1350 shows him resting comfortably. I feel he can be discharged safely home with follow-up to his primary care provider. I do not feel he requires observation or admission or meets any criteria. I am unsure as to the cause of his reported abdominal pain for weeks but feel he can be discharged to follow-up. Return instructions reviewed. Disposition is discharged home in stable condition. History & Record Review Discussion w/independent historian: Patient Additional record(s) reviewed:: Prior labs Lab Data Attestation: I reviewed the patient's lab results. Labs: Laboratory Results - last 24 hr 04/14/24 04/14/24 11:03 13:00 WBC 8.3 RBC 5.53 Hgb 10.5 L Hct 34.1 L MCV 61.7 L MCH 19.0 L MCHC 30.8 L RDW Std Deviation 31.7 L RDW Coeff of Milagros 15.0 H Plt Count 270 MPV 10.2 Immature Gran % (Auto) 0.700 Neut % (Auto) 68.1 Lymph % (Auto) 15.0 L Hunt % (Auto) 6.9 Eos % (Auto) 8.7 H Baso % (Auto) 0.6 Absolute Neuts (auto) 5.7 Absolute Lymphs (auto) 1.24 Nucleated RBC % 0 Sodium 137 Potassium 4.1 Chloride 105 Carbon Dioxide 26.0 Anion Gap 6 BUN 18 Creatinine 0.92 Estim Creat Clear Calc 80.80 Est GFR (MDRD) Af Amer 110 Est GFR (MDRD) Non-Af 91 BUN/Creatinine Ratio 19.6 Glucose 113 H Calcium 9.2 Total Bilirubin 0.40 AST 18 ALT 28 Alkaline Phosphatase 89 Total Protein 7.9 Albumin 3.6 Globulin 4.3 H Albumin/Globulin Ratio 0.8 L Lipase 34 Urine Color Yellow Urine Clarity Clear Urine pH 6.0 Ur Specific Bryant 1.010 Urine Protein 30 H Urine Glucose (UA) Normal Urine Ketones Negative Urine Occult Blood Negative Urine Nitrite Negative Urine Bilirubin Negative Urine Urobilinogen Normal Ur Leukocyte Esterase 25 H Urine RBC 0 SEEN Urine WBC 0-5 SEEN Ur Squamous Epith Cells 0 SEEN Urine Bacteria 0 SEEN Urine Mucus 0 SEEN Radiography Diagnostic Testing: Clinical Impression(s) from Imaging Studies Abdomen/Pelvis CT 04/14/24 11:11 IMPRESSION: 1. Status post total colectomy and right lower quadrant ileostomy. 2. No evidence of obstruction or inflammatory changes. 3. Otherwise no focal acute inflammatory process. Electronically Signed: Suhas Wolff MD at 13:19 EST , Discharge Plan Triage Chief Complaint: Abd Pain ED Provider: Jaiden Gallo Dx/Rx/DC Orders Clinical Impression: Abdominal pain, History of colectomy, Developmental disability Prescriptions: No Action cholecalciferol (vitamin D3) 400 unit capsule 400 unit PO DAILY famotidine 20 mg tablet 20 mg PO BID ferrous sulfate [FeroSul] 325 mg (65 mg iron) tablet 325 mg PO BID Stephan Multivitamin For Men 200-175-250 mcg tablet 1 tab PO DAILY cyanocobalamin (vitamin B-12) [Vitamin B-12] 100 mcg tablet 100 mcg PO DAILY escitalopram oxalate 10 mg tablet 10 mg PO QDAY (DME) Handicap placard Qty: 1 0RF Rx Instructions: Lifetime carvedilol 3.125 mg tablet 3.125 mg PO BID Qty: 180 3RF lisinopril 2.5 mg tablet 2.5 mg PO DAILY Qty: 30 11RF Xarelto 20 mg tablet 20 mg PO DAILY Qty: 30 11RF Rx Instructions: must administer with evening meal Primary Care Provider: Bunny Hendrix Referrals: Bunny Hendrix MD [Primary Care Provider] - 3-5 Days Print Language: Turkish Disposition Disposition: Home, Self Care
[2024-04-14 11:18] LABS: Absolute Lymphocyte Count 1.24 X10^3/uL (0.83-4.51); Absolute Neutrophil Count 5.7 X10^3/uL (2.0-7.7); Basophil# 0.05 X10^3/uL; Basophil% 0.6 % (0-1); Eosinophil# 0.72 X10^3/uL; Eosinophils% 8.7 % (0-5); Hematocrit 34.1 % (40-54); Hemoglobin 10.5 g/dL (13.0-16.5); Lymphocyte # 1.24 X10^3/ul (0.83-4.51); Mean Corp Hgb Conc 30.8 g/dL (32-36); Mean Corpuscular Volume 61.7 fL (80-94); Mean Platelet Vol. 10.2 fl (6.2-12.0); Monocyte# 0.57 X10^3/uL; Monocyte% 6.9 % (0-10); NRBC Flagged by Analyzer 0 % (0-5); Neutrophil # 5.65 X10^3/uL (2.7-7.7); Neutrophil % 68.1 % (47-70); Platelet Count 270 K/mm3 (150-450); RBC Distribution Width SD 31.7 fl (35.1-43.9); Red Blood Count 5.53 M/mm3 (4.6-6.2); White Blood Count 8.3 K/mm3 (4.4-11.0)
[2024-04-14 11:50] LABS: ALB/GLOB Ratio 0.8 RATIO (0.9-2.4); AST(SGOT) 18 U/L (15-37); Alanine Aminotransfer ALT/SGPT 28 U/L (16-61); Albumin, Serum 3.6 g/dL (3.2-5.0); Alkaline Phosphatase 89 U/L (45-117); Anion Gap 6 (5-15); BUN 18 mg/dL (7-18); BUN/Creat Ratio 19.6 RATIO (10-20); Calcium,Total 9.2 mg/dL (8.5-10.1); Chloride 105 mmol/L (98-107); Creatinine, Serum 0.92 mg/dL (0.70-1.30); EST Glomerular Filtration Rate 91 mL/min (>60); Est Glom Filt Rate - Afr Amer 110 mL/min (>60); Globulin 4.3 g/dL (2.2-4.2); Glucose 113 mg/dL (74-106); Lipase 34 U/L (13-75); Potassium 4.1 mmol/L (3.5-5.1); Protein, Total 7.9 g/dL (6.4-8.2); Sodium Level 137 mmol/L (136-145)
[2024-04-14 13:03] LABS: Bacteria 0 SEEN /hpf (None Seen); Mucous, Urine 0 SEEN /hpf (<or=2+); Red Blood Cells-Urine 0 SEEN /hpf (0-5); Squamous Epithelial Cells - UA 0 SEEN /hpf (0-5)
[2024-04-14 13:04] VITALS: BP 111/63; PULSE 63; RESP 15; O2SAT 100
[2024-04-14 13:08] LABS: Color, Urine Yellow (Yellow); Glucose, Dipstick Normal (Normal); Ketone-Dipstick Negative (Negative); Leukocyte Esterase-Dipstick 25 /ul (Negative); Nitrite-Dipstick Negative (Negative); Occult Blood-Urine Negative /ul (Negative); Protein-Dipstick 30 mg/dl (Negative); Urine Bilirubin Dipstick Negative (Negative); Urine Clarity Clear (Clear); Urine Urobilinogen Normal (Normal)
[2024-04-14 13:19] LABS: White Blood Cells 0-5 SEEN /hpf (0-5)
[2024-04-14 14:13] VITALS: BP 104/76; PULSE 78; RESP 16; O2SAT 98
== END 2024-04-14 14:16 | disposition home or self-care (01) ==
PROVIDERS: Emergency Provider Emergency Medicine; PCP Family Medicine; Visit Provider Emergency Medicine
DX: R10.9 Unspecified abdominal pain (principal); Z93.3 Colostomy status; Z95.810 Presence of automatic (implantable) cardiac defibrillator
CPT/HCPCS: 74177; 80053; 81001; 83690; 85025; 99282; Q9967; A4216

== ENCOUNTER 2024-04-17 10:34 | Emergency (ER) | payer MEDICARE, MEDICAID, SELFPAY ==
[2024-04-17 10:36] VITALS: BP 101/66; PULSE 90; RESP 16; TEMP 36.6; O2SAT 100; BMI 28.8
--- NOTE | 2024-04-17 11:22 | EX.ED.DYSGE1 ---
HPI <LEA Cortez - Last Filed: 04/17/24 13:23> History of Present Illness Chief Complaint: General Illness Narrative Narrative: Patient presenting today due to,not feeling well after getting a flu shot this morning. He reports that he has not had the flu shot for many years. He started to feel slightly nauseous after getting the shot but now feels better. He no longer has any acute complaints. He reports that he has had nasal congestion and a nonproductive cough off and on over the last few weeks but is managing it with [id number] cold and flu medications. He denies fevers, chills, abdominal pain, chest pain, shortness of breath. He has a PMH of developmental delay and HTN. PFS <LEA Cortez - Last Filed: 04/17/24 13:23> [facility] Medical History Essential hypertension Ulcerative colitis History of depression Paroxysmal atrial fibrillation Dilated cardiomyopathy Tachycardia-bradycardia syndrome Hyperlipidemia Second degree AV block, Mobitz type II Ventricular tachycardia History of complete heart block Benign hypertension Home Medications ?Medication ?Instructions ?Recorded ?Last Taken ?Type Handicap placard #1 ea 11/01/18 Unknown Rx cholecalciferol (vitamin D3) 10 400 unit PO DAILY supplement 04/23/19 06/18/21 History mcg (400 unit) capsule cyanocobalamin (vitamin B-12) 100 100 mcg PO DAILY 05/29/23 Unknown History mcg tablet (Vitamin B-12) famotidine 20 mg tablet 20 mg PO BID 05/29/23 Unknown History ferrous sulfate 325 mg (65 mg 325 mg PO BID 05/29/23 Unknown History iron) tablet (FeroSul) [id number]-vys-mimjm 200 mcg-lycop 1 tab PO DAILY 05/29/23 Unknown History 175 mcg-lutei 250 mcg-herb 178 tablet (Stephan Multivitamin For Men) rivaroxaban 20 mg tablet (Xarelto) 20 mg PO DAILY #30 tabs 05/30/23 Unknown Rx escitalopram oxalate 10 mg tablet 10 mg PO QDAY 01/24/24 Unknown History carvedilol 3.125 mg tablet 3.125 mg PO BID #180 tabs 04/15/24 Unknown Rx lisinopril 2.5 mg tablet 2.5 mg PO DAILY #30 tabs 04/15/24 Unknown Rx Allergy/AdvReac Type Severity Reaction Status Date / Time infliximab (From Remicade) Allergy Unknown Verified 04/17/24 10:37 Family History Unknown No problems noted. Surgical History History of ileostomy Biventricular implantable cardioverter-defibrillator (ICD) in situ Social History Smoking Status: Never smoker alcohol intake: never substance use type: does not use caffeine: Yes Type: tea what type of physical activity do you participate in: none seatbelt use: always do you feel safe at home: Yes ROS <LEA Cortez - Last Filed: 04/17/24 13:23> ROS ED Constitutional Constitutional ED: Denies chills or fever(s) Cardiovascular Cardiovascular: Denies chest pain Respiratory/Chest Respiratory/Chest: Reports cough; Denies dyspnea Gastrointestinal Gastrointestinal: Reports nausea; Denies abdominal pain or vomiting Musculoskeletal Musculoskeletal: Denies arthralgias or myalgias Integumentary Denies rash Neurologic Neurologic: Denies weakness EXAM <LEA Cortez - Last Filed: 04/17/24 13:23> Physical Exam Const Vital Signs: 04/17/24 10:36 04/17/24 10:49 04/17/24 12:31 Temperature 98 F 98 F Temperature Source Oral Pulse Rate 90 69 Respiratory Rate 16 14 Respiratory Effort Normal Non-Labored Blood Pressure 101/66 113/68 Blood Pressure Mean 77 83 Pulse Ox 100 100 Oxygen Delivery Method Room Air Positive well nourished, well developed and no apparent distress General Appearance ED: well developed HEENT Reports normocephalic and head/scalp atraumatic Mouth ED: Yes moist mucous membranes normal Eyes PERRL and EOMs intact bilaterally Neck full ROM and supple Chest Wall inspection of chest normal Resp normal respiratory effort and clear to auscultation bilaterally Cardio regular rate and regular rhythm GI soft to palpation, non-tender, non-distended and no masses Back/Spine normal ROM and normal to inspection Extremity normal to inspection and full ROM Neuro oriented x3, CN's II-XII intact bilaterally, moves all extremities, no focal motor deficits and no sensory deficits noted Sensorium / Orientation: awake and alert Psych mental status grossly normal and thought process normal Skin no rashes or lesions noted and no wounds <Dr. Oanh Ventura DO - Last Filed: 04/19/24 03:31> Physical Exam Const Vital Signs: 04/17/24 10:36 04/17/24 10:49 04/17/24 12:31 Temperature 98 F 98 F Temperature Source Oral Pulse Rate 90 69 Respiratory Rate 16 14 Respiratory Effort Normal Non-Labored Blood Pressure 101/66 113/68 Blood Pressure Mean 77 83 Pulse Ox 100 100 Oxygen Delivery Method Room Air [facility] <LEA Cortez - Last Filed: 04/17/24 13:23> [facility] Narrative Medical decision making narrative: Patient presenting today after not feeling well after having the influenza vaccine this morning. He felt nauseous after the shot and then reported that once he got here he felt better. He no longer has any acute complaints. He denies feeling nauseous currently. I did offer to give him antiemetics, he declined. It sounds like he has had cold-like symptoms for a few weeks consisting of a stuffy nose and nonproductive cough, I suspect that this is viral in nature. He has been taking dusm-pln-[id number] cold and flu medications which has been helping him. His O2 saturation is 100% on room air, he is afebrile, no chest pain or shortness of breath to indicate pneumonia or need for chest x-ray. He otherwise is well-appearing and in no acute distress. I recommended he follow-up with his PCP and he will be discharged home in stable condition. <Dr. Oanh Ventura, - Last Filed: 04/19/24 03:31> [facility] Narrative Medical decision making narrative: Patient presenting today after not feeling well after having the influenza vaccine this morning. He felt nauseous after the shot and then reported that once he got here he felt better. He no longer has any acute complaints. He denies feeling nauseous currently. I did offer to give him antiemetics, he declined. It sounds like he has had cold-like symptoms for a few weeks consisting of a stuffy nose and nonproductive cough, I suspect that this is viral in nature. He has been taking uwhy-ldh-xdfnoxm cold and flu medications which has been helping him. His O2 saturation is 100% on room air, he is afebrile, no chest pain or shortness of breath to indicate pneumonia or need for chest x-ray. He otherwise is well-appearing and in no acute distress. I recommended he follow-up with his PCP and he will be discharged home in stable condition. I have personally performed a face to face assessment of the patient and have reviewed the HUYEN Note. I performed a substantive portion of the visit including all aspects of the following. My agarwal findings include: History is Patient is a 58-year-old male with history of developmental disability, proximal atrial fibrillation, heart block s/p ICD placement presenting for transient episode of nausea after receiving his flu vaccine. Patient also notes for the past few weeks he has been having nasal congestion nonproductive cough. No fevers reported. Currently denied any symptoms. Patient was quite well-appearing. Offered viral testing for COVID, flu and RSV but patient declined. Patient is well-appearing with normal vital signs. Given that his nausea has subsided he declines any medication for this. Patient will be started on Zyrtec for this nasal congestion. Suspect viral syndrome versus brief vaccine reaction with his nausea today. Patient overall is well-appearing and will be discharged home. Given return precautions. Close follow-up with primary care doctor. Other additions or changes: [None] Discharge Plan Triage Chief Complaint: General Illness ED Midlevel Provider: Erendira Smith ED Provider: Oanh Ventura Dx/Rx/DC Orders Clinical Impression: Nausea after vaccination, URI (upper respiratory infection) Instructions: Flu Shots for People 50 or Older Prescriptions: No Action cholecalciferol (vitamin D3) 400 unit capsule 400 unit PO DAILY famotidine 20 mg tablet 20 mg PO BID ferrous sulfate [FeroSul] 325 mg (65 mg iron) tablet 325 mg PO BID Stephan Multivitamin For Men 200-175-250 mcg tablet 1 tab PO DAILY cyanocobalamin (vitamin B-12) [Vitamin B-12] 100 mcg tablet 100 mcg PO DAILY escitalopram oxalate 10 mg tablet 10 mg PO QDAY (DME) Handicap placard Qty: 1 0RF Rx Instructions: Lifetime Xarelto 20 mg tablet 20 mg PO DAILY Qty: 30 11RF Rx Instructions: must administer with evening meal carvedilol 3.125 mg tablet 3.125 mg PO BID Qty: 180 3RF lisinopril 2.5 mg tablet 2.5 mg PO DAILY Qty: 30 11RF Primary Care Provider: Bunny Hendrix Referrals: Bunny Hendrix MD [Primary Care Provider] - 5-7 Days Activity Restrictions/Additional Instructions: Follow-up with your PCP. Print Language: Amharic Disposition Disposition: Home, Self Care Discharge Date/Time: 04/17/24 12:33
[2024-04-17 12:31] VITALS: BP 113/68; PULSE 69; RESP 14; TEMP 36.6; O2SAT 100
== END 2024-04-17 12:33 | disposition home or self-care (01) ==
PROVIDERS: Emergency Provider Emergency Medicine; PCP Family Medicine; Visit Provider Emergency Medicine
DX: R11.0 Nausea (principal); J06.9 Acute upper respiratory infection, unspecified; Z95.810 Presence of automatic (implantable) cardiac defibrillator
CPT/HCPCS: 99282

== ENCOUNTER → 2024-07-14 | Outpatient (CLI) | payer MEDICARE, MEDICAID, SELFPAY ==
[2024-07-14 16:56] LABS: Absolute Lymphocyte Count 1.54 X10^3/uL (0.83-4.51); Absolute Neutrophil Count 5.5 X10^3/uL (2.0-7.7); Basophil# 0.07 X10^3/uL; Basophil% 0.8 % (0-1); Eosinophil# 1.04 X10^3/uL; Eosinophils% 11.7 % (0-5); Hematocrit 37.8 % (40-54); Hemoglobin 11.6 g/dL (13.0-16.5); Lymphocyte # 1.54 X10^3/ul (0.83-4.51); Lymphocyte % 17.4 % (19-41); Mean Corp Hgb Conc 30.7 g/dL (32-36); Mean Corpuscular Hgb 19.2 pg (27.0-32.0); Mean Corpuscular Volume 62.5 fL (80-94); Mean Platelet Vol. 10.9 fl (6.2-12.0); Monocyte# 0.71 X10^3/uL; NRBC Flagged by Analyzer 0 % (0-5); Neutrophil # 5.46 X10^3/uL (2.7-7.7); Neutrophil % 61.6 % (47-70); Platelet Count 223 K/mm3 (150-450); RBC Distribution Width CV 14.9 % (11.6-14.6); RBC Distribution Width SD 31.5 fl (35.1-43.9); Red Blood Count 6.05 M/mm3 (4.6-6.2); White Blood Count 8.9 K/mm3 (4.4-11.0)
[2024-07-14 17:26] LABS: Anion Gap 12 (5-15); BUN 15 mg/dL (4-19); BUN/Creat Ratio 18.6 RATIO (10-20); Calcium,Total 9.3 mg/dL (7.6-11.0); Carbon Dioxide 25.3 mmol/L (21.0-32.0); Chloride 105 mmol/L (98-108); Creatinine, Serum 0.81 mg/dL (0.70-1.20); EST Glomerular Filtration Rate 104 (>60); Glucose 76 mg/dL (70-99); Potassium 3.6 mmol/L (3.3-5.1); Sodium Level 142 mmol/L (133-145)
== END | disposition home or self-care (01) ==
LOC: LAB 15:56
PROVIDERS: PCP Family Medicine; Referring Provider Nurse Practitioner Family; Visit Provider Nurse Practitioner Family
DX: R42 Dizziness and giddiness (principal)
CPT/HCPCS: 36415; 80048; 85025

== ENCOUNTER → 2024-09-16 | Outpatient (CLI) | payer MEDICARE, MEDICAID, SELFPAY ==
[2024-09-16 15:15] LABS: Bacteria 0 SEEN /hpf (None Seen); Mucous, Urine 0 SEEN /hpf (<or=2+); Squamous Epithelial Cells - UA 0 SEEN /hpf (0-5)
[2024-09-16 16:10] LABS: Hematocrit 36.8 % (40-54); Hemoglobin 11.3 g/dL (13.0-16.5); Mean Corp Hgb Conc 30.7 g/dL (32-36); Mean Corpuscular Hgb 18.7 pg (27.0-32.0); Platelet Count 200 K/mm3 (150-450); RBC Distribution Width CV 17.3 % (11.6-14.6); RBC Distribution Width SD 33.3 fl (35.1-43.9); Red Blood Count 6.03 M/mm3 (4.6-6.2); White Blood Count 7.1 K/mm3 (4.4-11.0)
[2024-09-16 16:23] LABS: International Normalized Ratio 1.1; Prothrombin Time (Protime)PT. 13.9 SECONDS (11.7-14.9)
[2024-09-16 16:45] LABS: Color, Urine Yellow (Yellow); Glucose, Dipstick Normal (Normal); Ketone-Dipstick Negative (Negative); Leukocyte Esterase-Dipstick Negative /ul (Negative); Nitrite-Dipstick Negative (Negative); Occult Blood-Urine 10 /ul (Negative); Protein-Dipstick 15 mg/dl (Negative); Specific Gravity, Urine 1.025 (1.002-1.030); Urine Bilirubin Dipstick Negative (Negative); Urine Clarity Clear (Clear); Urine Urobilinogen Normal (Normal)
[2024-09-16 16:47] LABS: Anion Gap 10 (5-15); BUN 16 mg/dL (4-19); BUN/Creat Ratio 19.3 RATIO (10-20); Calcium,Total 9.4 mg/dL (7.6-11.0); Carbon Dioxide 25.7 mmol/L (21.0-32.0); Chloride 103 mmol/L (98-108); EST Glomerular Filtration Rate 104 (>60); Glucose 77 mg/dL (70-99); Potassium 3.8 mmol/L (3.3-5.1); Sodium Level 139 mmol/L (133-145)
[2024-09-16 17:38] LABS: Red Blood Cells-Urine 0-5 SEEN /hpf (0-5); White Blood Cells 0-5 SEEN /hpf (0-5)
== END | disposition home or self-care (01) ==
LOC: LAB 15:02
PROVIDERS: PCP Family Medicine; Referring Provider Nurse Practitioner Family; Visit Provider Nurse Practitioner Family
DX: I42.0 Dilated cardiomyopathy (principal); I48.0 Paroxysmal atrial fibrillation; I47.20 Ventricular tachycardia, unspecified; I44.1 Atrioventricular block, second degree; Z86.79 Personal history of other diseases of the circulatory system; Z95.810 Presence of automatic (implantable) cardiac defibrillator
CPT/HCPCS: 36415; 80048; 81001; 85027; 85610

== ENCOUNTER 2024-09-23 07:56 | Day surgery (SDC) | payer MEDICARE, MEDICAID, SELFPAY ==
[2024-09-22 08:50] VITALS: BMI 30.1
--- NOTE | 2024-09-23 11:45 | EX.DEFIBPR_ITS ---
Defibrillator Procedure Note Defibrillator Procedure Note Yousif Plata is a 58 year old male who has a past medical history of a dilated c adiomyopathy s/p UNDERWATER PHOTOGRAPHER-D implant, who presented to the [place] EP lab for further evaluation regarding a UNDERWATER PHOTOGRAPHER-D generator changeout . The patient was brought to the electrophysiology laboratory in a fasting state. Only local lidocaine and benadryl were given. The left shoulder area was prepped and draped in the usual manner and the skin and subcutaneous tissues below the [ ] clavicle were infiltrated with 1% lidocaine for local anesthesia. The skin was sharply incised. Electrocautery and blunt dissection were carried out to the level of the pulse generator. The device was disconnected from the leads. The new device was connected to the leads. Stable lead parameters. The device was noted to function appropriately. The pocket was noted to have an absence of active bleeding. The pulse generator was placed in the pocket and sutured to the pre-pectoral fascia. The pocket was then irrigated with antibiotic solution. The incision was closed with two layers of 2-0 Vicryl and a subcuticular closure of 4-0 Vicryl. The incision was dressed with Aquacel. Conclusions Successful implantation UNDERWATER PHOTOGRAPHER-D generator changeout with stable parameters Recommendations 1. Routine follow-up in the device clinic. 2. Aquacell to remain on for 1 week. 3. Device follow up as scheduled. 4. Hold anticoagulation for 24 hours (No heparin IV or NOAC, ok to continue warfarin). 5. The patient can continue to follow-up with Dr. Walker.
== END 2024-09-23 12:45 | disposition home or self-care (01) ==
PROVIDERS: PCP Family Medicine; Referring Provider Internal Medicine; Visit Provider Internal Medicine
DX: I10 Essential (primary) hypertension (principal); I48.0 Paroxysmal atrial fibrillation; I47.20 Ventricular tachycardia, unspecified; E78.5 Hyperlipidemia, unspecified; E66.9 Obesity, unspecified; Z79.01 Long term (current) use of anticoagulants; Z79.899 Other long term (current) drug therapy; Z95.810 Presence of automatic (implantable) cardiac defibrillator; Z68.30 Body mass index [BMI] 30.0-30.9, adult
CPT/HCPCS: 33264